=== PATIENT | male | born 1950 | race Caucasian/White ===

== ENCOUNTER 2018-03-17 11:01 | Emergency (ER) | payer MEDICARE, OTHER ==
--- NOTE | 2018-03-17 11:57 | ER Document Report ---
ED Medical Screen (RME) - General TRAVEL OUTSIDE OF THE [place] IN LAST 30 DAYS: No <HARVEY MEDRANO - Last Filed: 03/17/18 12:06> - HPI Patient complains to provider of: Pain and swelling in the left leg Onset: Other - This 68-year-old man who presents for evaluation of pain in the left lower extremity that developed over the last 3 days which he believes is related to cellulitis. He is twice had cellulitis in the past once requiring hospitalization. He has swelling in the lower legs chronically but this is worse he says it is warm, painful, making it somewhat difficult to walk. He is otherwise has no complaints denies fevers chills lightheadedness focal numbness or weakness. <CATHLEEN CASTRO - Last Filed: 03/17/18 15:12> - General Chief Complaint: Leg Swelling Stated Complaint: LEFT LEG PAIN Time Seen by Provider: 03/17/18 11:12 Notes: 68-year-old male to the emergency department complaining of left lower extremity cellulitis. Has had multiple rounds of cellulitis to left lower extremity in the past. Began having fever several days ago. Noticed the redness of his left leg shortly afterwards. Also states that he has a mild rash in his groin that he wants to get checked out. I have greeted and performed a rapid initial assessment of this patient. A comprehensive ED assessment and evaluation of the patient, analysis of test results and completion of the medical decision making process will be conducted by additional ED providers. (HAREVY MEDRANO) - Related Data Allergies/Adverse Reactions: iodine Allergy (Verified 03/17/18 11:05) Past Medical History - General Information source: Patient - Social History Cigarette use (# per day): No Chew tobacco use (# tins/day): No Frequency of alcohol use: None Drug Abuse: None - Medical History Medical History: Other - Hypertension, hyperlipidemia, recurrent cellulitis <CATHLEEN CASTRO - Last Filed: 03/17/18 15:12> Review of Systems - Review of Systems Musculoskeletal: See HPI -: Yes All other systems reviewed and negative <CATHLEEN CASTRO - Last Filed: 03/17/18 15:12> Physical Exam - Vital signs Interpretation: Normal <HARVEY MEDRANO - Last Filed: 03/17/18 12:06> - General General appearance: Appears well In distress: None - HEENT Head: Normocephalic Eyes: Normal Conjunctiva: Normal - Respiratory Respiratory status: No respiratory distress Chest status: Nontender Breath sounds: Normal - Cardiovascular Rhythm: Regular Heart sounds: Normal auscultation Murmur: No - Abdominal Inspection: Normal Distension: No distension - Back Back: Normal - Extremities General upper extremity: Normal inspection General lower extremity: Other - The left lower extremity demonstrates +2 pitting edema, the right lower extremity demonstrates +2 pitting edema, there is marked erythema extending from the mid foot along the left foot into the bustos , there is no desquamation, there is a negative Nikolsky sign, the skin is warm to the touch. <CATHLEEN CASTRO - Last Filed: 03/17/18 15:12> - Vital signs Vitals: Temp Pulse Resp BP Pulse Ox 98.9 F 96 20 136/63 H 99 03/17/18 11:08 03/17/18 11:08 03/17/18 11:08 03/17/18 11:08 03/17/18 11:08 - Extremities Notes: The left lower extremity demonstrates redness up to the mid calf area with significant edema noted to the left lower extremity. Edema to the right lower extremity as well. Clubfoot. (HAVREY MEDRANO) Course <HARVEY MEDRANO - Last Filed: 03/17/18 12:06> - Laboratory Result Diagrams: 03/17/18 12:11 03/17/18 12:11 <CATHLEEN CASTRO - Last Filed: 03/17/18 15:12> - Re-evaluation Re-evalutation: 03/17/18 15:09 68-year-old male presented for evaluation of pain and swelling the right lower extremity, is consistent with previous episodes of cellulitis is twice had cellulitis in the past was requiring hospitalization. He does not believe this is a bad at that time. He has not had any systemic signs of infection, overall is well-appearing. He still able to ambulate without any assistance. Through triage she had ordered already a DVT study as well as labs. He does have a modestly elevated CRP and ESR which are in conjunction likely with his developing cellulitis he does not have any suggestion of osteomyelitis. Current plan will be for this patient to undergo discharge return precautions prescription for both Keflex as well as clindamycin to cover presumptively for possible developing staph infection. He is given very strict return precautions and importance of follow-up was explained over again. (CATHLEEN CASTRO) - Vital Signs Vital signs: Temp Pulse Resp BP Pulse Ox 97.5 F 80 20 140/72 H 97 03/17/18 15:00 03/17/18 15:00 03/17/18 15:00 03/17/18 15:00 03/17/18 15:00 - Laboratory Laboratory results interpreted by ma: 03/17/18 03/17/18 12:11 12:11 Monocytes % (Manual) 2 L Metamyelocytes % 1 H ESR 84 H Potassium 5.4 H BUN 26 H Glucose 240 H AST 9 L ALT 19 L C-Reactive Protein 46.9 H Doctor's Discharge <HARVEY MEDRANO - Last Filed: 03/17/18 12:06> <CATHLEEN CASTRO - Last Filed: 03/17/18 15:12> - Discharge Clinical Impression: Cellulitis Condition: Stable Disposition: HOME, SELF-CARE Instructions: Cellulitis ([facility]) Additional Instructions: You were seen today in the emergency department for cellulitis, you had an evaluation including a physical exam and tests of your blood. Take the antibiotic prescribed as directed, return for any worsening fevers or chills, if it is not improved within 24 hours, If you begin to feel worse. Otherwise follow-up with your primary physician as early as possible next week for recheck. Prescriptions: Cephalexin Monohydrate [Keflex 500 mg Capsule] 500 mg PO Q6H 7 Days #30 capsule Clindamycin HCl [Cleocin 150 mg Capsule] 450 mg PO TID #40 capsule Referrals: RAZ LÓPEZ MD [HONORARY] - Follow up as needed
[2018-03-17 13:05] LABS: HEMATOCRIT 44.2 % (37.9-51.0); HEMOGLOBIN 14.7 g/dL (13.5-17.0); MEAN CORPUSCULAR HEMOGLOBIN 29.1 pg (27.0-33.4); MEAN CORPUSCULAR HGB CONC 33.3 g/dL (32.0-36.0); MEAN CORPUSCULAR VOLUME 87 fl (80-97); PLATELET COUNT 221 10^3/uL (150-450); RED BLOOD COUNT 5.06 10^6/uL (4.35-5.55); RED CELL DISTRIBUTION WIDTH 13.8 % (11.5-14.0); WHITE BLOOD COUNT 8.5 10^3/uL (4.0-10.5)
[2018-03-17 13:07] LABS: ALANINE AMINOTRANSFERASE 19 U/L (21-72); ALKALINE PHOSPHATASE 93 U/L (38-126); ANION GAP 16 (5-19); ASPARTATE AMINO TRANSFERASE 9 U/L (17-59); BILIRUBIN,DIRECT 0.4 mg/dL (0.0-0.4); BILIRUBIN,TOTAL 0.6 mg/dL (0.2-1.3); BLOOD UREA NITROGEN 26 mg/dL (7-20); C-REACTIVE PROTEIN 46.9 mg/L (<10.0); CALCIUM 9.9 mg/dL (8.4-10.2); CARBON DIOXIDE 25 mmol/L (22-30); CHLORIDE 99 mmol/L (98-107); GLUCOSE 240 mg/dL (75-110); POTASSIUM 5.4 mmol/L (3.6-5.0); SODIUM 139.5 mmol/L (137-145); TOTAL PROTEIN 7.1 g/dL (6.3-8.2)
[2018-03-17 13:41] LABS: ERYTHROCYTE SEDIMENTATION RATE 84 mm/hr (0-20)
--- NOTE | 2018-03-17 13:49 | RADIOLOGY REPORT (SQ) ---
EXAM DESCRIPTION: FOOT LEFT COMPLETE COMPLETED DATE/TIME: 03/17/2018 1:40 pm REASON FOR STUDY: concern for gas in the heel COMPARISON: None. NUMBER OF VIEWS: Three views. TECHNIQUE: AP, lateral and oblique radiographic images acquired of the left foot. LIMITATIONS: None. FINDINGS: MINERALIZATION: Osteopenia. BONES: No acute fracture or dislocation. No worrisome bone lesions. JOINTS: No effusions. SOFT TISSUES: No gas is present in the soft tissues. OTHER: No other significant finding. IMPRESSION: NEGATIVE STUDY OF THE LEFT FOOT. NO RADIOGRAPHIC EVIDENCE OF ACUTE INJURY. TECHNICAL DOCUMENTATION: JOB ID: [id number] [employer]- All Rights Reserved Reading location - IP/workstation name: [email or web address]
[2018-03-17 13:51] LABS: ABSOLUTE LYMPHOCYTES# (MANUAL) 2.1 10^3/uL (0.5-4.7); ABSOLUTE MONOCYTES # (MANUAL) 0.2 10^3/uL (0.1-1.4); ABSOLUTE NEUTROPHILS# (MANUAL) 5.9 10^3/uL (1.7-8.2); BASOPHILS % (MANUAL) 1 % (0-2); EOSINOPHILS % (MANUAL) 3 % (0-6); LYMPHOCYTES % (MANUAL) 24 % (13-45); METAMYELOCYTES % (MANUAL) 1 % (0); MONOCYTES % (MANUAL) 2 % (3-13); SEGMENTED NEUTROPHILS % (MAN) 68 % (42-78); TOTAL CELLS COUNTED 100
[2018-03-17 13:52] LABS: PLATELET COMMENT ADEQUATE; RBC MORPHOLOGY COMMENT NORMO-CYTIC/CHROMIC; TOXIC GRANULATION SLIGHT; TOXIC VACUOLATION PRESENT
[2018-03-17 15:05] VITALS: BP 140/72
[2018-03-17] MEDS ORDERED: CEPHALEXIN 500 MG CAPSULE PO ONE (15:06)
[2018-03-17] MEDS ORDERED: CLINDAMYCIN HCL 150 MG CAPSULE PO ONE (15:06)
--- NOTE | 2018-03-18 11:21 | XCELERA REPORT ---
[address] [address] Lower Extremity Venous Evaluation Name: ISAMAR ROBERSON Age: 68 yrs Gender: Male : 1950 Patient Status: Emergency Patient Location: ER Study Date: 03/17/2018 01:56 PM Procedure: Color flow and duplex imaging of the veins of the left lower extremity as well as the right Common Femoral vein. Reason For Study: lle swelling and redness Ordering Physician: HARVEY MEDRANO Performed By: Jonas Mary Right Sided Venous Evaluation The right common femoral vein is fully compressible. Spontaneous and phasic flow is present in the right common femoral vein. Left Sided Venous Evaluation Normal vessel filling wall to wall, compression and augmentation as well as Colour flow down to the infrageniculate veins. Interpretation Summary No duplex evidence of DVT or obstruction in the left lower extremity nor in the right Common Femoral vein. : HARVEY MEDRANO > Vinod Harris
== END 2018-03-17 15:14 | disposition home or self-care (01) ==
LOC: ER 11:01
DX: L03.116 Cellulitis of left lower limb (principal); M79.605 Pain in left leg
CPT/HCPCS: 99284; 36415; 87040; 85025; 85652; 86140; 80053; 83605; 93971 ×2; 73630; A9270 ×2

== ENCOUNTER 2019-06-28 12:48 | Day surgery (SDC) | payer MEDICARE, OTHER ==
[~2019-06-28 12:48] MED LIST: KETOROLAC TROMETHAMINE 0.45% 4 DROP/0.4 ML DROPERETTE OD PRN
[2019-06-28] MEDS: CYCLOPENTOLATE 0.2%/PHENYLEPHRINE 1% OPH SOLN 2 ML OD PRN ×3 (14:22→14:42)
[2019-06-28] MEDS: TROPICAMIDE 1% OPH SOLN 15 ML OD PRN ×3 (14:22→14:42)
[2019-06-28] MEDS: BESIFLOXACIN HCL 0.6% OPH SUSP 5 ML BOTTLE OD PRN ×4 (14:22→15:23)
[2019-06-28] MEDS: TETRACAINE HCL 0.5% OPH SOLN 4 ML OD PRN ×4 (14:23→14:58)
[2019-06-28] MEDS ORDERED: MIDAZOLAM 2 MG/2 ML INJ ONE (14:33)
[2019-06-28] MEDS: CHONDR SU A NA/HYALUR INTRAOC KIT (SURGICARE) ONE ×2 (15:08)
[2019-06-28] MEDS: LIDOCAINE 1% INJ-PF (10 MG/ML) 30 ML SDV ONE ×2 (15:08)
[2019-06-28] MEDS: EPINEPHRINE INJ/PF 1 MG/1 ML AMPULE ONE ×2 (15:08)
[2019-06-28] MEDS: DORZOLAMIDE HCL 2%/TIMOLOL MALEAT 0.5% OPH SOLN 10 ML OD PRN ×2 (15:23)
--- NOTE | 2019-06-30 11:17 | Operative Report ---
Operative Report-[facility] Operative Report: DATE OF SURGERY: [June 28, 2019] PREOPERATIVE DIAGNOSIS: NUCLEAR, CORTICAL, AND POSTERIOR SUBCAPSULAR CATARACTS IN THE LEFT EYE POSTOPERATIVE DIAGNOSIS: NUCLEAR, CORTICAL, AND POSTERIOR SUBCAPSULAR CATARACTS IN THE LEFT EYE, WITH SMALL PUPIL OPERATION: PHACOEMULSIFICATION AND POSTERIOR CHAMBER INTRAOCULAR LENS IMPLANT WITH A MALYUGIN RING TO EXPAND THE PUPIL IN THE LEFTEYE SURGEON: Bill Fregoso MD KAITARA TARAKA: [lakshmi] ANESTHESIA: Topical with IV sedation ESTIMATED BLOOD LOSS: None TISSUE REMOVED OR ALTERED: None COMPLICATIONS: None INDICATIONS FOR SURGERY: [Mr. Rcahel is a 69 year-old male who presented to our clinic complaining of difficulty seeing to read and to drive. On examination he was found to have a best corrected visual acuity of 20/70. mHe was also found to have a 2+ nuclear 2+ cortical 2+ posterior subcapsular cataract In the left eye. We discussed the risks, benefits and alternatives of cataract extraction and intraocular lens implant as a means of improving his vision. Risks that were presented to the patient included infection, bleeding, retinal detachment, persistent corneal swelling and possible need for additional surgery. And I also explain to the patient may need to wear glasses after surgery. After our discussion he indicated his interest in having this procedure performed by signing and informed, witnessed consent form.] PROCEDURE: On the day of surgery, the patient was given a topical application to the left eye while in the preop holding area that consist of lidocaine jelly, cyclopentolate, Mydriacyl, phenylephrine and Tetracaine. The patient was taken to the operating room in the supine position in a standard eye bed. Intravenous sedation was administered and the patient was prepped and draped in the standard ophthalmic fashion in the operating room. Timeout was performed. Attention was directed to the right eye, where paracentesis was created at the 5:30 position at the limbus with a 15 degree blade. The anterior chamber was filled with 0.3 mL's of 1% methylparaben free lidocaine, and after 30 seconds, the anterior chamber was filled with viscoelastic material. A 3-plane corneal incision was then made with a markus keratome at 3 o'clock position at the limbus. Despite use of the dilating drops, the inner chamber lidocaine, and viscoelastic material, the pupil remained dilated only to about [4] mm in diameter. I chose to use a Malyugin ring to expand the pupil for better visualization of the lens during the remainder of the surgery. The [6.25] mm Malyugin was removed from package inspected and found to be free of defects. It was loaded into its manager of financial reporting. The tip of the manager of financial reporting was passed through that temporal limbal wound and through this the site the ring was advanced into the anterior chamber, where it grasped the iris at the pupil margin at the 3 o'clock, 6 o'clock, 9 oclock and 12 o'clock positions, and this extended the pupil to a [6.25] mm diameter. A continuous curvilinear capsulorrhexis was then made in the anterior capsule of the lens with a set of cystotome. The lens was hydrodissected using balanced saline solution and the lens nucleus was removed by phacoemulsification using the divide and conquer technique. The CDE was [8.02]. The cortical material was removed from the posterior capsular bag with irrigation and aspiration. The posterior capsular bag was then filled with viscoelastic material, and a lens implant was inserted into the posterior capsular bag. The lens chosen for this case is a one-piece acrylic lens from [[employer], model SN60WF, serial number [id number], lens power 21.0 D]. The lens was removed and inspected, and found to be without defects. It was loaded into an [] manager of financial reporting. The manager of financial reporting was passed through temporal limb of the wound into the posterior capsular bag. It was positioned in the posterior capsular bag the Behzad spatula. There viscoelastic material was then removed from the anterior chamber and the posterior capsule bag by irrigation and aspiration. The Malyugin ring was disengaged from the iris with Sinskey hook, and it was removed from the temporal lobe of the wound with the Sinskey hook. The viscoelastic material was then removed by irrigation and aspiration. The wounds were closed by stromal hydration. They were tested with Weck-Shahida sponges and found to have no leaks. The intraocular pressure was assessed by manual palpation and found to be with in the physiologic range. The drapes and speculum were removed. Periocular skin was washed with a wet followed by a dry 4 x 4 gauze and drops of Besivance, Durezol, and Combigan were installed in the inferior cul-de-sac of the right eye. The eye was covered with a Petit shield. The patient was taken to the recovery room in good condition. The patient tolerated the procedure well. The patient was given a prescription for Zymaxid to use every 2 hours while awake in the right eye, and he will return to my clinic for follow-up evaluation with me the day after surgery.
== END 2019-06-28 16:11 | disposition home or self-care (01) ==
LOC: SC 12:48
PROVIDERS: ATTEND Ophthalmology
DX: H25.811 Combined forms of age-related cataract, right eye (principal); I10 Essential (primary) hypertension; I25.2 Old myocardial infarction; E11.9 Type 2 diabetes mellitus without complications; I50.9 Heart failure, unspecified; F17.210 Nicotine dependence, cigarettes, uncomplicated
CPT/HCPCS: 66984; 82962; J2250; J3490 ×3; A9270; J0171; 142

== ENCOUNTER 2020-04-25 14:54 | Inpatient (IN) | payer MEDICARE, OTHER ==
[2020-04-25 15:52] LABS: ABSOLUTE BASOPHILS # (AUTO) 0.1 10^3/uL (0.0-0.2); ABSOLUTE EOSINOPHILS # (AUTO) 0.1 10^3/uL (0.0-0.6); ABSOLUTE LYMPHOCYTES (AUTO) 1.6 10^3/uL (0.5-4.7); ABSOLUTE MONOCYTES (AUTO) 0.5 10^3/uL (0.1-1.4); ABSOLUTE NEUT (AUTO) 4.8 10^3/uL (1.7-8.2); BASOPHILS % (AUTO) 1.2 % (0-2); EOSINOPHILS % (AUTO) 1.9 % (0-6); HEMATOCRIT 41.9 % (37.9-51.0); HEMOGLOBIN 13.9 g/dL (13.5-17.0); LYMPHOCYTES % (AUTO) 22.9 % (13-45); MEAN CORPUSCULAR HEMOGLOBIN 29.3 pg (27.0-33.4); MEAN CORPUSCULAR HGB CONC 33.2 g/dL (32.0-36.0); MEAN CORPUSCULAR VOLUME 88 fl (80-97); MONOCYTES % (AUTO) 7.1 % (3-13); PLATELET COUNT 191 10^3/uL (150-450); RED BLOOD COUNT 4.76 10^6/uL (4.35-5.55); RED CELL DISTRIBUTION WIDTH 14.4 % (11.5-14.0); SEGMENTED NEUTROPHILS % (AUTO) 66.9 % (42-78); TOTAL CELLS COUNTED % (AUTO) 100 %; WHITE BLOOD COUNT 7.1 10^3/uL (4.0-10.5)
--- NOTE | 2020-04-25 16:08 | RADIOLOGY REPORT (SQ) ---
EXAM DESCRIPTION: CHEST SINGLE VIEW IMAGES COMPLETED DATE/TIME: 04/25/2020 3:49 pm REASON FOR STUDY: sob COMPARISON: None. EXAM PARAMETERS: NUMBER OF VIEWS: One view. TECHNIQUE: Single frontal radiographic view of the chest acquired. RADIATION DOSE: NA LIMITATIONS: None. FINDINGS: LUNGS AND PLEURA: Low lung volumes limits examination. No acute pulmonary consolidation. No pneumothorax or pleural effusion. MEDIASTINUM AND HILAR STRUCTURES: No masses. Contour normal. HEART AND VASCULAR STRUCTURES: Cardiomegaly. Normal vasculature. BONES: No acute findings. HARDWARE: Prior anterior median sternotomy and CABG. Partially visualized hardware lower cervicotho racic spine. OTHER: No other significant finding. IMPRESSION: 1. Low lung volumes limits the examination. No acute pulmonary consolidation. 2. Cardiomegaly. TECHNICAL DOCUMENTATION: JOB ID: [id number] 2010 [employer]- All Rights Reserved Reading location - IP/workstation name: [email or web address]
[2020-04-25 16:10] LABS: ALBUMIN 3.9 g/dL (3.5-5.0); ALKALINE PHOSPHATASE 86 U/L (38-126); ANION GAP 5 (5-19); ASPARTATE AMINO TRANSFERASE 12 U/L (17-59); BILIRUBIN,DIRECT 0.4 mg/dL (0.0-0.4); BILIRUBIN,TOTAL 0.4 mg/dL (0.2-1.3); BLOOD UREA NITROGEN 25 mg/dL (7-20); CALCIUM 9.5 mg/dL (8.4-10.2); CARBON DIOXIDE 34 mmol/L (22-30); CHLORIDE 99 mmol/L (98-107); CREATINE KINASE 52 U/L (55-170); GLUCOSE 229 mg/dL (75-110); TOTAL PROTEIN 6.6 g/dL (6.3-8.2)
[2020-04-25 16:21] LABS: CREATINE KINASE MB 3.07 ng/mL (<4.55)
[2020-04-25 16:23] LABS: TROPONIN I 0.22 ng/mL
--- NOTE | 2020-04-25 16:44 | EKG REPORT ---
SEVERITY:- ABNORMAL ECG - SINUS RHYTHM NONSPECIFIC INTRAVENTRICULAR CONDUCTION DELAY MINIMAL ST DEPRESSION, LATERAL LEADS : Confirmed by: Bon Juárez MD 25-Apr-2020 16:43:12
[2020-04-25] MEDS ORDERED: ASPIRIN 325 MG TABLET PO ONE (18:30)
[2020-04-25] MEDS ORDERED: MORPHINE SULFATE 10 MG/ML INJ IV ONE (18:35)
--- NOTE | 2020-04-25 19:49 | ER Document Report ---
ED General - General Chief Complaint: Shortness Of Breath Stated Complaint: SHORTNESS OF BREATH Time Seen by Provider: 04/25/20 17:32 Primary Care Provider: DOROTHY MARINA FNP [Primary Care Provider] - Follow up as needed TRAVEL OUTSIDE OF THE [place] IN LAST 30 DAYS: No - HPI Notes: Patient is a 70-year-old male with a past medical history of open heart surgery and chronic back pain who presents with back pain. He states that he has seen pain management and also had numerous MRIs on his back. He states the back pain worsened the past several days. He is somewhat of a poor historian and is unable to tell me what medications he takes. Patient states he has had chest pain off and on. He does not wear oxygen at home. He was found to have a pulse ox of 90% in triage. - Related Data Allergies/Adverse Reactions: iodine Allergy (Verified 03/17/18 11:05) Past Medical History - General Information source: Patient - Social History Smoking Status: Current Every Day Smoker Family History: Reviewed & Not Pertinent - Past Medical History Cardiac Medical History: Reports: Hx Heart Attack - 35 YEARS, Hx Hypertension Pulmonary Medical History: Denies: Hx Asthma Neurological Medical History: Denies: Hx Cerebrovascular Accident, Hx Seizures Endocrine Medical History: Reports: Hx Diabetes Mellitus Type 2 Renal/ Medical History: Denies: Hx Peritoneal Dialysis GI Medical History: Denies: Hx Hepatitis, Hx Hiatal Hernia, Hx Ulcer Infectious Medical History: Denies: Hx Hepatitis Past Surgical History: Reports: Hx Cholecystectomy, Hx Open Heart Surgery - 35 YEARS. Denies: Hx Pacemaker Review of Systems - Review of Systems Notes: CONSTITUTIONAL: No fever, fatigue or weight loss. HENT: No congestion, ear pain, or sore throat. EYES: No recent vision problems or eye pain. ENDOCRINE: No thyroid problems. No polyuria or polydipsia. CARDIOVASCULAR: Positive for occasional chest pain RESPIRATORY: Positive for shortness of breath GASTROINTESTINAL: No abdominal pain, nausea, vomiting, bloody stools or diarrhea. MUSCULOSKELETAL: Positive for back pain. NEUROLOGIC: No seizures. No headache, focal weakness or sensory changes. HEMATOLOGIC: No unusual bruising or bleeding. PSYCHIATRIC: No depression or anxiety. Physical Exam - Vital signs Vitals: Temp Pulse Resp BP Pulse Ox 97.8 F 90 22 H 146/72 H 90 L 04/25/20 14:55 04/25/20 14:55 04/25/20 14:55 04/25/20 14:55 04/25/20 14:55 Interpretation: Normal - Notes Notes: VITAL SIGNS: 90% on room air GENERAL: No acute distress, non-toxic appearance. HEAD: Normal with no signs of head trauma. EYES: EOMI, conjunctiva normal, no discharge. EARS: Hearing grossly intact. NOSE: Normal. NECK: Normal range of motion, no tenderness, supple, no lymphadenopathy, No adenopathy, no JVD. CHEST: Clear breath sounds bilaterally. CARDIAC: Regular rate and rhythm. S1 and S2, without murmurs, gallops, or rubs. VASCULAR: Chronic lower extremity edema ABDOMEN: Normal and soft with no tenderness, no masses or pulsatile masses. GENITOURINARY: Normal, No tenderness LYMPATHTIC: No lymphadenopathy noted. NEUROLOGICAL: Alert and oriented x 3. No focal sensory or strength deficits. Speech normal. Follows commands appropriately. PSYCHIATRIC: Normal Affect, judgement and mood. Course - Re-evaluation Re-evalutation: 04/25/20 19:57 He has an elevated troponin. I do not have a previous. His EKG is concerning for minimal ST depressions laterally. Patient is denying any current chest pain. He is complaining of his chronic back pain. I did discuss with cardiology who stated that patient could be admitted to this facility for medical management. I ordered a CTA as he complained of back pain and has an elevated troponin to rule out dissection. Patient adamantly refused. He states he does not want contrast dye even if he is pretreated and does not want the scan done. I explained to him the risks of not having the procedure and he verbalized understanding. I discussed with the hospitalist who will admit the patient. His heart score is 6. 04/25/20 23:16 04/25/20 23:19 - Vital Signs Vital signs: Temp Pulse Resp BP Pulse Ox 98.1 F 90 16 141/68 H 94 04/25/20 16:14 04/25/20 14:55 04/25/20 20:31 04/25/20 20:31 04/25/20 20:31 - Laboratory Result Diagrams: 04/25/20 15:38 04/25/20 15:38 Laboratory results interpreted by me: 04/25/20 04/25/20 15:38 15:38 RDW 14.4 H Carbon Dioxide 34 H BUN 25 H Glucose 229 H AST 12 L Creatine Kinase 52 L - Diagnostic Test Radiology reviewed: Image reviewed, Reports reviewed - EKG Interpretation by Me EKG shows normal: Sinus rhythm Rate: Normal Rhythm: NSR When compared to previous EKG there are: Previous EKG unavailable Additional EKG results interpreted by me: 04/25/20 20:15 EKG interpreted by me. Sinus rhythm at a rate of 66. QTc 420. Minimal ST depressions in the lateral leads. No previous EKG available for comparison. Discharge - Discharge Clinical Impression: Elevated troponin Chest pain Qualifiers: Chest pain type: unspecified Qualified Code(s): R07.9 - Chest pain, unspecified Condition: Stable Disposition: ADMITTED INPATIENT Admitting Provider: Garrett (Hospitalist) Unit Admitted: Telemetry Referrals: DOROTHY MARINA FNP [Primary Care Provider] - Follow up as needed
[2020-04-25] MEDS ORDERED: FENTANYL CITRATE INJ/PF 100 MCG/2 ML AMPUL IV ONE (20:04)
[2020-04-25] MEDS ORDERED: MAG HYDROX/AL HYDROX/SIMETH SUSP 30 ML UDCUP PO PRN (22:14)
[2020-04-25] MEDS ORDERED: DEXTROSE 50%-WATER 25 GM/50 ML DISP.SYRIN IV PRN ×2 (22:32)
[2020-04-25] MEDS ORDERED: DEXTROSE 40% GEL 15 GM TUBE PO PRN ×2 (22:32)
[2020-04-25] MEDS ORDERED: GLUCAGON,HUMAN RECOMB 1 MG INJ IM PRN (22:32)
[2020-04-25] MEDS ORDERED: NICOTINE 7 MG/24 HR PATCH.TD24 TD PRN (22:39)
[2020-04-25] MEDS ORDERED: MORPHINE SULFATE 10 MG/ML INJ IV PRN (22:43)
[2020-04-25] MEDS ORDERED: NITROGLYCERIN 0.4 MG/TAB 25 TAB/BOTTLE SL PRN (22:55)
--- NOTE | 2020-04-25 22:56 | PDOC H&P ---
History of Present Illness Admission Date/PCP: NELY MEDEROS Patient complains of: Back pain with increasing shortness of breath History of Present Illness: ISAMAR ROBERSON is a 70 year old male with super morbid obesity (BMI 63) with a history of myocardial infarction and bypass surgery some 30+ years ago. He recently saw his dough catcher and reports a good visit with "normal "testing. He is not normally on oxygen at home. He does have oxygen at home for some reason. He states that he started needing it several days ago when he noted increasing shortness of breath with physical activity. The shortness of breath seem to get worse with less activity. At home he has been fairly immobile and reports that the shortness of breath has been detrimental to his activities of daily living. From history it seems that he is not very active at home for multiple reasons. He does have his morbid obesity, diabetes, heart disease, hypertension, hyperlipidemia as well as chronic venous insufficiency with cobblestone skin and serous weeping. He has a Charcot foot on the left. He states that his heels get dry and crack. He reports that this happens sometimes on the toes as well. He has diffuse onychomycosis. He denies sleep apnea but likely has morbid obesity hypoventilation. On exam his troponin was 0.220 with the next troponin 0 0.212 on a third troponin pending. Twelve-lead EKG shows possible ST changes laterally. Chest x-ray suggests cardiomegaly. He states that he did have an echocardiogram recently with his dough catcher and we will attempt to obtain those records as well as a recent EKG. He actually states that the original problem is his chronic back pain. He reports having had multiple MRI studies. He cannot lay back because of his back pain. He did not report breathing issues with change in position (orthopnea). He has a history of esophageal spasm. His history specifically related to his myocardial infarction and bypass revealed a very focused discomfort in the left parasternal area. He is not having that discomfort at this point. He has been afebrile and is not aware of any COVID exposure. The patient will be admitted for serial troponins. The emergency room physician did in fact discussed the case with cardiology and they will be following the patient tomorrow. At this point I do not appreciate any significant heart failure and the patient is not on furosemide at home. He has not tachycardic at this point. His carvedilol dosing was 25 mg once daily as well as benazepril 40 mg daily and amlodipine 10 mg daily. Unfortunately he continues to smoke. He states a pack of cigarettes usually lasts him 4 weeks. He reports that the latest medication that his regulatory leader tried for his diabetes made him gain weight. He is only listed is taking metformin 1 g twice a day in the medications in his chart. He will have before meals and at bedtime Accu-Cheks with sliding scale coverage. He will be admitted to telemetry. He will have serial troponins. I will repeat his EKG in the morning. For his heart disease he is on an adequate statin therapy especially with his underlying diabetes. I have ordered atorvastatin 40 mg as well as an aspirin. We are continuing his SHARLA inhibitor with lisinopril 40 mg daily as we do not carry benazepril. I have changed his carvedilol to 12.5 mg twice daily as it is not a 24-hour medication. Past Medical History Cardiac Medical History: Reports: Coronary Artery Disease, Myocardial Infarction - 35 YEARS, Hypertension Pulmonary Medical History: Denies: Asthma, Chronic Obstructive Pulmonary Disease (COPD), Sleep Apnea - Patient denies sleep apnea Neurological Medical History: Denies: Ischemic CVA, Seizures Endocrine Medical History: Reports: Diabetes Mellitus Type 2, Other - Morbid obesity Renal/ Medical History: Denies: Chronic Kidney Disease Malignancy Medical History: Reports: None GI Medical History: Reports: Gastroesophageal Reflux Disease, Other - Reports history of esophageal spasm Denies: Hepatitis, Hiatal Hernia Musculoskeltal Medical History: Reports: Other - Reports chronic neck and back pain. Charcot foot left side Skin Medical History: Reports: Other - Weeping lesions legs, chronic lymphedema, onychomycosis toes Psychiatric Medical History: Reports: Tobacco Dependency Denies: Alcohol Dependency, Substance Abuse Traumatic Medical History: Reports: None Hematology: Denies: Anemia, Sickle Cell Disease Infectious Medical History: Denies: Clostridium Difficile, Hepatitis B, Hepatitis C Past Surgical History Past Surgical History: Reports: Cholecystectomy, Coronary Artery Bypass Graft Denies: Pacemaker Social History Information Source: Patient Lives with: Spouse/Significant other Smoking Status: Current Every Day Smoker Electronic Cigarette use?: No Frequency of Alcohol Use: None Hx Recreational Drug Use: No Hx Prescription Drug Abuse: No - Advance Directive Resuscitation Status: Do Not Resuscitate Surrogate healthcare decision maker:: His would be the designated surrogate decision-maker Family History Parental Family History Reviewed: No Children Family History Reviewed: No Sibling(s) Family History Reviewed.: No Medication/Allergy Home Medications: Amlodipine Besylate [Norvasc 10 mg Tablet] 10 mg PO DAILY 06/25/19 Baclofen [Baclofen 10 mg Tablet] 1 tab PO TID 06/25/19 Benazepril HCl [Lotensin] 40 mg PO DAILY 06/25/19 Carvedilol [Coreg 25 mg Tablet] 1 tab PO DAILY 06/25/19 Finasteride [Proscar 5 mg Tablet] 5 mg PO DAILY 06/25/19 Meloxicam [Mobic] 15 mg PO DAILY 06/25/19 Metformin HCl [Glucophage] 1,000 mg PO BID 06/25/19 Simvastatin [Zocor 20 mg Tablet] 20 mg PO QHS 06/25/19 Tamsulosin HCl [Flomax 0.4 mg Cap.sr] 0.4 mg PO DAILY 06/25/19 Tramadol HCl [Ultram] 100 mg PO TID 06/25/19 Difluprednate [Durezol] 5 ml OP ASDIR PRN 06/28/19 Gatifloxacin [Zymaxid] 2.5 ml OP ASDIR PRN 06/28/19 Nepafenac [Ilevro] 1.7 ml OP ASDIR PRN 06/28/19 Allergies/Adverse Reactions: iodine Allergy (Verified 03/17/18 11:05) Review of Systems All systems: reviewed and no additional remarkable complaints except as stated Constitutional: PRESENT: fatigue Cardiovascular: PRESENT: dyspnea on exertion, edema Respiratory: PRESENT: dyspnea Musculoskeletal: PRESENT: back pain, other - Neck pain, Charcot foot Integumentary: PRESENT: other - Weeping lesions legs Physical Exam Vital Signs: Temp Pulse Resp BP Pulse Ox 98.1 F 90 16 141/68 H 94 04/25/20 16:14 04/25/20 14:55 04/25/20 20:31 04/25/20 20:31 04/25/20 20:31 Intake & Output 04/24/20 04/25/20 04/26/20 06:59 06:59 06:59 Weight 155.8 kg General appearance: PRESENT: cooperative, mild distress, morbidly obese, well- developed, well-nourished Head exam: PRESENT: atraumatic, normocephalic Eye exam: PRESENT: conjunctiva pink, EOMI, PERRLA. ABSENT: periorbital swelling, scleral icterus Ear exam: PRESENT: normal external ear exam. ABSENT: bleeding, drainage Mouth exam: PRESENT: moist, tongue midline Teeth exam: PRESENT: poor dentation Neck exam: PRESENT: lymphadenopathy - Bilateral nontender submandibular lymph nodes palpable, other - Large neck. ABSENT: carotid bruit, JVD, tenderness Respiratory exam: PRESENT: clear to auscultation carlos, decreased breath sounds - Decreased sounds in general due to body habitus, symmetrical, unlabored. ABSENT: rales, rhonchi, tachypnea, wheezes Cardiovascular exam: PRESENT: RRR, +S1, +S2, other - Difficult to auscultate. Decreased heart sounds due to body habitus Pulses: PRESENT: normal radial pulses, other - Unable to palpate dorsalis pedis pulses due to edema GI/Abdominal exam: PRESENT: normal bowel sounds, other - Very large protuberant abdomen. ABSENT: guarding, tenderness Rectal exam: PRESENT: deferred Gentrourinary exam: ABSENT: indwelling catheter Extremities exam: PRESENT: pedal edema, other - Nonpitting edema, Musculoskeletal exam: PRESENT: deformity - Charcot foot. ABSENT: ambulatory - Extremely limited mobility due to morbid obesity, normal inspection - Marked swelling. Neurological exam: PRESENT: alert, awake, oriented to person, oriented to place, oriented to time, oriented to situation, CN II-XII grossly intact. ABSENT: altered Psychiatric exam: PRESENT: appropriate affect - Affect reflects his current discomfort. ABSENT: agitated, anxious Focused psych exam: ABSENT: delusional, paranoid, restlessness Skin exam: PRESENT: dry - Dry scaly skin bilateral lower extremities, other - Dressings over lesions on legs. I did not unwrap his legs. Cobblestoning stigmata of chronic lower extremity edema Results Laboratory Results: 04/25/20 15:38 04/25/20 15:38 04/25/20 04/25/20 15:38 15:38 WBC 7.1 RBC 4.76 Hgb 13.9 Hct 41.9 MCV 88 MCH 29.3 MCHC 33.2 RDW 14.4 H Plt Count 191 Seg Neutrophils % 66.9 Sodium 137.8 Potassium 5.0 Chloride 99 Carbon Dioxide 34 H Anion Gap 5 BUN 25 H Creatinine 0.75 Est GFR ( Amer) > 60 Glucose 229 H Calcium 9.5 Total Bilirubin 0.4 AST 12 L Alkaline Phosphatase 86 Total Protein 6.6 Albumin 3.9 04/25/20 04/25/20 04/25/20 15:38 15:38 19:37 Creatine Kinase 52 L CK-MB (CK-2) 3.07 Troponin I 0.220 0.212 Impressions: Chest X-Ray 04/25/20 15:11 IMPRESSION: 1. Low lung volumes limits the examination. No acute pulmonary consolidation. 2. Cardiomegaly. Assessment and Plan - Diagnosis (1) NSTEMI (non-ST elevated myocardial infarction) Is this a current diagnosis for this admission?: Yes Plan: Patient is experiencing increasing shortness of breath with no obvious failure. His troponins are 0.[address] changes. It could be a type II myocardial infarction with strain and mismatch. We will check a third troponin. We will repeat an EKG in the morning. I have increased his statin therapy to atorvastatin 40 mg daily. I have added aspirin daily. Sublingual nitroglycerin will be available. He is already on carvedilol and benazepril. Cardiology will be seeing the patient in the morning. He states that he had a visit with his dough catcher recently and we will try and obtain those records from [facility] [facility]. (2) Coronary artery disease Qualifiers: Coronary Disease-Associated Artery/Lesion type: ely [place] artery Associated angina: with unspecified angina Is this a current diagnosis for this admission?: Yes Plan: It is difficult to tell if he really is experiencing angina. He certainly describes more of a back pain but the shortness of breath is new. The troponin elevation is certainly concerning as is the nonspecific EKG. As noted I have increased his statin therapy to atorvastatin 40 mg. We will continue the SHARLA inhibitor. I have changed the carvedilol to 12.5 mg twice daily as it is not designed as a 24-hour medication. We will continue his Norvasc although this can increase lower extremity edema. I have also added aspirin therapy with as needed sublingual nitroglycerin. Cardiology will be seeing the patient in the morning. His morbid obesity certainly puts significant strain on not only has heart but his respiratory status and musculoskeletal system as well. (3) Acute respiratory failure with hypoxia Is this a current diagnosis for this admission?: Yes Plan: The patient's main complaint is shortness of breath with exertion. He is not p rescribed oxygen at home but they do have oxygen at home and he has been wearing it for several weeks. He does not report a history of COPD. He does have his cardiac history. Chest x-ray did not suggest acute heart failure. His primary complaint for coming to the hospital was the shortness of breath and he feels that is related to the constant back pain. He does have an elevated troponin and he is being worked up for acute coronary syndrome. (4) Dyspnea on exertion Is this a current diagnosis for this admission?: Yes Plan: He reports that the dyspnea on exertion that he has been experiencing over the last week or 2 is definitely different from his baseline. There is no overt failure. I am holding on dosing any furosemide at this point. (5) Back pain Qualifiers: Back pain location: back pain in unspecified location Chronicity: chronic Back pain laterality: bilateral Qualified Code(s): M54.9 - Dorsalgia, unspecified; G89.29 - Other chronic pain Is this a current diagnosis for this admission?: Yes Plan: Back pain is actually multiple areas. He is going to see his third chronic pain management physician. He reports that they have done multiple MRIs and have not seen "anything". We will continue his tramadol, meloxicam and baclofen. There will be as needed IV morphine available. His body mass index of 62 is certainly putting significant pressure on the back. (6) Hyperglycemia due to diabetes mellitus Is this a current diagnosis for this admission?: Yes Plan: He has established with an regulatory leader. He states that the medication that she most recently tried caused him to gain a lot of weight. He is on metformin at home. I will check a hemoglobin A1c and utilize Accu-Cheks at mealtime and bedtime as well as sliding scale insulin. (7) Hypertension Qualifiers: Hypertension type: essential hypertension Qualified Code(s): I10 - Essential (primary) hypertension Is this a current diagnosis for this admission?: Yes Plan: Substitute lisinopril for benazepril. Continue Norvasc and carvedilol. Vital signs every 4 hours. (8) Hypercholesterolemia Is this a current diagnosis for this admission?: Yes Plan: The patient was on low-dose simvastatin. With his history of coronary artery disease and diabetes he should be on high-dose statin. I have started atorvastatin 40 mg daily. A lipid panel has been ordered for the morning. (9) Morbid obesity with BMI of 60.0-69.9, adult Is this a current diagnosis for this admission?: Yes Plan: The patient's BMI of 62.8 is certainly not conducive to cardio level exercise. He certainly would benefit from more aggressive diabetes control and expanding his diabetic regimen. He really needs to start with very aggressive dietary management at this point. He likely has underlying obesity hypoventilation but this should not present as an acute shortness of breath. Will monitor closely. - Time Time Spent with patient: 35 or more minutes Medications reviewed and adjusted accordingly: Yes Anticipated Discharge Disposition: Home with Home Health Anticipated Discharge Timeframe: within 72 hours - Inpatient Certification Based on my medical assessment, after consideration of the patient's comorbidities, presenting symptoms, or acuity I expect that the services needed warrant INPATIENT care.: Yes I certify that my determination is in accordance with my understanding of Medicare's requirements for reasonable and necessary INPATIENT services [42 CFR 412.3e].: Yes Medical Necessity: Significant Comorbidiites Make Outpatient Treatment Too Risky, Need Close Monitoring Due to Risk of Patient Decompensation, Need For Continuous Telemetry Monitoring, Need for Pain Control Post Hospital Care: D/C or Transfer Summary
[2020-04-25] MEDS ORDERED: CARVEDILOL 12.5 MG TABLET PO ONE (23:00)
[2020-04-25] MEDS ORDERED: TRAMADOL HCL 50 MG TABLET PO ONE (23:00)
[2020-04-25] MEDS ORDERED: INSULIN REG, HUMAN 100 UNIT/ML 3 ML VIAL (PYX) SUBCUT ONE (23:15)
[2020-04-25] MEDS ORDERED: ATORVASTATIN CALCIUM 40 MG TABLET PO ONE (23:15)
[2020-04-25 23:38] LABS: APPEARANCE,URINE CLEAR; BILIRUBIN,URINE NEGATIVE (NEGATIVE); COLOR,URINE YELLOW; GLUCOSE, URINE 50 mg/dL (NEGATIVE); KETONES,URINE NEGATIVE (NEGATIVE); PROTEIN,URINE NEGATIVE (NEGATIVE); URINE SPECIFIC GRAVITY 1.027; UROBILINOGEN,URINE NEGATIVE mg/dL (<2.0)
[2020-04-26] MEDS: ACETAMINOPHEN 325 MG TABLET PO PRN (01:24)
--- NOTE | 2020-04-26 03:43 | ADVANCED CARE ---
- Diagnosis (1) NSTEMI (non-ST elevated myocardial infarction) Diagnosis Current: Yes (2) Coronary artery disease Diagnosis Current: Yes (3) Acute respiratory failure with hypoxia Diagnosis Current: Yes (4) Dyspnea on exertion Diagnosis Current: Yes (5) Back pain Diagnosis Current: Yes (6) Hyperglycemia due to diabetes mellitus Diagnosis Current: Yes (7) Hypertension Diagnosis Current: Yes (8) Hypercholesterolemia Diagnosis Current: Yes (9) Morbid obesity with BMI of 60.0-69.9, adult Diagnosis Current: Yes Attendance: Discussion was held at the bedside with the patient Resuscitation Status: Do Not Resuscitate Discussion: The patient admits that due to his severe chronic pain his quality of life has been very poor. He does have a history of myocardial infarction with bypass and has significant comorbidities including his diabetes, hypertension, hypercholesterolemia, continued intermittent cigarette use and morbid obesity with a BMI of 62.8. He does not want to be relegated to a [place] [facility] facility or machine dependent. Considering his underlying comorbidities it is in fact reasonable for his CODE STATUS to be DO NOT RESUSCITATE. Likelihood of meaningful recovery from a catastrophic event is extremely small. Care Planning Goals: Consider documents such as living will or healthcare proxy Document(s) Completed: None at this time Time Spent: 20 minutes
[2020-04-26] MEDS: HEPARIN SOD (PORCINE) 5,000 UNIT/ML 1 ML VIAL SUBCUT SCH ×3 (05:36→21:09)
[2020-04-26] MEDS: TRAMADOL HCL 50 MG TABLET PO SCH ×3 (05:36→21:08)
[2020-04-26] MEDS: BACLOFEN 10 MG TABLET PO SCH ×3 (05:37→21:09)
[2020-04-26] MEDS: PANTOPRAZOLE SODIUM 40 MG TABLET.DR PO SCH (05:37)
[2020-04-26 06:08] LABS: ABSOLUTE BASOPHILS # (AUTO) 0.1 10^3/uL (0.0-0.2); ABSOLUTE EOSINOPHILS # (AUTO) 0.2 10^3/uL (0.0-0.6); ABSOLUTE LYMPHOCYTES (AUTO) 2.3 10^3/uL (0.5-4.7); ABSOLUTE MONOCYTES (AUTO) 0.7 10^3/uL (0.1-1.4); ABSOLUTE NEUT (AUTO) 4.1 10^3/uL (1.7-8.2); BASOPHILS % (AUTO) 0.8 % (0-2); EOSINOPHILS % (AUTO) 2.3 % (0-6); HEMATOCRIT 40.4 % (37.9-51.0); HEMOGLOBIN 13.4 g/dL (13.5-17.0); LYMPHOCYTES % (AUTO) 31.1 % (13-45); MEAN CORPUSCULAR HEMOGLOBIN 28.9 pg (27.0-33.4); MEAN CORPUSCULAR HGB CONC 33.1 g/dL (32.0-36.0); MEAN CORPUSCULAR VOLUME 87 fl (80-97); MONOCYTES % (AUTO) 9.6 % (3-13); PLATELET COUNT 177 10^3/uL (150-450); RED BLOOD COUNT 4.63 10^6/uL (4.35-5.55); RED CELL DISTRIBUTION WIDTH 14.5 % (11.5-14.0); SEGMENTED NEUTROPHILS % (AUTO) 56.2 % (42-78); TOTAL CELLS COUNTED % (AUTO) 100 %; WHITE BLOOD COUNT 7.4 10^3/uL (4.0-10.5)
[2020-04-26 06:21] LABS: ANION GAP 6 (5-19); BLOOD UREA NITROGEN 22 mg/dL (7-20); CALCIUM 9.6 mg/dL (8.4-10.2); CARBON DIOXIDE 35 mmol/L (22-30); CHLORIDE 98 mmol/L (98-107); GLUCOSE 186 mg/dL (75-110); POTASSIUM 4.7 mmol/L (3.6-5.0); TRIGLYCERIDES 116 mg/dL (<150)
[2020-04-26 06:32] LABS: DIRECT LDL 92 mg/dL (<100)
[2020-04-26] MEDS: INSULIN REG, HUMAN 100 UNIT/ML 3 ML VIAL (PYX) SUBCUT SCH ×4 (08:31→21:09)
[2020-04-26] MEDS: DOCUSATE SODIUM 100 MG CAPSULE PO SCH ×2 (09:08→17:01)
[2020-04-26] MEDS: CARVEDILOL 12.5 MG TABLET PO SCH ×2 (09:09→21:08)
[2020-04-26] MEDS: FINASTERIDE 5 MG TABLET PO SCH (09:11)
[2020-04-26] MEDS: AMLODIPINE BESYLATE 10 MG TABLET PO SCH (09:11)
[2020-04-26] MEDS: LISINOPRIL 10 MG TABLET PO SCH (09:13)
[2020-04-26] MEDS: MELOXICAM 15 MG TABLET PO SCH (09:13)
--- NOTE | 2020-04-26 11:24 | PDOC CONSULTATION ---
Consultation Consult Date: 04/26/20 Attending physician:: APRYL RAMÍREZ Provider Consulted: DEANNA JEFFRIES Consult reason:: Elevated troponin History of Present Illness Admission Date/PCP: 04/25/20 22:28 NELY MEDEROS History of Present Illness: ISAMAR ROBERSON is a 70 year old male 64-year-old male with the following active problems 1. Coronary disease 2. CABG 3. Morbid obesity 4. Dyslipidemia 5. Nicotine dependence-cigarettes Patient is a poor historian. He claims he came to the hospital due to back pain. He does not report any chest pain but he did endorse some difficulty breathing. He does not report any recent cardiac evaluation. He has mildly elevated troponin in the emergency room without chest pain. He has significant abdominal distention which I believe is chronic although patient is not able to shed much light on this. He continues to smoke and a pack of cigarettes lasts him approximately a month. Review of systems positive for dyspnea and back pain. Negative for chest pain. Full 11 review of systems was asked. Pertinent positives noted here and in the HPI all other systems are negative. No familial illnesses reported. Past Medical History Cardiac Medical History: Reports: Coronary Artery Disease, Myocardial Infarction - 35 YEARS, Hypertension Pulmonary Medical History: Denies: Asthma, Chronic Obstructive Pulmonary Disease (COPD), Sleep Apnea - Patient denies sleep apnea Neurological Medical History: Denies: Ischemic CVA, Seizures Endocrine Medical History: Reports: Diabetes Mellitus Type 2, Other - Morbid obesity Renal/ Medical History: Denies: Chronic Kidney Disease Malignancy Medical History: Reports: None GI Medical History: Reports: Gastroesophageal Reflux Disease, Other - Reports history of esophageal spasm Denies: Hepatitis, Hiatal Hernia Musculoskeltal Medical History: Reports: Other - Reports chronic neck and back pain. Charcot foot left side Skin Medical History: Reports: Other - Weeping lesions legs, chronic lymphedema, onychomycosis toes Psychiatric Medical History: Reports: Tobacco Dependency Denies: Alcohol Dependency, Depression, Substance Abuse Traumatic Medical History: Reports: None Hematology: Denies: Anemia, Sickle Cell Disease Infectious Medical History: Denies: Clostridium Difficile, Hepatitis B, Hepatitis C Past Surgical History Past Surgical History: Reports: Cholecystectomy, Coronary Artery Bypass Graft Denies: Pacemaker Social History Lives with: Spouse/Significant other Smoking Status: Current Every Day Smoker Electronic Cigarette use?: No Frequency of Alcohol Use: None Hx Recreational Drug Use: No Drugs: None Hx Prescription Drug Abuse: No - Advance Directive Resuscitation Status: Do Not Resuscitate Family History Family History: Reviewed & Not Pertinent Parental Family History Reviewed: Yes - No familial illnesses Children Family History Reviewed: NA Sibling(s) Family History Reviewed.: NA Medication/Allergy Home Medications: Amlodipine Besylate [Norvasc 10 mg Tablet] 10 mg PO DAILY 06/25/19 Baclofen [Baclofen 10 mg Tablet] 10 mg PO Q8 06/25/19 Benazepril HCl [Lotensin] 40 mg PO DAILY 06/25/19 Carvedilol [Coreg 25 mg Tablet] 25 mg PO Q12 06/25/19 Finasteride [Proscar 5 mg Tablet] 5 mg PO DAILY 06/25/19 Meloxicam [Mobic] 15 mg PO DAILY 06/25/19 Metformin HCl [Glucophage] 1,000 mg PO BID 06/25/19 Simvastatin [Zocor 20 mg Tablet] 20 mg PO QHS 06/25/19 Tamsulosin HCl [Flomax 0.4 mg Cap.sr] 0.4 mg PO DAILY 06/25/19 Tramadol HCl [Ultram] 100 mg PO TID 06/25/19 Duloxetine HCl [Cymbalta] 60 mg PO BID 04/26/20 Glipizide [Glucotrol 10 mg Tablet] 20 mg PO DAILY 04/26/20 Insulin NPH Human Isophane [Novolin N Flexpen] 30 unit SQ BID 04/26/20 Allergies/Adverse Reactions: iodine Allergy (Verified 03/17/18 11:05) Iodinated Contrast Media Adverse Reaction (Verified 04/26/20 00:10) Hives Review of Systems Constitutional: PRESENT: as per HPI Eyes: PRESENT: as per HPI Cardiovascular: ABSENT: as per HPI, chest pain, dyspnea on exertion, edema, orthropnea, palpitations, other Respiratory: PRESENT: dyspnea Gastrointestinal: PRESENT: other - Abdominal distention Neurological: ABSENT: abnormal gait, abnormal speech, confusion, dizziness, focal weakness, syncope Endocrine: ABSENT: as per HPI, cold intolerance, flushing, heat intolerance, menstrual abnormalities, polydipsia, polyphagia, polyuria, other Physical Exam Vital Signs: Temp Pulse Resp BP Pulse Ox 98.2 F 86 27 H 143/69 H 93 04/26/20 07:32 04/26/20 07:32 04/26/20 07:32 04/26/20 07:32 04/26/20 07:32 Intake & Output 04/25/20 04/26/20 04/27/20 06:59 06:59 06:59 Intake Total 0 Output Total 600 Balance -600 Weight 155.8 kg General appearance: PRESENT: no acute distress, cooperative, morbidly obese, well-developed, well-nourished Head exam: PRESENT: atraumatic, normocephalic Eye exam: PRESENT: conjunctiva pink, EOMI Mouth exam: PRESENT: moist Respiratory exam: PRESENT: crackles, symmetrical, unlabored Cardiovascular exam: PRESENT: RRR, +S1, +S2 Pulses: PRESENT: normal radial pulses GI/Abdominal exam: PRESENT: soft Rectal exam: PRESENT: deferred Neurological exam: PRESENT: alert, awake, oriented to person, oriented to place, oriented to time, oriented to situation Psychiatric exam: PRESENT: appropriate affect Skin exam: PRESENT: dry, intact, normal color Results Laboratory Results: 04/26/20 05:32 04/26/20 05:32 04/25/20 04/25/20 04/25/20 15:38 15:38 22:54 WBC 7.1 RBC 4.76 Hgb 13.9 Hct 41.9 MCV 88 MCH 29.3 MCHC 33.2 RDW 14.4 H Plt Count 191 Seg Neutrophils % 66.9 Sodium 137.8 Potassium 5.0 Chloride 99 Carbon Dioxide 34 H Anion Gap 5 BUN 25 H Creatinine 0.75 Est GFR ( Amer) > 60 Glucose 229 H Calcium 9.5 Magnesium Total Bilirubin 0.4 AST 12 L Alkaline Phosphatase 86 Total Protein 6.6 Albumin 3.9 Triglycerides Cholesterol LDL Cholesterol Direct VLDL Cholesterol HDL Cholesterol Urine Color YELLOW Urine Appearance CLEAR Urine pH 5.0 Ur Specific [place] 1.027 Urine Protein NEGATIVE Urine Glucose (UA) 50 H Urine Ketones NEGATIVE Urine Blood NEGATIVE Urine RBC (Auto) 1 04/26/20 04/26/20 05:32 05:32 WBC 7.4 RBC 4.63 Hgb 13.4 L Hct 40.4 MCV 87 MCH 28.9 MCHC 33.1 RDW 14.5 H Plt Count 177 Seg Neutrophils % 56.2 Sodium 138.6 Potassium 4.7 Chloride 98 Carbon Dioxide 35 H Anion Gap 6 BUN 22 H Creatinine 0.64 Est GFR ( Amer) > 60 Glucose 186 H Calcium 9.6 Magnesium 1.8 Total Bilirubin AST Alkaline Phosphatase Total Protein Albumin Triglycerides 116 Cholesterol 160.30 LDL Cholesterol Direct 92 VLDL Cholesterol 23.0 HDL Cholesterol 54 Urine Color Urine Appearance Urine pH Ur Specific [place] Urine Protein Urine Glucose (UA) Urine Ketones Urine Blood Urine RBC (Auto) 04/25/20 04/25/20 04/25/20 15:38 15:38 19:37 Creatine Kinase 52 L CK-MB (CK-2) 3.07 Troponin I 0.220 0.212 NT-Pro-B Natriuret Pep 04/25/20 04/26/20 23:34 05:32 Creatine Kinase CK-MB (CK-2) Troponin I 0.211 NT-Pro-B Natriuret Pep 412 H EKG Comments: Twelve-lead EKG 04/25/2020. Independently viewed by me. Sinus rhythm, 66 bpm, nonspecific IVCD, minimal ST depression in the lateral leads. Twelve-lead EKG 04/26/2020. Independently viewed by me. Sinus rhythm, 71 bpm, IVCD nonspecific, lateral leads minimal depression, QTC 396 ms Cardiac troponin 0.22 (04/25/2020-1538) 0.212 (04/25/2020-1937) 0.211 (04/25/2020-2334) Chest x-ray 04/25/2020. Low lung volumes no acute pulmonary consolidation Cardiomegaly Impressions: Chest X-Ray 04/25/20 15:11 IMPRESSION: 1. Low lung volumes limits the examination. No acute pulmonary consolidation. 2. Cardiomegaly. Assessment & Plan - Diagnosis (1) Acute respiratory failure with hypoxia Is this a current diagnosis for this admission?: Yes Plan: Patient has difficult physical exam on account of morbid obesity He is clearly has diminished lung sounds with crackles at the lung bases and significant abdominal distention on account possibly of ascites or abdominal obesity I suspect that he may be having mild decompensated congestive heart failure and the troponins are elevated on account of this Would recommend gentle diuresis (2) Coronary artery disease Qualifiers: Coronary Disease-Associated Artery/Lesion type: [place] artery Associated angina: with unspecified angina Is this a current diagnosis for this admission?: Yes Plan: Continue lisinopril 10 mg daily Continue carvedilol 12.5 mg twice daily Mildly elevated troponins without a clear trend No active ischemic chest pains We will get transthoracic echocardiogram to evaluate cardiac structure and function. Also if he has had recent cardiac work-up with his operations associate it may be reasonable to get those records. His presentation does not suggest ongoing myocardial ischemia given absence chest pain and flat troponin profile and no evolving ST-T changes on the EKG. (3) Hypercholesterolemia Is this a current diagnosis for this admission?: Yes Plan: Atorvastatin 40 mg daily to be continued (4) Hypertension Qualifiers: Hypertension type: essential hypertension Qualified Code(s): I10 - Essential (primary) hypertension Is this a current diagnosis for this admission?: Yes Plan: Continue lisinopril 10 mg daily Continue carvedilol 12.5 mg twice daily (5) NSTEMI (non-ST elevated myocardial infarction) Is this a current diagnosis for this admission?: Yes Plan: Mildly elevated troponin. Flat troponin profile EKG without changes of myocardial ischemia Likely type II myocardial infarction on account of strain on account of congestive heart failure.
[2020-04-26] MEDS: TAMSULOSIN HCL 0.4 MG CAP.SR.24H PO SCH (17:02)
--- NOTE | 2020-04-26 18:56 | PDOC PROGRESS REPORT ---
Subjective Progress Note for:: 04/26/20 Subjective:: Patient was admitted overnight. He states his problem is back pain and denies any significant abdominal pain. He was seen by Dr. Juárez today. He thinks that he probably has mild decompensated CHF with the elevated troponins likely secondary to that. He plans to get a TTE Reason For Visit: ELEVATED TROPONIN,CORONARY ARTERY DISEASE WITH Physical Exam Vital Signs: Temp Pulse Resp BP Pulse Ox 98.2 F 86 19 164/77 H 97 04/26/20 15:13 04/26/20 15:13 04/26/20 15:13 04/26/20 15:13 04/26/20 15:13 Intake & Output 04/25/20 04/26/20 04/27/20 06:59 06:59 06:59 Intake Total 0 1185 Output Total 600 2100 Balance -600 -915 Weight 155.8 kg General appearance: PRESENT: no acute distress, morbidly obese, well-developed, well-nourished Head exam: PRESENT: atraumatic, normocephalic Eye exam: PRESENT: conjunctiva pink, EOMI, PERRLA. ABSENT: scleral icterus Ear exam: PRESENT: normal external ear exam Mouth exam: PRESENT: moist, tongue midline Neck exam: ABSENT: carotid bruit, JVD, lymphadenopathy, thyromegaly Respiratory exam: PRESENT: clear to auscultation carlos, unlabored. ABSENT: rales, rhonchi, wheezes Cardiovascular exam: PRESENT: RRR. ABSENT: diastolic murmur, rubs, systolic murmur Pulses: PRESENT: normal dorsalis pedis pul Vascular exam: PRESENT: normal capillary refill GI/Abdominal exam: PRESENT: hypoactive bowel sounds, normal bowel sounds, soft, other - hernia, morbidly obesew. ABSENT: distended, guarding, mass, organolmegaly, rebound, tenderness Rectal exam: PRESENT: deferred Extremities exam: PRESENT: full ROM. ABSENT: calf tenderness, clubbing, pedal edema Neurological exam: PRESENT: alert, awake, oriented to person, oriented to place, oriented to time, oriented to situation, CN II-XII grossly intact. ABSENT: motor sensory deficit Psychiatric exam: PRESENT: appropriate affect, normal mood. ABSENT: homicidal ideation, suicidal ideation Skin exam: PRESENT: dry, intact, warm. ABSENT: cyanosis, rash Results Laboratory Results: 04/26/20 05:32 04/26/20 05:32 04/25/20 04/26/20 04/26/20 22:54 05:32 05:32 WBC 7.4 RBC 4.63 Hgb 13.4 L Hct 40.4 MCV 87 MCH 28.9 MCHC 33.1 RDW 14.5 H Plt Count 177 Seg Neutrophils % 56.2 Sodium 138.6 Potassium 4.7 Chloride 98 Carbon Dioxide 35 H Anion Gap 6 BUN 22 H Creatinine 0.64 Est GFR ( Amer) > 60 Glucose 186 H Calcium 9.6 Magnesium 1.8 Triglycerides 116 Cholesterol 160.30 LDL Cholesterol Direct 92 VLDL Cholesterol 23.0 HDL Cholesterol 54 Urine Color YELLOW Urine Appearance CLEAR Urine pH 5.0 Ur Specific [place] 1.027 Urine Protein NEGATIVE Urine Glucose (UA) 50 H Urine Ketones NEGATIVE Urine Blood NEGATIVE Urine RBC (Auto) 1 04/25/20 04/25/20 04/25/20 15:38 15:38 19:37 Creatine Kinase 52 L CK-MB (CK-2) 3.07 Troponin I 0.220 0.212 NT-Pro-B Natriuret Pep 04/25/20 04/26/20 23:34 05:32 Creatine Kinase CK-MB (CK-2) Troponin I 0.211 NT-Pro-B Natriuret Pep 412 H Impressions: Chest X-Ray 04/25/20 15:11 IMPRESSION: 1. Low lung volumes limits the examination. No acute pulmonary consolidation. 2. Cardiomegaly. Assessment and Plan - Diagnosis (1) Acute respiratory failure with hypoxia Is this a current diagnosis for this admission?: Yes Plan: The patient's main complaint is shortness of breath with exertion. He is not prescribed oxygen at home but they do have oxygen at home and he has been wearing it for several weeks. He does not report a history of COPD. He does have his cardiac history. Chest x-ray did not suggest acute heart failure. His primary complaint for coming to the hospital was the shortness of breath and he feels that is related to the constant back pain. He does have an elevated troponin and he is being worked up for acute coronary syndrome. Please see Cardiology consult for full details (2) Back pain Qualifiers: Back pain location: back pain in unspecified location Chronicity: chronic Back pain laterality: bilateral Qualified Code(s): M54.9 - Dorsalgia, unspecified; G89.29 - Other chronic pain Is this a current diagnosis for this admission?: Yes (3) Hyperglycemia due to diabetes mellitus Is this a current diagnosis for this admission?: Yes Plan: He has established with an elevator builder. He states that the medication that she most recently tried caused him to gain a lot of weight. He is on metformin at home. Continue body scale (4) Morbid obesity with BMI of 60.0-69.9, adult Is this a current diagnosis for this admission?: Yes Plan: The patient's BMI of 62.8 is certainly not conducive to cardio level exercise. He certainly would benefit from more aggressive diabetes control and expanding his diabetic regimen. He really needs to start with very aggressive dietary management at this point. He likely has underlying obesity hypoventilation but this should not present as an acute shortness of breath. Will monitor closely. He needs to seriously lose weight (5) NSTEMI (non-ST elevated myocardial infarction) Is this a current diagnosis for this admission?: Yes Plan: Non-STEMI likely with flat troponin. Further management as per cardiology - Time Time Spent with patient: 15-24 minutes Medications reviewed and adjusted accordingly: Yes Anticipated Discharge Disposition: Home, Self Care Anticipated Discharge Timeframe: within 48 hours
[2020-04-26] MEDS: ATORVASTATIN CALCIUM 40 MG TABLET PO SCH (21:09)
[2020-04-26] MEDS: ASPIRIN 81 MG TABLET, CHEWABLE PO SCH (21:09)
[2020-04-27] MEDS: PANTOPRAZOLE SODIUM 40 MG TABLET.DR PO SCH (05:39)
[2020-04-27] MEDS: HEPARIN SOD (PORCINE) 5,000 UNIT/ML 1 ML VIAL SUBCUT SCH ×3 (05:39→21:49)
[2020-04-27] MEDS: BACLOFEN 10 MG TABLET PO SCH ×3 (05:39→21:49)
[2020-04-27] MEDS: TRAMADOL HCL 50 MG TABLET PO SCH ×3 (05:39→21:49)
[2020-04-27] MEDS: INSULIN REG, HUMAN 100 UNIT/ML 3 ML VIAL (PYX) SUBCUT SCH ×4 (07:51→21:50)
[2020-04-27] MEDS: LISINOPRIL 10 MG TABLET PO SCH (09:16)
[2020-04-27] MEDS: FINASTERIDE 5 MG TABLET PO SCH (09:17)
[2020-04-27] MEDS: AMLODIPINE BESYLATE 10 MG TABLET PO SCH (09:17)
[2020-04-27] MEDS: MELOXICAM 15 MG TABLET PO SCH (09:17)
[2020-04-27] MEDS: DOCUSATE SODIUM 100 MG CAPSULE PO SCH ×2 (09:18→18:36)
[2020-04-27] MEDS: CARVEDILOL 12.5 MG TABLET PO SCH ×3 (09:22→21:49)
[2020-04-27] MEDS: GLIPIZIDE 10 MG TABLET PO SCH (09:48)
[2020-04-27] MEDS ORDERED: (PENDING PHARMACY ID) (Benazepril Hcl [Lotensin] 40 MG) PO SCH (10:00)
--- NOTE | 2020-04-27 11:28 | PDOC PROGRESS REPORT ---
Subjective Progress Note for:: 04/27/20 Subjective:: 70 year old male with super morbid obesity (BMI 63) with a history of myocardial infarction and bypass surgery some 30+ years ago. He recently saw his clockmaker apprentice and reports a good visit with "normal "testing. He is not normally on oxygen at home. He does have oxygen at home for some reason. He states that he started needing it several days ago when he noted increasing shortness of breath with physical activity. The shortness of breath seem to get worse with less activity. At home he has been fairly immobile and reports that the shortness of breath has been detrimental to his activities of daily living. From history it seems that he is not very active at home for multiple reasons. He does have his morbid obesity, diabetes, heart disease, hypertension, hyperlipidemia as well as chronic venous insufficiency with cobblestone skin and serous weeping. He has a Charcot foot on the left. He states that his heels get dry and crack. He reports that this happens sometimes on the toes as well. He has diffuse onychomycosis. He denies sleep apnea but likely has morbid obesity hypoventilation. On exam his troponin was 0.220 with the next troponin 0 0.212 on a third troponin pending. Twelve-lead EKG shows possible ST changes laterally. Chest x-ray suggests cardiomegaly. He states that he did have an echocardiogram recently with his clockmaker apprentice and we will attempt to obtain those records as well as a recent EKG. He actually states that the original problem is his chronic back pain. He reports having had multiple MRI studies. He cannot lay back because of his back pain. He did not report breathing issues with change in position (orthopnea). He has a history of esophageal spasm. His history specifically related to his myocardial infarction and bypass revealed a very focused discomfort in the left parasternal area. He is not having that discomfort at this point. He has been afebrile and is not aware of any COVID exposure. The patient will be admitted for serial troponins. The emergency room physician did in fact discussed the case with cardiology and they will be following the patient tomorrow. At this point I do not appreciate any significant heart failure and the patient is not on furosemide at home. He has not tachycardic at this point. His carvedilol dosing was 25 mg once daily as well as benazepril 40 mg daily and amlodipine 10 mg daily. Unfortunately he continues to smoke. He states a pack of cigarettes usually lasts him 4 weeks. He reports that the latest medication that his executive cyber leader tried for his diabetes made him gain weight. He is only listed is taking metformin 1 g twice a day in the medications in his chart. He will have before meals and at bedtime Accu-Cheks with sliding scale coverage. He will be admitted to telemetry. He will have serial troponins. I will repeat his EKG in the morning. For his heart disease he is on an adequate statin therapy especially with his underlying diabetes. I have ordered atorvastatin 40 mg as well as an aspirin. We are continuing his SHARLA inhibitor with lisinopril 40 mg daily as we do not carry benazepril. I have changed his carvedilol to 12.5 mg twice daily as it is not a 24-hour medication. 04/27/2020-patient is comfortable in the bed communicating well. Echocardiogram will be done today. Denies any chest pains. Expressing desire to go home tomorrow. Reason For Visit: ELEVATED TROPONIN,CORONARY ARTERY DISEASE WITH Physical Exam Vital Signs: Temp Pulse Resp BP Pulse Ox 97.7 F 72 23 H 145/69 H 99 04/27/20 08:22 04/27/20 07:48 04/27/20 07:48 04/27/20 07:48 04/27/20 07:48 Intake & Output 04/26/20 04/27/20 04/28/20 06:59 06:59 06:59 Intake Total 0 1185 Output Total 600 2600 Balance -600 -1415 Weight 155.8 kg 155.8 kg General appearance: PRESENT: no acute distress, morbidly obese Head exam: PRESENT: atraumatic Eye exam: PRESENT: PERRLA Mouth exam: PRESENT: moist, tongue midline Teeth exam: PRESENT: poor dentation Neck exam: ABSENT: carotid bruit, JVD, lymphadenopathy, thyromegaly Respiratory exam: PRESENT: decreased breath sounds Cardiovascular exam: PRESENT: RRR. ABSENT: diastolic murmur, rubs, systolic murmur GI/Abdominal exam: PRESENT: normal bowel sounds, soft. ABSENT: distended, guarding, mass, organolmegaly, rebound, tenderness Rectal exam: PRESENT: deferred Extremities exam: PRESENT: full ROM. ABSENT: calf tenderness, clubbing, pedal edema Neurological exam: PRESENT: alert, awake, oriented to person, oriented to place, oriented to time, oriented to situation, CN II-XII grossly intact. ABSENT: motor sensory deficit Psychiatric exam: PRESENT: appropriate affect, normal mood. ABSENT: homicidal ideation, suicidal ideation Results Laboratory Results: 04/26/20 05:32 04/26/20 05:32 04/25/20 04/25/20 04/25/20 15:38 15:38 19:37 Creatine Kinase 52 L CK-MB (CK-2) 3.07 Troponin I 0.220 0.212 NT-Pro-B Natriuret Pep 04/25/20 04/26/20 23:34 05:32 Creatine Kinase CK-MB (CK-2) Troponin I 0.211 NT-Pro-B Natriuret Pep 412 H Impressions: Chest X-Ray 04/25/20 15:11 IMPRESSION: 1. Low lung volumes limits the examination. No acute pulmonary consolidation. 2. Cardiomegaly. Assessment and Plan - Diagnosis (1) Acute respiratory failure with hypoxia Is this a current diagnosis for this admission?: Yes Plan: The patient's main complaint is shortness of breath with exertion. He is not prescribed oxygen at home but they do have oxygen at home and he has been wearing it for several weeks. He does not report a history of COPD. He does have his cardiac history. Chest x-ray did not suggest acute heart failure. His primary complaint for coming to the hospital was the shortness of breath and he feels that is related to the constant back pain. He does have an elevated troponin and he is being worked up for acute coronary syndrome. Please see Cardiology consult for full details 04/27/2020-patient admitted with acute on chronic respiratory failure with hypoxia. Pulse ox today's 93% on 2 L. To check for home oxygen requirements prior to discharge. (2) Back pain Qualifiers: Back pain location: back pain in unspecified location Chronicity: chronic Back pain laterality: bilateral Qualified Code(s): M54.9 - Dorsalgia, unspecified; G89.29 - Other chronic pain Is this a current diagnosis for this admission?: Yes Plan: Back pain is actually multiple areas. He is going to see his third chronic pain management physician. He reports that they have done multiple MRIs and have not seen "anything". We will continue his tramadol, meloxicam and baclofen. There will be as needed IV morphine available. His body mass index of 62 is certainly putting significant pressure on the back. 04/27/2020-unable to do the MRI of the back for the back pain because of morbid obesity and the patient is unable to lay down flat. (3) Coronary artery disease Qualifiers: Coronary Disease-Associated Artery/Lesion type: [place] artery Associated angina: with unspecified angina Is this a current diagnosis for this admission?: No Plan: It is difficult to tell if he really is experiencing angina. He certainly d escribes more of a back pain but the shortness of breath is new. The troponin elevation is certainly concerning as is the nonspecific EKG. As noted I have increased his statin therapy to atorvastatin 40 mg. We will continue the SHARLA inhibitor. I have changed the carvedilol to 12.5 mg twice daily as it is not designed as a 24-hour medication. We will continue his Norvasc although this can increase lower extremity edema. I have also added aspirin therapy with as needed sublingual nitroglycerin. Cardiology will be seeing the patient in the morning. His morbid obesity certainly puts significant strain on not only has heart but his respiratory status and musculoskeletal system as well. 04/27/2020-patient has history of bypass 40 years ago, cardiology consult was done Dr. Crockett impression is slightly elevated troponins most likely secondary to CHF exacerbation. (4) Dyspnea on exertion Is this a current diagnosis for this admission?: Yes Plan: He reports that the dyspnea on exertion that he has been experiencing over the last week or 2 is definitely different from his baseline. There is no overt failure. I am holding on dosing any furosemide at this point. (5) Morbid obesity with BMI of 60.0-69.9, adult Is this a current diagnosis for this admission?: Yes Plan: The patient's BMI of 62.8 is certainly not conducive to cardio level exercise. He certainly would benefit from more aggressive diabetes control and expanding his diabetic regimen. He really needs to start with very aggressive dietary management at this point. He likely has underlying obesity hypoventilation but this should not present as an acute shortness of breath. Will monitor closely. He needs to seriously lose weight (6) Hyperglycemia due to diabetes mellitus Is this a current diagnosis for this admission?: No Plan: He has established with an executive cyber leader. He states that the medication that she most recently tried caused him to gain a lot of weight. He is on metformin at home. Continue body scale - Time Anticipated Discharge Disposition: Home with Home Health Anticipated Discharge Timeframe: within 72 hours
[2020-04-27] MEDS: DULOXETINE HCL 30 MG CAPSULE.DR PO SCH ×2 (12:31→21:49)
[2020-04-27] MEDS: BENAZEPRIL HCL 20 MG TABLET PO SCH (12:36)
[2020-04-27] MEDS: TAMSULOSIN HCL 0.4 MG CAP.SR.24H PO SCH (18:37)
[2020-04-27] MEDS: ASPIRIN 81 MG TABLET, CHEWABLE PO SCH (21:49)
[2020-04-27] MEDS: ATORVASTATIN CALCIUM 40 MG TABLET PO SCH (21:50)
[2020-04-27] MEDS ORDERED: SIMVASTATIN 10 MG TABLET PO SCH (22:00)
[2020-04-28] MEDS: ACETAMINOPHEN 325 MG TABLET PO PRN (00:37)
--- NOTE | 2020-04-28 02:22 | EKG REPORT ---
SEVERITY:- ABNORMAL ECG - SINUS RHYTHM NONSPECIFIC INTRAVENTRICULAR CONDUCTION DELAY MINIMAL ST DEPRESSION, LATERAL LEADS : Confirmed by: Bon Juárez MD 28-Apr-2020 02:21:23
[2020-04-28] MEDS: HEPARIN SOD (PORCINE) 5,000 UNIT/ML 1 ML VIAL SUBCUT SCH ×3 (05:33→21:33)
[2020-04-28] MEDS: PANTOPRAZOLE SODIUM 40 MG TABLET.DR PO SCH (05:33)
[2020-04-28] MEDS: TRAMADOL HCL 50 MG TABLET PO SCH ×3 (05:33→21:32)
[2020-04-28] MEDS: BACLOFEN 10 MG TABLET PO SCH ×3 (05:33→21:32)
[2020-04-28 05:56] LABS: ABSOLUTE BASOPHILS # (AUTO) 0.1 10^3/uL (0.0-0.2); ABSOLUTE EOSINOPHILS # (AUTO) 0.1 10^3/uL (0.0-0.6); ABSOLUTE LYMPHOCYTES (AUTO) 2.3 10^3/uL (0.5-4.7); ABSOLUTE MONOCYTES (AUTO) 0.6 10^3/uL (0.1-1.4); ABSOLUTE NEUT (AUTO) 2.9 10^3/uL (1.7-8.2); EOSINOPHILS % (AUTO) 2.4 % (0-6); HEMATOCRIT 41.2 % (37.9-51.0); HEMOGLOBIN 13.9 g/dL (13.5-17.0); LYMPHOCYTES % (AUTO) 37.9 % (13-45); MEAN CORPUSCULAR HEMOGLOBIN 29.5 pg (27.0-33.4); MEAN CORPUSCULAR HGB CONC 33.8 g/dL (32.0-36.0); MEAN CORPUSCULAR VOLUME 87 fl (80-97); MONOCYTES % (AUTO) 10.5 % (3-13); PLATELET COUNT 153 10^3/uL (150-450); RED BLOOD COUNT 4.73 10^6/uL (4.35-5.55); RED CELL DISTRIBUTION WIDTH 14.2 % (11.5-14.0); SEGMENTED NEUTROPHILS % (AUTO) 48.2 % (42-78); TOTAL CELLS COUNTED % (AUTO) 100 %
[2020-04-28 06:26] LABS: ALBUMIN 3.6 g/dL (3.5-5.0); ALKALINE PHOSPHATASE 61 U/L (38-126); ANION GAP 6 (5-19); ASPARTATE AMINO TRANSFERASE 15 U/L (17-59); BILIRUBIN,DIRECT 0.5 mg/dL (0.0-0.4); BILIRUBIN,TOTAL 0.6 mg/dL (0.2-1.3); BLOOD UREA NITROGEN 21 mg/dL (7-20); CALCIUM 9.1 mg/dL (8.4-10.2); CARBON DIOXIDE 36 mmol/L (22-30); CHLORIDE 96 mmol/L (98-107); GLUCOSE 184 mg/dL (75-110); POTASSIUM 4.9 mmol/L (3.6-5.0); TOTAL PROTEIN 6.3 g/dL (6.3-8.2)
[2020-04-28] MEDS: INSULIN REG, HUMAN 100 UNIT/ML 3 ML VIAL (PYX) SUBCUT SCH ×4 (07:38→21:32)
[2020-04-28] MEDS: DULOXETINE HCL 30 MG CAPSULE.DR PO SCH ×2 (10:07→21:32)
[2020-04-28] MEDS: AMLODIPINE BESYLATE 10 MG TABLET PO SCH (10:07)
[2020-04-28] MEDS: LISINOPRIL 10 MG TABLET PO SCH (10:07)
[2020-04-28] MEDS: DOCUSATE SODIUM 100 MG CAPSULE PO SCH ×2 (10:08→17:15)
[2020-04-28] MEDS: FINASTERIDE 5 MG TABLET PO SCH (10:08)
[2020-04-28] MEDS: MELOXICAM 15 MG TABLET PO SCH (10:08)
[2020-04-28] MEDS: CARVEDILOL 12.5 MG TABLET PO SCH ×2 (10:08→21:31)
[2020-04-28] MEDS: BENAZEPRIL HCL 20 MG TABLET PO SCH (10:09)
[2020-04-28] MEDS: GLIPIZIDE 10 MG TABLET PO SCH (10:09)
--- NOTE | 2020-04-28 14:14 | PDOC PROGRESS REPORT ---
Subjective Progress Note for:: 04/28/20 Subjective:: Patient reports feeling much better today. He is in a chair as opposed to bed and his back pain is better. He reports improvement in his respiratory distress. Both lower extremities continue edematous with weeping ulcers. Reason For Visit: ELEVATED TROPONIN,CORONARY ARTERY DISEASE WITH Physical Exam Vital Signs: Temp Pulse Resp BP Pulse Ox 98.0 F 77 18 145/68 H 98 04/28/20 11:11 04/28/20 11:11 04/28/20 11:11 04/28/20 11:11 04/28/20 11:11 Intake & Output 04/27/20 04/28/20 04/29/20 06:59 06:59 06:59 Intake Total 1185 1480 720 Output Total 2600 0 Balance -1415 1480 720 Weight 155.8 kg 155.8 kg General appearance: PRESENT: cooperative, morbidly obese, well-developed, well- nourished Head exam: PRESENT: atraumatic, normocephalic Eye exam: PRESENT: EOMI Mouth exam: PRESENT: moist Respiratory exam: PRESENT: decreased breath sounds, symmetrical, unlabored Cardiovascular exam: PRESENT: RRR, +S1, +S2 Pulses: PRESENT: normal radial pulses GI/Abdominal exam: PRESENT: soft, other - Excessive abdominal pannus and obesity. Rectal exam: PRESENT: deferred Neurological exam: PRESENT: alert, awake, oriented to person, oriented to place, oriented to time, oriented to situation Skin exam: PRESENT: dry, other - Weeping ulcers on lower extremity. They are weeping ulcers on lower extremity. Results Laboratory Results: 04/28/20 04:54 04/28/20 04:54 04/28/20 04/28/20 04:54 04:54 WBC 6.0 RBC 4.73 Hgb 13.9 Hct 41.2 MCV 87 MCH 29.5 MCHC 33.8 RDW 14.2 H Plt Count 153 Seg Neutrophils % 48.2 Sodium 137.6 Potassium 4.9 Chloride 96 L Carbon Dioxide 36 H Anion Gap 6 BUN 21 H Creatinine 0.67 Est GFR ( Amer) > 60 Glucose 184 H Calcium 9.1 Magnesium 2.0 Total Bilirubin 0.6 AST 15 L Alkaline Phosphatase 61 Total Protein 6.3 Albumin 3.6 09/11/20 09/11/20 09/11/20 15:38 15:38 19:37 Creatine Kinase 52 L CK-MB (CK-2) 3.07 Troponin I 0.220 0.212 NT-Pro-B Natriuret Pep 04/25/20 04/26/20 23:34 05:32 Creatine Kinase CK-MB (CK-2) Troponin I 0.211 NT-Pro-B Natriuret Pep 412 H Impressions: Chest X-Ray 04/25/20 15:11 IMPRESSION: 1. Low lung volumes limits the examination. No acute pulmonary consolidation. 2. Cardiomegaly. Assessment & Plan - Diagnosis (1) Acute respiratory failure with hypoxia Is this a current diagnosis for this admission?: Yes Plan: Symptom suggestive of decompensated congestive heart failure We will review echocardiogram Continue diuresis. Patient reports having had a established home inspector in the past. You may be reasonable to pursue those records. Patient reports having had an echocardiogram done last year. (2) Coronary artery disease Qualifiers: Coronary Disease-Associated Artery/Lesion type: [place] artery Associated angina: with unspecified angina Is this a current diagnosis for this admission?: Yes Plan: No ongoing chest pain. Mildly elevated troponins without active chest pain. This is probably due to congestive heart failure and not acute coronary syndrome. (3) Hypercholesterolemia Is this a current diagnosis for this admission?: Yes Plan: Continue statins. (4) Hypertension Qualifiers: Hypertension type: essential hypertension Qualified Code(s): I10 - Essential (primary) hypertension Is this a current diagnosis for this admission?: Yes Plan: Continue home regimen for systemic hypertension Watch blood pressure as we diurese. (5) NSTEMI (non-ST elevated myocardial infarction) Is this a current diagnosis for this admission?: Yes Plan: Elevated troponins in the setting of congestive heart failure Type II myocardial ischemia due to strain rather than acute coronary syndrome. - Notes Notes: Patient is on 2 different SHARLA inhibitors. This needs to be clarified. Patient should ideally be on only one SHARLA inhibitor. Continue SHARLA inhibitor-we will have to clarify with patient Continue atorvastatin 40 mg daily Continue amlodipine 10 mg daily Continue carvedilol 25 mg twice daily
[2020-04-28] MEDS: TAMSULOSIN HCL 0.4 MG CAP.SR.24H PO SCH (17:15)
--- NOTE | 2020-04-28 17:57 | PDOC PROGRESS REPORT ---
Subjective Progress Note for:: 04/28/20 Subjective:: 70 year old male with super morbid obesity (BMI 63) with a history of myocardial infarction and bypass surgery some 30+ years ago. He recently saw his assembly supervisor and reports a good visit with "normal "testing. He is not normally on oxygen at home. He does have oxygen at home for some reason. He states that he started needing it several days ago when he noted increasing shortness of breath with physical activity. The shortness of breath seem to get worse with less activity. At home he has been fairly immobile and reports that the shortness of breath has been detrimental to his activities of daily living. From history it seems that he is not very active at home for multiple reasons. He does have his morbid obesity, diabetes, heart disease, hypertension, hyperlipidemia as well as chronic venous insufficiency with cobblestone skin and serous weeping. He has a Charcot foot on the left. He states that his heels get dry and crack. He reports that this happens sometimes on the toes as well. He has diffuse onychomycosis. He denies sleep apnea but likely has morbid obesity hypoventilation. On exam his troponin was 0.220 with the next troponin 0 0.212 on a third troponin pending. Twelve-lead EKG shows possible ST changes laterally. Chest x-ray suggests cardiomegaly. He states that he did have an echocardiogram recently with his assembly supervisor and we will attempt to obtain those records as well as a recent EKG. He actually states that the original problem is his chronic back pain. He reports having had multiple MRI studies. He cannot lay back because of his back pain. He did not report breathing issues with change in position (orthopnea). He has a history of esophageal spasm. His history specifically related to his myocardial infarction and bypass revealed a very focused discomfort in the left parasternal area. He is not having that discomfort at this point. He has been afebrile and is not aware of any COVID exposure. The patient will be admitted for serial troponins. The emergency room physician did in fact discussed the case with cardiology and they will be following the patient tomorrow. At this point I do not appreciate any significant heart failure and the patient is not on furosemide at home. He has not tachycardic at this point. His carvedilol dosing was 25 mg once daily as well as benazepril 40 mg daily and amlodipine 10 mg daily. Unfortunately he continues to smoke. He states a pack of cigarettes usually lasts him 4 weeks. He reports that the latest medication that his fish trapper tried for his diabetes made him gain weight. He is only listed is taking metformin 1 g twice a day in the medications in his chart. He will have before meals and at bedtime Accu-Cheks with sliding scale coverage. He will be admitted to telemetry. He will have serial troponins. I will repeat his EKG in the morning. For his heart disease he is on an adequate statin therapy especially with his underlying diabetes. I have ordered atorvastatin 40 mg as well as an aspirin. We are continuing his SHARLA inhibitor with lisinopril 40 mg daily as we do not carry benazepril. I have changed his carvedilol to 12.5 mg twice daily as it is not a 24-hour medication. 04/27/2020-patient is comfortable in the bed communicating well. Echocardiogram will be done today. Denies any chest pains. Expressing desire to go home tomorrow. 04/28/20-patient is comfortable in the chair communicating well. is at bedside. She is asking about home oxygen. We did a home oxygen assessment with minimal activity pulse ox dropping to 85% on room air. He does qualify for home oxygen. No other complaints. Cardiology consult was done. Echocardiogram is pending at this time. Reason For Visit: ELEVATED TROPONIN,CORONARY ARTERY DISEASE WITH Physical Exam Vital Signs: Temp Pulse Resp BP Pulse Ox 98.5 F 58 L 18 149/61 H 99 04/28/20 16:16 04/28/20 16:16 04/28/20 16:16 04/28/20 16:16 04/28/20 16:16 Intake & Output 04/27/20 04/28/20 04/29/20 06:59 06:59 06:59 Intake Total 1185 1480 720 Output Total 2600 0 Balance -1415 1480 720 Weight 155.8 kg 155.8 kg General appearance: PRESENT: no acute distress, morbidly obese Head exam: PRESENT: atraumatic Eye exam: PRESENT: PERRLA Mouth exam: PRESENT: moist, tongue midline Teeth exam: PRESENT: poor dentation Neck exam: ABSENT: carotid bruit, JVD, lymphadenopathy, thyromegaly Respiratory exam: PRESENT: decreased breath sounds Cardiovascular exam: PRESENT: RRR. ABSENT: diastolic murmur, rubs, systolic murmur GI/Abdominal exam: PRESENT: normal bowel sounds, soft. ABSENT: distended, guarding, mass, organolmegaly, rebound, tenderness Rectal exam: PRESENT: deferred Extremities exam: PRESENT: full ROM. ABSENT: calf tenderness, clubbing, pedal edema Neurological exam: PRESENT: alert, awake, oriented to person, oriented to place, oriented to time, oriented to situation, CN II-XII grossly intact. ABSENT: motor sensory deficit Psychiatric exam: PRESENT: appropriate affect, normal mood. ABSENT: homicidal ideation, suicidal ideation Results Laboratory Results: 04/28/20 04:54 04/28/20 04:54 04/28/20 04/28/20 04:54 04:54 WBC 6.0 RBC 4.73 Hgb 13.9 Hct 41.2 MCV 87 MCH 29.5 MCHC 33.8 RDW 14.2 H Plt Count 153 Seg Neutrophils % 48.2 Sodium 137.6 Potassium 4.9 Chloride 96 L Carbon Dioxide 36 H Anion Gap 6 BUN 21 H Creatinine 0.67 Est GFR ( Amer) > 60 Glucose 184 H Calcium 9.1 Magnesium 2.0 Total Bilirubin 0.6 AST 15 L Alkaline Phosphatase 61 Total Protein 6.3 Albumin 3.6 04/25/20 04/25/20 04/25/20 15:38 15:38 19:37 Creatine Kinase 52 L CK-MB (CK-2) 3.07 Troponin I 0.220 0.212 NT-Pro-B Natriuret Pep 04/25/20 04/26/20 23:34 05:32 Creatine Kinase CK-MB (CK-2) Troponin I 0.211 NT-Pro-B Natriuret Pep 412 H Impressions: Chest X-Ray 04/25/20 15:11 IMPRESSION: 1. Low lung volumes limits the examination. No acute pulmonary consolidation. 2. Cardiomegaly. Assessment and Plan - Diagnosis (1) Acute respiratory failure with hypoxia Is this a current diagnosis for this admission?: Yes Plan: The patient's main complaint is shortness of breath with exertion. He is not prescribed oxygen at home but they do have oxygen at home and he has been wearing it for several weeks. He does not report a history of COPD. He does have his cardiac history. Chest x-ray did not suggest acute heart failure. His primary complaint for coming to the hospital was the shortness of breath and he feels that is related to the constant back pain. He does have an elevated troponin and he is being worked up for acute coronary syndrome. Please see Cardiology consult for full details 04/27/2020-patient admitted with acute on chronic respiratory failure with hypoxia. Pulse ox today's 93% on 2 L. To check for home oxygen requirements prior to discharge. 04/28/2020-patient admitted with acute on chronic respiratory failure with hyp oxia. He did qualify for home oxygen. Pulse ox dropped to 85% with minimal activity with 2 L of oxygen supplementation pulse ox is improved to upper 90s. (2) Back pain Qualifiers: Back pain location: back pain in unspecified location Chronicity: chronic Back pain laterality: bilateral Qualified Code(s): M54.9 - Dorsalgia, unspecified; G89.29 - Other chronic pain Is this a current diagnosis for this admission?: Yes Plan: Back pain is actually multiple areas. He is going to see his third chronic pain management physician. He reports that they have done multiple MRIs and have not seen "anything". We will continue his tramadol, meloxicam and baclofen. There will be as needed IV morphine available. His body mass index of 62 is certainly putting significant pressure on the back. 04/27/2020-unable to do the MRI of the back for the back pain because of morbid obesity and the patient is unable to lay down flat. (3) Coronary artery disease Qualifiers: Coronary Disease-Associated Artery/Lesion type: [place] artery Associated angina: with unspecified angina Is this a current diagnosis for this admission?: Yes Plan: It is difficult to tell if he really is experiencing angina. He certainly describes more of a back pain but the shortness of breath is new. The troponin elevation is certainly concerning as is the nonspecific EKG. As noted I have increased his statin therapy to atorvastatin 40 mg. We will continue the SHARLA inhibitor. I have changed the carvedilol to 12.5 mg twice daily as it is not designed as a 24-hour medication. We will continue his Norvasc although this can increase lower extremity edema. I have also added aspirin therapy with as needed sublingual nitroglycerin. Cardiology will be seeing the patient in the morning. His morbid obesity certainly puts significant strain on not only has heart but his respiratory status and musculoskeletal system as well. 04/27/2020-patient has history of bypass 40 years ago, cardiology consult was done Dr. Crockett impression is slightly elevated troponins most likely secondary to CHF exacerbation. 03/28/20-cardiology consult was done no acute intervention recommended. Echocardiogram report is pending at this time. (4) Dyspnea on exertion Is this a current diagnosis for this admission?: Yes Plan: He reports that the dyspnea on exertion that he has been experiencing over the last week or 2 is definitely different from his baseline. There is no overt failure. I am holding on dosing any furosemide at this point. 04/28/20-plan is to restart Lasix 40 mg p.o. daily from today. (5) Morbid obesity with BMI of 60.0-69.9, adult Is this a current diagnosis for this admission?: Yes (6) Hyperglycemia due to diabetes mellitus Is this a current diagnosis for this admission?: No Plan: He has established with an fish trapper. He states that the medication that she most recently tried caused him to gain a lot of weight. He is on metformin at home. Continue insulin sliding scale before meals and at bedtime. 04/28/2020-blood sugar today is 173. Stable. Plan is to continue insulin sliding scale before meals and at bedtime. - Time Anticipated Discharge Disposition: Home, Self Care Anticipated Discharge Timeframe: within 24 hours
[2020-04-28] MEDS: ATORVASTATIN CALCIUM 40 MG TABLET PO SCH (21:31)
[2020-04-28] MEDS: ASPIRIN 81 MG TABLET, CHEWABLE PO SCH (21:32)
[2020-04-29] MEDS: HEPARIN SOD (PORCINE) 5,000 UNIT/ML 1 ML VIAL SUBCUT SCH ×2 (05:14→14:54)
[2020-04-29] MEDS: TRAMADOL HCL 50 MG TABLET PO SCH ×2 (05:14→14:53)
[2020-04-29] MEDS: BACLOFEN 10 MG TABLET PO SCH ×2 (05:15→14:54)
[2020-04-29] MEDS: PANTOPRAZOLE SODIUM 40 MG TABLET.DR PO SCH (05:15)
[2020-04-29] MEDS: GLIPIZIDE 10 MG TABLET PO SCH (09:40)
[2020-04-29] MEDS: AMLODIPINE BESYLATE 10 MG TABLET PO SCH (09:41)
[2020-04-29] MEDS: FINASTERIDE 5 MG TABLET PO SCH (09:41)
[2020-04-29] MEDS: MELOXICAM 15 MG TABLET PO SCH (09:41)
[2020-04-29] MEDS: DOCUSATE SODIUM 100 MG CAPSULE PO SCH ×2 (09:42→17:52)
[2020-04-29] MEDS: BENAZEPRIL HCL 20 MG TABLET PO SCH (09:42)
[2020-04-29] MEDS: INSULIN REG, HUMAN 100 UNIT/ML 3 ML VIAL (PYX) SUBCUT SCH ×3 (09:43→17:54)
[2020-04-29] MEDS: DULOXETINE HCL 30 MG CAPSULE.DR PO SCH (09:43)
[2020-04-29] MEDS: CARVEDILOL 12.5 MG TABLET PO SCH (09:43)
--- NOTE | 2020-04-29 10:29 | XCELERA REPORT ---
[address] [address] Transthoracic Echocardiogram Report Name: ISAMAR ROBERSON Age: 70 yrs Gender: Male : 1950 Patient Status: Inpatient Patient Location: [address] [place], [place] [address]B Study Date: 04/28/2020 03:32 PM History: CHF Height: 62 in Weight: 343 lb BSA: 2.4 m2 Procedure: A complete two-dimensional transthoracic echocardiogram was performed (2D, M-mode, spectral and color flow Doppler). The study was technically limited with all images being suboptimal in quality. Reason For Study: chf Ordering Physician: CRISTOBAL DIAS Performed By: Delfina Patrick Interpretation Summary Left ventricular systolic function is mildly reduced. The Ejection Fraction estimate is 45-50% The right ventricle is normal in size and function. There is a mild amount of mitral regurgitation There is no aortic valve stenosis There is a trace amount of tricuspid regurgitation There is no pericardial effusion. MMode/2D Measurements & Calculations RVDd: 3.9 cm LVIDd: 5.9 cm FS: 14.7 % Ao root diam: 2.7 cm IVSd: 1.1 cm LVIDs: 5.0 cm EDV(Teich): 172.6 ml Ao root area: 5.7 cm2 LVPWd: 1.0 cm ESV(Teich): 119.8 ml LA dimension: 4.2 cm EF(Teich): 30.6 % Doppler Measurements & Calculations MV E max benjie: MV P1/2t max benjie: Ao V2 max: LV V1 max P.5 cm/sec 94.9 cm/sec 194.6 cm/sec 3.6 mmHg MV A max benjie: MV P1/2t: 59.5 msec Ao max PG: LV V1 max: 61.7 cm/sec MVA(P1/2t): 3.7 cm2 15.1 mmHg 94.9 cm/sec MV E/A: 1.5 MV dec slope: LV dP/dt: 1136 mmHg/s 466.9 cm/sec2 MV dec time: 0.21 sec PA V2 max: PI end-d benjie: TR max benjie: MV P1/2t-pr_phl: 99.2 cm/sec 145.5 cm/sec 319.0 cm/sec 59.5 msec PA max PG: TR max P.9 mmHg 40.7 mmHg Left Ventricle The left ventricle is mildly dilated. There is mild to moderate concentric left ventricular hypertrophy. Left ventricular systolic function is mildly reduced. The Ejection Fraction estimate is 45-50%. Doppler measurements suggest pseudonormalized left ventricular relaxation, which is associated with grade II/IV or mild to moderate diastolic dysfunction. There is mild global hypokinesis of the left ventricle. Septal motion is consistent with post- operative state. Right Ventricle The right ventricle is normal in size and function. Mitral Valve The mitral valve is grossly normal. There is no mitral valve stenosis. There is a mild amount of mitral regurgitation. Aortic Valve The aortic valve is sclerotic and shows some degree of functional abnormality. The aortic valve is mildly calcified. There is no aortic valve stenosis. No aortic regurgitation is present. Tricuspid Valve The tricuspid valve is normal in structure and function. There is a trace amount of tricuspid regurgitation. Right ventricular systolic pressure is estimated to be elevated at 40-50mmHg. There is mild pulmonary hypertension by echo. Pulmonic Valve The pulmonic valve is not well visualized. There is a mild amount of pulmonic regurgitation. Great Vessels The aortic root is normal size. The inferior vena cava appeared normal and decreased > 50% with respiration (RAP 5-10 mmHg). Effusions There is no pericardial effusion. : CRISTOBAL DIAS Anil
--- NOTE | 2020-04-29 14:33 | PDOC PROGRESS REPORT ---
Subjective Progress Note for:: 04/29/20 Subjective:: Patient reports feeling much better today. He reports improvement in respiratory symptoms. No chest pain is reported. He is sitting up comfortably in a chair today. Reason For Visit: ELEVATED TROPONIN,CORONARY ARTERY DISEASE WITH Physical Exam Vital Signs: Temp Pulse Resp BP Pulse Ox 98.8 F 84 18 142/55 H 95 04/29/20 08:22 04/29/20 08:22 04/29/20 08:22 04/29/20 08:22 04/29/20 08:22 Intake & Output 04/28/20 04/29/20 04/30/20 06:59 06:59 06:59 Intake Total 1480 1200 Output Total 0 Balance 1480 1200 Weight 155.8 kg 155.8 kg General appearance: PRESENT: morbidly obese, well-developed, well-nourished Head exam: PRESENT: atraumatic, normocephalic Eye exam: PRESENT: EOMI Mouth exam: PRESENT: moist Respiratory exam: PRESENT: decreased breath sounds, symmetrical, unlabored Cardiovascular exam: PRESENT: RRR, +S1, +S2 Pulses: PRESENT: normal radial pulses GI/Abdominal exam: PRESENT: soft Rectal exam: PRESENT: deferred Extremities exam: PRESENT: +2 edema, other Neurological exam: PRESENT: alert, awake Psychiatric exam: PRESENT: appropriate affect Skin exam: PRESENT: dry, intact, normal color Results Laboratory Results: 04/28/20 04:54 04/28/20 04:54 04/25/20 04/25/20 04/25/20 15:38 15:38 19:37 Creatine Kinase 52 L CK-MB (CK-2) 3.07 Troponin I 0.220 0.212 NT-Pro-B Natriuret Pep 04/25/20 04/26/20 23:34 05:32 Creatine Kinase CK-MB (CK-2) Troponin I 0.211 NT-Pro-B Natriuret Pep 412 H EKG Comments: Transthoracic echocardiogram 04/28/2020. Left ventricular ejection fraction is mildly reduced and is estimated at 45 to 50% There is trace TR and mild MR. No pericardial effusion Impressions: Chest X-Ray 04/25/20 15:11 IMPRESSION: 1. Low lung volumes limits the examination. No acute pulmonary consolidation. 2. Cardiomegaly. Assessment & Plan - Diagnosis (1) Acute respiratory failure with hypoxia Is this a current diagnosis for this admission?: Yes Plan: Symptom suggestive of decompensated congestive heart failure Echocardiogram shows mildly reduced ejection fraction estimated 45 to 50%. Continue diuresis. Would recommend continued use of guideline directed medical therapy including beta-blockers and SHARLA inhibitor (2) Coronary artery disease Qualifiers: Coronary Disease-Associated Artery/Lesion type: [place] artery Associated angina: with unspecified angina Is this a current diagnosis for this admission?: Yes Plan: No ongoing chest pain. Mildly elevated troponins without active chest pain. This is probably due to congestive heart failure and not acute coronary syndrome. (3) Hypercholesterolemia Is this a current diagnosis for this admission?: Yes Plan: Continue statins. (4) Hypertension Qualifiers: Hypertension type: essential hypertension Qualified Code(s): I10 - Essential (primary) hypertension Is this a current diagnosis for this admission?: Yes Plan: Continue home regimen for systemic hypertension Watch blood pressure as we diurese. (5) NSTEMI (non-ST elevated myocardial infarction) Is this a current diagnosis for this admission?: Yes Plan: Elevated troponins in the setting of congestive heart failure Type II myocardial ischemia due to strain rather than acute coronary syndrome. (6) CHF (congestive heart failure), NYHA class II Qualifiers: Congestive heart failure type: systolic Congestive heart failure chronicity: chronic Qualified Code(s): I50.22 - Chronic systolic (congestive) heart failure Is this a current diagnosis for this admission?: Yes Plan: Continue benazepril 40 mg daily Continue carvedilol 25 mg twice daily Echocardiogram shows mildly reduced ejection fraction estimated at 45 to 50% No added salt in the diet He will require maintenance diuretic upon discharge.
[2020-04-29] MEDS: NYSTATIN TOPICAL POWDER 15 GM TP SCH ×2 (15:02→17:56)
--- NOTE | 2020-04-29 15:23 | PDOC DISCHARGE SUMMARY ---
Impression - Admit/DC Date/PCP Admission Date/Primary Care Provider: 04/25/20 22:28 NELY MEDEROS Discharge Date: 04/29/20 - Additional Information Resuscitation Status: Do Not Resuscitate Discharge Diet: As Tolerated, Cardiac Discharge Activity: Activity As Tolerated, Balance Activity w/Rest Referrals: DOROTHY MARINA FNP [Primary Care Provider] - Follow up as needed Prescriptions: Furosemide [Lasix] 20 mg PO DAILY #30 tablet Atorvastatin Calcium [Lipitor 40 mg Tablet] 40 mg PO QHS #30 tablet Nystatin [Mycostatin Topical Powder 15 gm] 1 applic TP QID #1 bottle Nicotine [Nicoderm 7 mg/24 Hr Transdermal Patch] 1 each TD DAILYP PRN #30 patch.td24 PRN Reason: Finasteride [Proscar 5 mg Tablet] 5 mg PO DAILY #30 tablet Pantoprazole Sodium [Protonix [address] Tablet] 40 mg PO Q6AM #30 tablet.dr Home Medications: Amlodipine Besylate [Norvasc 10 mg Tablet] 10 mg PO DAILY 06/25/19 Baclofen [Baclofen 10 mg Tablet] 10 mg PO Q8 06/25/19 Benazepril HCl [Lotensin] 40 mg PO DAILY 06/25/19 Carvedilol [Coreg 25 mg Tablet] 25 mg PO Q12 06/25/19 Finasteride [Proscar 5 mg Tablet] 5 mg PO DAILY 06/25/19 Meloxicam [Mobic] 15 mg PO DAILY 06/25/19 Metformin HCl [Glucophage] 1,000 mg PO BID 06/25/19 Tamsulosin HCl [Flomax 0.4 mg Cap.sr] 0.4 mg PO DAILY 06/25/19 Duloxetine HCl [Cymbalta] 60 mg PO BID 04/26/20 Glipizide [Glucotrol 10 mg Tablet] 20 mg PO DAILY 04/26/20 Insulin NPH Human Isophane [Novolin N Flexpen] 30 unit SQ BID 04/26/20 Aspirin [Aspirin 81 mg Chewable Tablet] 81 mg PO QHS tab.chew 04/29/20 Atorvastatin Calcium [Lipitor 40 mg Tablet] 40 mg PO QHS #30 tablet 04/29/20 Finasteride [Proscar 5 mg Tablet] 5 mg PO DAILY #30 tablet 04/29/20 Furosemide [Lasix] 20 mg PO DAILY #30 tablet 04/29/20 Nicotine [Nicoderm 7 mg/24 Hr Transdermal Patch] 1 each TD DAILYP PRN #30 patch.td24 04/29/20 Nystatin [Mycostatin Topical Powder 15 gm] 1 applic TP QID #1 bottle 04/29/20 Pantoprazole Sodium [Protonix [address] Tablet] 40 mg PO Q6AM #30 tablet.dr 04/29/20 Tramadol HCl [Ultram] 100 mg PO TIDP PRN #0 04/29/20 History of Present Illiness History of Present Illness: Per Admitting Physician: "ISAMAR ROBERSON is a 70 year old male with super morbid obesity (BMI 63) with a history of myocardial infarction and bypass surgery some 30+ years ago. He recently saw his prevention specialist and reports a good visit with "normal "testing. He is not normally on oxygen at home. He does have oxygen at home for some reason. He states that he started needing it several days ago when he noted increasing shortness of breath with physical activity. The shortness of breath seem to get worse with less activity. At home he has been fairly immobile and reports that the shortness of breath has been detrimental to his activities of daily living. From history it seems that he is not very active at home for multiple reasons. He does have his morbid obesity, diabetes, heart disease, hypertension, hyperlipidemia as well as chronic venous insufficiency with cobblestone skin and serous weeping. He has a Charcot foot on the left. He states that his heels get dry and crack. He reports that this happens sometimes on the toes as well. He has diffuse onychomycosis. He denies sleep apnea but likely has morbid obesity hypoventilation. On exam his troponin was 0.220 with the next troponin 0 0.212 on a third troponin pending. Twelve-lead EKG shows possible ST changes laterally. Chest x-ray suggests cardiomegaly. He states that he did have an echocardiogram recently with his prevention specialist and we will attempt to obtain those records as well as a recent EKG. He actually states that the original problem is his chronic back pain. He reports having had multiple MRI studies. He cannot lay back because of his back pain. He did not report breathing issues with change in position (orthopnea). He has a history of esophageal spasm. His history specifically related to his myocardial infarction and bypass revealed a very focused discomfort in the left parasternal area. He is not having that discomfort at this point. He has been afebrile and is not aware of any COVID exposure. The patient will be admitted for serial troponins. The emergency room physician did in fact discussed the case with cardiology and they will be following the patient tomorrow. At this point I do not appreciate any significant heart failure and the patient is not on furosemide at home. He has not tachycardic at this point. His carvedilol dosing was 25 mg once daily as well as benazepril 40 mg daily and amlodipine 10 mg daily. Unfortunately he continues to smoke. He states a pack of cigarettes usually lasts him 4 weeks. He reports that the latest medication that his certified appliance service technician tried for his diabetes made him gain weight. He is only listed is taking metformin 1 g twice a day in the medications in his chart. He will h ave before meals and at bedtime Accu-Cheks with sliding scale coverage. He will be admitted to telemetry. He will have serial troponins. I will repeat his EKG in the morning. For his heart disease he is on an adequate statin therapy especially with his underlying diabetes. I have ordered atorvastatin 40 mg as well as an aspirin. We are continuing his SHARLA inhibitor with lisinopril 40 mg daily as we do not carry benazepril. I have changed his carvedilol to 12.5 mg twice daily as it is not a 24-hour medication." Hospital Course Hospital Course: Per previous physician: "70 year old male with super morbid obesity (BMI 63) with a history of myocardial infarction and bypass surgery some 30+ years ago. He recently saw his prevention specialist and reports a good visit with "normal "testing. He is not normally on oxygen at home. He does have oxygen at home for some reason. He states that he started needing it several days ago when he noted increasing shortness of breath with physical activity. The shortness of breath seem to get worse with less activity. At home he has been fairly immobile and reports that the shortness of breath has been detrimental to his activities of daily living. From history it seems that he is not very active at home for multiple reasons. He does have his morbid obesity, diabetes, heart disease, hypertension, hyperl ipidemia as well as chronic venous insufficiency with cobblestone skin and serous weeping. He has a Charcot foot on the left. He states that his heels get dry and crack. He reports that this happens sometimes on the toes as well. He has diffuse onychomycosis. He denies sleep apnea but likely has morbid obesity hypoventilation. On exam his troponin was 0.220 with the next troponin 0 0.212 on a third troponin pending. Twelve-lead EKG shows possible ST changes laterally. Chest x-ray suggests cardiomegaly. He states that he did have an echocardiogram recently with his prevention specialist and we will attempt to obtain those records as well as a recent EKG. He actually states that the original problem is his chronic back pain. He reports having had multiple MRI studies. He cannot lay back because of his back pain. He did not report breathing issues with change in position (orthopnea). He has a history of esophageal spasm. His history specifically related to his myocardial infarction and bypass revealed a very focused discomfort in the left parasternal area. He is not having that discomfort at this point. He has been afebrile and is not aware of any COVID exposure. The patient will be admitted for serial troponins. The emergency room physician did in fact discussed the case with cardiology and they will be following the patient tomorrow. At this point I do not appreciate any significant heart failure and the patient is not on furosemide at home. He has not tachycardic at this point. His carvedilol dosing was 25 mg once daily as well as benazepril 40 mg daily and amlodipine 10 mg daily. Unfortunately he continues to smoke. He states a pack of cigarettes usually lasts him 4 weeks. He reports that the latest medication that his certified appliance service technician tried for his diabetes made him gain weight. He is only listed is taking metformin 1 g twice a day in the medications in his chart. He will have before meals and at bedtime Accu-Cheks with sliding scale coverage. He will be admitted to telemetry. He will have serial troponins. I will repeat his EKG in the morning. For his heart disease he is on an adequate statin therapy especially with his underlying diabetes. I have ordered atorvastatin 40 mg as well as an aspirin. We are continuing his SHARLA inhibitor with lisinopril 40 mg daily as we do not carry benazepril. I have changed his carvedilol to 12.5 mg twice daily as it is not a 24-hour medication. 04/27/2020-patient is comfortable in the bed communicating well. Echocardiogram will be done today. Denies any chest pains. Expressing desire to go home tomorrow. 04/28/20-patient is comfortable in the chair communicating well. is at bedside. She is asking about home oxygen. We did a home oxygen assessment with minimal activity pulse ox dropping to 85% on room air. He does qualify for home oxygen. No other complaints. Cardiology consult was done. Echocardiogram is pending at this time." On 04/29/2020 patient stable for discharge and requesting to be discharged home. He was tested and does qualify for home oxygen which has been ordered. Echocardiogram reviewed with patient and and all questions answered. Patient has mildly reduced systolic function of his LV consistent with previous NH and residual mild heart failure. Likely admission here was due to exacerbation acutely of his systolic heart failure. He has been started on low- dose oral Lasix at discharge and cardiac medications have been adjusted by prevention specialist here. He must follow-up with his PCP and prevention specialist. Per cardiology: "(1) Acute respiratory failure with hypoxia Is this a current diagnosis for this admission?: Yes Plan: Symptom suggestive of decompensated congestive heart failure Echocardiogram shows mildly reduced ejection fraction estimated 45 to 50%. Continue diuresis. Would recommend continued use of guideline directed medical therapy including beta-blockers and SHARLA inhibitor (2) Coronary artery disease Qualifiers: Coronary Disease-Associated Artery/Lesion type: [place] artery Associated angina: with unspecified angina Is this a current diagnosis for this admission?: Yes Plan: No ongoing chest pain. Mildly elevated troponins without active chest pain. This is probably due to congestive heart failure and not acute coronary syndrome. (3) Hypercholesterolemia Is this a current diagnosis for this admission?: Yes Plan: Continue statins. (4) Hypertension Qualifiers: Hypertension type: essential hypertension Qualified Code(s): I10 - Essential (primary) hypertension Is this a current diagnosis for this admission?: Yes Plan: Continue home regimen for systemic hypertension Watch blood pressure as we diurese. (5) NSTEMI (non-ST elevated myocardial infarction) Is this a current diagnosis for this admission?: Yes Plan: Elevated troponins in the setting of congestive heart failure Type II myocardial ischemia due to strain rather than acute coronary syndrome. (6) CHF (congestive heart failure), NYHA class II Qualifiers: Congestive heart failure type: systolic Congestive heart failure chronicity: chronic Qualified Code(s): I50.22 - Chronic systolic (congestive) heart failure Is this a current diagnosis for this admission?: Yes Plan: Continue benazepril 40 mg daily Continue carvedilol 25 mg twice daily Echocardiogram shows mildly reduced ejection fraction estimated at 45 to 50% No added salt in the diet He will require maintenance diuretic upon discharge." Physical Exam Vital Signs: Temp Pulse Resp BP Pulse Ox 98.8 F 84 18 142/55 H 95 04/29/20 08:22 04/29/20 08:22 04/29/20 08:22 04/29/20 08:22 04/29/20 08:22 Intake & Output 04/28/20 04/29/20 04/30/20 06:59 06:59 06:59 Intake Total 1480 1200 Output Total 0 Balance 1480 1200 Weight 155.8 kg 155.8 kg General appearance: PRESENT: no acute distress, morbidly obese, well-developed, well-nourished Head exam: PRESENT: atraumatic, normocephalic Eye exam: PRESENT: conjunctiva pink, EOMI, PERRLA. ABSENT: scleral icterus Respiratory exam: PRESENT: clear to auscultation carlos. ABSENT: rales, rhonchi, wheezes Cardiovascular exam: PRESENT: RRR. ABSENT: diastolic murmur, rubs, systolic murmur GI/Abdominal exam: PRESENT: normal bowel sounds, soft. ABSENT: distended, guarding, mass, organolmegaly, rebound, tenderness Extremities exam: PRESENT: pedal edema - Mild Neurological exam: PRESENT: alert, awake, oriented to person, oriented to place, oriented to time, oriented to situation Psychiatric exam: PRESENT: appropriate affect, normal mood Skin exam: PRESENT: dry, intact, warm Results Laboratory Results: WBC 6.0 10^3/uL (4.0-10.5) 04/28/20 04:54 RBC 4.73 10^6/uL (4.35-5.55) 04/28/20 04:54 Hgb 13.9 g/dL (13.5-17.0) 04/28/20 04:54 Hct 41.2 % (37.9-51.0) 04/28/20 04:54 MCV 87 fl (80-97) 04/28/20 04:54 MCH 29.5 pg (27.0-33.4) 04/28/20 04:54 MCHC 33.8 g/dL (32.0-36.0) 04/28/20 04:54 RDW 14.2 % (11.5-14.0) H 04/28/20 04:54 Plt Count 153 10^3/uL (150-450) 04/28/20 04:54 Lymph % (Auto) 37.9 % (13-45) 04/28/20 04:54 [place] % (Auto) 10.5 % (3-13) 04/28/20 04:54 Eos % (Auto) 2.4 % (0-6) 04/28/20 04:54 Baso % (Auto) 1.0 % (0-2) 04/28/20 04:54 Absolute Neuts (auto) 2.9 10^3/uL (1.7-8.2) 04/28/20 04:54 Absolute Lymphs (auto) 2.3 10^3/uL (0.5-4.7) 04/28/20 04:54 Absolute Monos (auto) 0.6 10^3/uL (0.1-1.4) 04/28/20 04:54 Absolute Eos (auto) 0.1 10^3/uL (0.0-0.6) 04/28/20 04:54 Absolute Basos (auto) 0.1 10^3/uL (0.0-0.2) 04/28/20 04:54 Seg Neutrophils % 48.2 % (42-78) 04/28/20 04:54 Sodium 137.6 mmol/L (137-145) 04/28/20 04:54 Potassium 4.9 mmol/L (3.6-5.0) 04/28/20 04:54 Chloride 96 mmol/L (98-107) L 04/28/20 04:54 Carbon Dioxide 36 mmol/L (22-30) H 04/28/20 04:54 Anion Gap 6 (5-19) 04/28/20 04:54 BUN 21 mg/dL (7-20) H 04/28/20 04:54 Creatinine 0.67 mg/dL (0.52-1.25) 04/28/20 04:54 Est GFR ( Amer) > 60 (>60) 04/28/20 04:54 Est GFR (MDRD) Non-Af > 60 (>60) 04/28/20 04:54 Glucose 184 mg/dL (75-110) H 04/28/20 04:54 POC Glucose 290 mg/dL (70-110) H 04/29/20 11:30 Hemoglobin A1c % 9.6 % (4.7-6.0) H 04/26/20 05:32 Calcium 9.1 mg/dL (8.4-10.2) 04/28/20 04:54 Magnesium 2.0 mg/dL (1.6-2.3) 04/28/20 04:54 Total Bilirubin 0.6 mg/dL (0.2-1.3) 04/28/20 04:54 Direct Bilirubin 0.5 mg/dL (0.0-0.4) H 04/28/20 04:54 Neonat Total Bilirubin Not Reportable 04/28/20 04:54 Neonat Direct Bilirubin Not Reportable 04/28/20 04:54 Neonat Indirect Bili Not Reportable 04/28/20 04:54 AST 15 U/L (17-59) L 04/28/20 04:54 ALT 20 U/L (<50) 04/28/20 04:54 Alkaline Phosphatase 61 U/L (38-126) 04/28/20 04:54 Creatine Kinase 52 U/L (55-170) L 04/25/20 15:38 CK-MB (CK-2) 3.07 ng/mL (<4.55) 04/25/20 15:38 Troponin I 0.211 ng/mL 04/25/20 23:34 NT-Pro-B Natriuret Pep 412 pg/mL (<125) H 04/26/20 05:32 Total Protein 6.3 g/dL (6.3-8.2) 04/28/20 04:54 Albumin 3.6 g/dL (3.5-5.0) 04/28/20 04:54 Triglycerides 116 mg/dL (<150) 04/26/20 05:32 Cholesterol 160.30 mg/dL (0-200) 04/26/20 05:32 LDL Cholesterol Direct 92 mg/dL (<100) 04/26/20 05:32 VLDL Cholesterol 23.0 mg/dL (10-31) 04/26/20 05:32 HDL Cholesterol 54 mg/dL (>40) 04/26/20 05:32 Urine Color YELLOW 04/25/20 22:54 Urine Appearance CLEAR 04/25/20 22:54 Urine pH 5.0 (5.0-9.0) 04/25/20 22:54 Ur Specific [place] 1.027 04/25/20 22:54 Urine Protein NEGATIVE mg/dL (NEGATIVE) 04/25/20 22:54 Urine Glucose (UA) 50 mg/dL (NEGATIVE) H 04/25/20 22:54 Urine Ketones NEGATIVE mg/dL (NEGATIVE) 04/25/20 22:54 Urine Blood NEGATIVE (NEGATIVE) 04/25/20 22:54 Urine Nitrite (Reflex) NEGATIVE (NEGATIVE) 04/25/20 22:54 Urine Bilirubin NEGATIVE (NEGATIVE) 04/25/20 22:54 Urine Urobilinogen NEGATIVE mg/dL (<2.0) 04/25/20 22:54 Leukocyte Esterase Rfl NEGATIVE (NEGATIVE) 04/25/20 22:54 Urine RBC (Auto) 1 /HPF 04/25/20 22:54 U Hyaline Cast (Auto) 2 /LPF 04/25/20 22:54 Urine WBC (Reflex) 2 /HPF 04/25/20 22:54 Squamous Epi Cells Auto <1 /HPF 04/25/20 22:54 Urine Mucus (Auto) OCC /LPF 04/25/20 22:54 Urine Ascorbic Acid NEGATIVE (NEGATIVE) 04/25/20 22:54 04/25/20 04/25/20 04/25/20 15:38 19:37 23:34 CK-MB (CK-2) 3.07 Troponin I 0.220 0.212 0.211 NT-Pro-B Natriuret Pep 04/26/20 05:32 CK-MB (CK-2) Troponin I NT-Pro-B Natriuret Pep 412 H Impressions: Chest X-Ray 04/25/20 15:11 IMPRESSION: 1. Low lung volumes limits the examination. No acute pulmonary consolidation. 2. Cardiomegaly. Plan Plan of Treatment: Follow-up with PCP Follow-up with cardiology Vegan diet Time Spent: Greater than 30 Minutes Stroke Is this a Stroke Patient?: No Acute Heart Failure Is this a Heart Failure Patient?: Yes Documentation of LVEF assessment?: Yes LVEF: LVEF Greater Than 40% Anticoagulant Therapy: N/A
[2020-04-29] MEDS: TAMSULOSIN HCL 0.4 MG CAP.SR.24H PO SCH (17:54)
[2020-04-29 18:32] VITALS: BP 137/46
== END 2020-04-29 19:00 | disposition home health service (06) | DRG 280 ==
LOC: ER 14:54 → EH 22:28 → 4N 04-26 00:45
PROVIDERS: ADMIT Hospitalist; ATTEND Internal Medicine
DX: I21.A1 Myocardial infarction type 2 (principal); J96.01 Acute respiratory failure with hypoxia; I50.22 Chronic systolic (congestive) heart failure; E66.2 Morbid (severe) obesity with alveolar hypoventilation; Z68.44 Body mass index [BMI] 60.0-69.9, adult; E11.610 Type 2 diabetes mellitus with diabetic neuropathic arthropathy; E11.65 Type 2 diabetes mellitus with hyperglycemia; I11.0 Hypertensive heart disease with heart failure; E78.00 Pure hypercholesterolemia, unspecified; K21.9 Gastro-esophageal reflux disease without esophagitis; B35.1 Tinea unguium; M54.9 Dorsalgia, unspecified; G89.29 Other chronic pain; F17.210 Nicotine dependence, cigarettes, uncomplicated; Z66 Do not resuscitate; I25.2 Old myocardial infarction; Z79.84 Long term (current) use of oral hypoglycemic drugs; Z79.899 Other long term (current) drug therapy; Z95.5 Presence of coronary angioplasty implant and graft
CPT/HCPCS: 36415; 71045; 80048; 80053; 80061; 81001; 82550; 82553; 82962; 83036; 83735; 83880; 84484; 85025; 93005; 93010; 93306; 96374; 99285; J1644; J1815; J3010; J3490

== ENCOUNTER 2020-06-20 12:25 | Inpatient (IN) | payer MEDICARE, OTHER ==
[2020-06-20 13:16] LABS: ABSOLUTE EOSINOPHILS # (AUTO) 0.1 10^3/uL (0.0-0.6); ABSOLUTE LYMPHOCYTES (AUTO) 1.9 10^3/uL (0.5-4.7); ABSOLUTE MONOCYTES (AUTO) 0.6 10^3/uL (0.1-1.4); ABSOLUTE NEUT (AUTO) 5.4 10^3/uL (1.7-8.2); BASOPHILS % (AUTO) 0.5 % (0-2); EOSINOPHILS % (AUTO) 0.8 % (0-6); HEMATOCRIT 38.2 % (37.9-51.0); HEMOGLOBIN 12.5 g/dL (13.5-17.0); LYMPHOCYTES % (AUTO) 23.1 % (13-45); MEAN CORPUSCULAR HEMOGLOBIN 28.7 pg (27.0-33.4); MEAN CORPUSCULAR HGB CONC 32.7 g/dL (32.0-36.0); MEAN CORPUSCULAR VOLUME 88 fl (80-97); MONOCYTES % (AUTO) 7.8 % (3-13); PLATELET COUNT 193 10^3/uL (150-450); RED BLOOD COUNT 4.36 10^6/uL (4.35-5.55); RED CELL DISTRIBUTION WIDTH 14.3 % (11.5-14.0); SEGMENTED NEUTROPHILS % (AUTO) 67.8 % (42-78); TOTAL CELLS COUNTED % (AUTO) 100 %
[2020-06-20 13:40] LABS: ALBUMIN 3.7 g/dL (3.5-5.0); ALKALINE PHOSPHATASE 69 U/L (38-126); ANION GAP 6 (5-19); ASPARTATE AMINO TRANSFERASE 26 U/L (17-59); BILIRUBIN,DIRECT 0.3 mg/dL (0.0-0.4); BILIRUBIN,TOTAL 0.5 mg/dL (0.2-1.3); BLOOD UREA NITROGEN 32 mg/dL (7-20); CALCIUM 9.8 mg/dL (8.4-10.2); CARBON DIOXIDE 37 mmol/L (22-30); CHLORIDE 97 mmol/L (98-107); CREATINE KINASE 243 U/L (55-170); GLUCOSE 177 mg/dL (75-110); POTASSIUM 4.8 mmol/L (3.6-5.0); TOTAL PROTEIN 6.5 g/dL (6.3-8.2)
[2020-06-20 13:52] LABS: CREATINE KINASE MB 27.6 ng/mL (<4.55)
[2020-06-20 13:57] LABS: TROPONIN I 2.43 ng/mL
--- NOTE | 2020-06-20 14:05 | RADIOLOGY REPORT (SQ) ---
EXAM DESCRIPTION: CHEST SINGLE VIEW IMAGES COMPLETED DATE/TIME: 06/20/2020 1:38 pm REASON FOR STUDY: difficulty breathing COMPARISON: 04/25/2020 EXAM PARAMETERS: NUMBER OF VIEWS: One view. TECHNIQUE: Single frontal radiographic view of the chest acquired. RADIATION DOSE: NA LIMITATIONS: None. FINDINGS: LUNGS AND PLEURA: Minimal chronic change left lower lung zone possibly post CABG. No acut e or new infiltrates. MEDIASTINUM AND HILAR STRUCTURES: No masses. Contour normal. HEART AND VASCULAR STRUCTURES: Heart normal in size. Normal vasculature. BONES: No acute findings. HARDWARE: None in the chest. OTHER: No other significant finding. IMPRESSION: NO ACUTE RADIOGRAPHIC FINDING IN THE CHEST. TECHNICAL DOCUMENTATION: JOB ID: [id number] 2010 [employer]- All Rights Reserved Reading location - IP/workstation name: [email or web address]
[2020-06-20] MEDS ORDERED: ASPIRIN 81 MG TABLET, CHEWABLE PO ONE (14:24)
[2020-06-20] MEDS ORDERED: NITROGLYCERIN 10 MG (0.4 MG/HR) PATCH.TD24 TD ONE (14:47)
--- NOTE | 2020-06-20 14:50 | EKG REPORT ---
SEVERITY:- ABNORMAL ECG - SINUS RHYTHM NONSPECIFIC INTRAVENTRICULAR CONDUCTION DELAY ST DEPRESSION, CONSIDER ISCHEMIA, LAT LEADS : Confirmed by: Bon Juárez MD 20-Jun-2020 14:49:12
--- NOTE | 2020-06-20 14:50 | EKG REPORT ---
SEVERITY:- ABNORMAL ECG - SINUS RHYTHM NONSPECIFIC INTRAVENTRICULAR CONDUCTION DELAY ST DEPRESSION, CONSIDER ISCHEMIA, LAT LEADS : Confirmed by: Bon Juárez MD 20-Jun-2020 14:49:27
--- NOTE | 2020-06-20 16:00 | ER Document Report ---
Entered by BENEDICT ENCARNACION SCRIBE 06/20/20 1422 Acting as scribe for:CLEOPATRA NICHOLS MD ED Respiratory Problem - General Chief Complaint: Shortness Of Breath Stated Complaint: SHORTNESS OF BREATH Time Seen by Provider: 06/20/20 14:09 Mode of Arrival: Medic Information source: Patient, Emergency Med Personnel Notes: This 70 year old male patient with a history of morbid obesity, HTN, HLD, NSTEMI, CAD s/p CABG x35 years ago, CHF and type 2 diabetes presents to the ED via EMS with complaints of shortness of breath for the past x1 week. Patient states that he has been increasingly weak and short of breath and that he has fallen about x5-6 times this past weak. He states that he has had chest pain on and off "for years," but today was "really bad" and started around 0630 and lasted until he arrived here around 1225. Denies any chest pain at this time. He did not receive and aspirin prior to arrival. Per EMS, patient was 90% on RA initially and was placed on 4L supplemental O2 via NC with improvement to 97% O2 saturation. TRAVEL OUTSIDE OF THE [place] IN LAST 30 DAYS: No - Related Data Allergies/Adverse Reactions: iodine Allergy (Verified 03/17/18 11:05) Iodinated Contrast Media Adverse Reaction (Verified 04/26/20 00:10) Hives Past Medical History - General Information source: Patient, [facility] Records - Social History Smoking Status: Former Smoker Cigarette use (# per day): No Chew tobacco use (# tins/day): No Smoking Education Provided: No Frequency of alcohol use: None Drug Abuse: None Lives with: Spouse/Significant other Family History: Reviewed & Not Pertinent Patient has suicidal ideation: No Patient has homicidal ideation: No - Past Medical History Cardiac Medical History: Reports: Hx Coronary Artery Disease, Hx Heart Attack - 35 YEARS, Hx Hypercholesterolemia, Hx Hypertension Endocrine Medical History: Reports: Hx Diabetes Mellitus Type 2 GI Medical History: Reports: Hx Gastroesophageal Reflux Disease Past Surgical History: Reports: Hx Cholecystectomy, Hx Coronary Artery Bypass Graft, Hx Open Heart Surgery - 35 YEARS Review of Systems - Review of Systems Constitutional: See HPI, Weakness EENT: No symptoms reported Cardiovascular: See HPI, Chest pain Respiratory: See HPI, Short of breath Gastrointestinal: No symptoms reported Genitourinary: No symptoms reported Male Genitourinary: No symptoms reported Musculoskeletal: No symptoms reported Skin: No symptoms reported Hematologic/Lymphatic: No symptoms reported Neurological/Psychological: No symptoms reported -: Yes All other systems reviewed and negative Physical Exam - Vital signs Vitals: Pulse Ox 96 06/20/20 12:26 - General General appearance: Alert In distress: None - HEENT Head: Normocephalic, Atraumatic Eyes: Normal Pupils: PERRL - Respiratory Respiratory status: Other - on BiPAP Breath sounds: Decreased air movement - Diminished breath sounds in the bases - Abdominal Inspection: Morbidly Obese Distension: Distended Bowel sounds: Normal Tenderness: Nontender - Abdomen soft Organomegaly: No organomegaly - Back Back: Normal, Nontender - Extremities General upper extremity: Normal inspection General lower extremity: Edema - Brawny edema to bilateraly lower extremities - Neurological Neuro grossly intact: Yes Orientation: AAOx4 [place] Scale Eye Opening: Spontaneous [place] Scale Verbal: Oriented [place] Scale Motor: Obeys Commands Mandeep Coma Scale Total: 15 - Psychological Associated symptoms: Normal affect, Normal mood - Skin Skin Temperature: Warm Skin Moisture: Dry Skin Color: Normal Course - Re-evaluation Re-evalutation: 06/20/20 16:26 Patient currently resting comfortably on BiPAP. Chest pain-free. - Vital Signs Vital signs: Temp Pulse Resp BP Pulse Ox 97.5 F 96 27 H 138/71 H 98 06/21/20 03:35 06/21/20 03:35 06/21/20 04:15 06/21/20 03:35 06/21/20 04:15 06/20/20 16:27 Vital signs shows a pulse ox of 96% blood pressure 117/95 respiratory rate 23 See chart for further vital sign updates. - Laboratory Result Diagrams: 06/21/20 05:28 06/21/20 05:28 Laboratory results interpreted by me: 06/20/20 06/20/20 06/20/20 12:40 12:40 12:40 Hgb 12.5 L RDW 14.3 H Chloride 97 L Carbon Dioxide 37 H BUN 32 H Glucose 177 H Creatine Kinase 243 H CK-MB (CK-2) 27.60 H NT-Pro-B Natriuret Pep 1470 H Urine Blood Ur Leukocyte Esterase 06/20/20 16:15 Hgb RDW Chloride Carbon Dioxide BUN Glucose Creatine Kinase CK-MB (CK-2) NT-Pro-B Natriuret Pep Urine Blood SMALL H Ur Leukocyte Esterase TRACE H 06/20/20 16:28 Patient has congestive heart failure, and elevated troponin leak, and NSTEMI. Patient also has diabetes with a blood sugar 177. - Diagnostic Test Radiology reviewed: Image reviewed, Reports reviewed Radiology results interpreted by me: 06/20/20 16:29 Chest X-Ray 06/20/20 12:56 IMPRESSION: NO ACUTE RADIOGRAPHIC FINDING IN THE CHEST. Chest x-ray shows no acute process. - EKG Interpretation by Me Additional EKG results interpreted by me: 06/20/20 16:29 Twelve-lead EKG time 1310 normal sinus rhythm rate of 87 nonspecific intraventricular conduction delay. OK interval QRS interval and QT interval within normal range. Nonspecific ST depression consider lateral ischemia. No evidence for STEMI. Twelve-lead EKG at 1423 shows a normal sinus rhythm rate of 80 normal intervals OK QRS and QT intervals. Nonspecific interventricular conduction delay noted ST depression in the lateral leads consider ischemia no evidence for any STEMI at this time. - Consults Dr. Hooks, [employer] Manager Time consulted: 14:45 - Case discussed with Dr. Hooks vocational nurse procedure rn who recommended patient did not meet criteria for transfer for an immediate emergent cardiac catheterization. Most likely patient had an NSTEMI with an elevated 2.4 troponin level and was chest pain-free and EKG not showing any evidence of an acute STEMI. Recommended admission to the hospital staff and that he would consult on patient. Dr. Pascual, Hospitalist Time consulted: 15:37 - Case discussed with the on-call hospitalist Dr. Islas, who discussed case with Dr. Hooks and agreed to admit patient to the [facility]. Critical Care Note - Critical Care Note Total time excluding time spent on procedures (mins): 55 - Management of patient who presented with acute shortness of breath and chest pain. Requiring BiPAP for O2 delivery and management of chest pain with a NSTEMI positive troponin of 2.4. Discussions with procedure rn and hospitalist staff. Management of oxygen saturation through BiPAP. Discharge - Discharge Clinical Impression: NSTEMI (non-ST elevated myocardial infarction), CHF (congestive heart failure), NYHA class II, Morbid obesity with BMI of 60.0-69.9, adult, Morbid obesity with BMI of 50.0-59.9, adult Coronary artery disease Qualifiers: Coronary Disease-Associated Artery/Lesion type: [place] artery Associated angina: with unspecified angina Condition: Critical Disposition: ADMITTED INPATIENT Admitting Provider: Ankur (Hospitalist) Unit Admitted: IMCU I personally performed the services described in the documentation, reviewed and edited the documentation which was dictated to the scribe in my presence, and it accurately records my words and actions.
[2020-06-20 16:14] LABS: INTERNATIONAL RATION (INR) 0.95; PARTIAL THROMBOPLASTIN TIME 26.7 SEC (23.5-35.8); PROTHROMBIN TIME 12.9 SEC (11.4-15.4)
[2020-06-20] MEDS ORDERED: MAG HYDROX/AL HYDROX/SIMETH SUSP 30 ML UDCUP PO PRN (17:37)
[2020-06-20] MEDS ORDERED: ONDANSETRON HCL INJ/PF 4 MG/2 ML SDV IV PRN (17:37)
[2020-06-20] MEDS ORDERED: TRAMADOL HCL 50 MG TABLET PO PRN (18:01)
[2020-06-20] MEDS ORDERED: ACETAMINOPHEN 325 MG TABLET PO PRN (18:05)
[2020-06-20] MEDS ORDERED: GLUCAGON,HUMAN RECOMB 1 MG INJ IM PRN (18:08)
[2020-06-20] MEDS ORDERED: DEXTROSE 40% GEL 15 GM TUBE PO PRN ×2 (18:08)
[2020-06-20] MEDS ORDERED: DEXTROSE 50%-WATER 25 GM/50 ML DISP.SYRIN IV PRN ×2 (18:08)
[2020-06-20] MEDS ORDERED: CLOPIDOGREL BISULFATE 75 MG TABLET PO ONE ×2 (18:30→22:00)
[2020-06-20] MEDS ORDERED: FUROSEMIDE INJ/PF 40 MG/4 ML SDV IV ONE ×2 (18:30→22:00)
[2020-06-20] MEDS ORDERED: NITROGLYCERIN 0.4 MG/TAB 25 TAB/BOTTLE SL PRN (18:30)
[2020-06-20 18:32] LABS: APPEARANCE,URINE SLIGHTLY-CLOUDY; BILIRUBIN,URINE NEGATIVE (NEGATIVE); COLOR,URINE YELLOW; GLUCOSE, URINE NEGATIVE (NEGATIVE); KETONES,URINE NEGATIVE (NEGATIVE); LEUKOCYTE ESTERASE,URINE TRACE (NEGATIVE); NITRITE,URINE NEGATIVE (NEGATIVE); PROTEIN,URINE NEGATIVE (NEGATIVE); URINE SPECIFIC GRAVITY 1.021; UROBILINOGEN,URINE NEGATIVE mg/dL (<2.0)
--- NOTE | 2020-06-20 18:38 | PDOC H&P ---
History of Present Illness Admission Date/PCP: 06/20/20 16:27 NELY MEDEROS Patient complains of: Shortness of breath History of Present Illness: ISAMAR ROBERSON is a 70 M with CAD s/p CABG 30 years ago, Morbid obesity, hypertension, hyperlipidemia, diabetes type 2, who presents to the hospital for evaluation of acute worsening shortness of breath. Patient states he did not have any chest pain at that time but states that he had back pain in his upper back. Patient's also noted that he was grabbing his chest during the episode earlier. He has chronic shortness of breath and sleeps in a recliner due to orthopnea. This has been going on for a while. He has been unable to tolerate laying down flat. He has also had worsening swelling in his lower extremities bilaterally. Denies any fevers or chills. Denies any history of diagnosis of COPD or asthma. He did smoke in the past but has stopped a while ago. He also denies any sick contacts. Denies any new onset cough, rhinorrhea. In the ER patient was noted to have significant trouble breathing and was placed on his BiPAP. Blood work also notable for elevated troponin. ER provi laxmi contacted Dr. Hooks who recommends admission to our facility for management of NSTEMI as emergent lhc is not indicated. Past Medical History Cardiac Medical History: Reports: Coronary Artery Disease, Myocardial Infarction - 35 YEARS, Hyperlipidema, Hypertension Pulmonary Medical History: Denies: Asthma, Chronic Obstructive Pulmonary Disease (COPD), Sleep Apnea - Patient denies sleep apnea Neurological Medical History: Denies: Seizures Endocrine Medical History: Reports: Diabetes Mellitus Type 2 GI Medical History: Reports: Gastroesophageal Reflux Disease Denies: Hepatitis, Hiatal Hernia Psychiatric Medical History: Denies: Depression Hematology: Denies: Anemia, Sickle Cell Disease Infectious Medical History: Denies: Clostridium Difficile Past Surgical History Past Surgical History: Reports: Cholecystectomy, Coronary Artery Bypass Graft Denies: Pacemaker Social History Lives with: Spouse/Significant other Smoking Status: Former Smoker Electronic Cigarette use?: No Frequency of Alcohol Use: None Hx Recreational Drug Use: No Drugs: None Hx Prescription Drug Abuse: No - Advance Directive Resuscitation Status: Do Not Resuscitate Family History Family History: DM, Hypertension Parental Family History Reviewed: Yes Children Family History Reviewed: NA Sibling(s) Family History Reviewed.: Yes Medication/Allergy Home Medications: Amlodipine Besylate [Norvasc 10 mg Tablet] 10 mg PO DAILY 06/25/19 Benazepril HCl [Lotensin] 40 mg PO DAILY 06/25/19 Carvedilol [Coreg 25 mg Tablet] 25 mg PO Q12 06/25/19 Meloxicam [Mobic] 15 mg PO DAILY 06/25/19 Metformin HCl [Glucophage] 1,000 mg PO BID 06/25/19 Tamsulosin HCl [Flomax 0.4 mg Cap.sr] 0.4 mg PO DAILY 06/25/19 Duloxetine HCl [Cymbalta] 60 mg PO BID 04/26/20 Glipizide [Glucotrol 10 mg Tablet] 20 mg PO DAILY 04/26/20 Insulin NPH Human Isophane [Novolin N Flexpen] 30 unit SQ BID 04/26/20 Atorvastatin Calcium [Lipitor 40 mg Tablet] 40 mg PO QHS #30 tablet 04/29/20 Finasteride [Proscar 5 mg Tablet] 5 mg PO DAILY #30 tablet 04/29/20 Furosemide [Lasix] 20 mg PO DAILY #30 tablet 04/29/20 Tramadol HCl [Ultram] 100 mg PO TIDP PRN #0 04/29/20 Aspirin [Aspirin 81 mg Chewable Tablet] 81 mg PO QAM 06/20/20 Cyclobenzaprine HCl [Flexeril 10 mg Tablet] 10 mg PO TIDP PRN 06/20/20 Terbinafine HCl [Lamisil 250 mg Tablet] 250 mg PO DAILY 06/20/20 Allergies/Adverse Reactions: iodine Allergy (Verified 03/17/18 11:05) Iodinated Contrast Media Adverse Reaction (Verified 04/26/20 00:10) Hives Review of Systems Constitutional: PRESENT: fatigue. ABSENT: chills, fever(s) Eyes: ABSENT: visual disturbances Ears: ABSENT: hearing changes Nose, Mouth, and Throat: ABSENT: headache(s), sore throat, vertigo Cardiovascular: PRESENT: edema, orthropnea Respiratory: PRESENT: dyspnea. ABSENT: cough Gastrointestinal: ABSENT: abdominal pain, diarrhea, nausea, vomiting Genitourinary: ABSENT: dysuria Musculoskeletal: PRESENT: back pain, muscle weakness Neurological: PRESENT: frequent falls. ABSENT: dizziness Psychiatric: PRESENT: hallucinations. ABSENT: anxiety, depression, homidical ideation, suicidal ideation Allergic/Immunologic: PRESENT: other - denies rhinorrhea or nasal congestion Physical Exam Vital Signs: Temp Pulse Resp BP Pulse Ox 20 117/95 H 100 06/20/20 16:22 06/20/20 12:41 06/20/20 16:22 Intake & Output 06/19/20 06/20/20 06/21/20 06:59 06:59 06:59 Weight 142.882 kg General appearance: PRESENT: cooperative, mild distress, morbidly obese. ABSENT: hard of hearing Mouth exam: PRESENT: neck supple Neck exam: ABSENT: JVD Respiratory exam: PRESENT: decreased breath sounds, tachypnea, unlabored, other - conversation dyspnea. ABSENT: accessory muscle use, symmetrical, wheezes Cardiovascular exam: PRESENT: RRR, +S1, +S2. ABSENT: tachycardia GI/Abdominal exam: PRESENT: distended, soft. ABSENT: firm, guarding, rebound, rigid, tenderness Extremities exam: PRESENT: other - 3+ bilateral lower extremity edema Neurological exam: PRESENT: alert, awake, oriented to person, oriented to place, oriented to time Psychiatric exam: ABSENT: agitated, anxious Results Laboratory Results: 06/20/20 12:40 06/20/20 12:40 06/20/20 06/20/20 12:40 12:40 WBC 8.0 RBC 4.36 Hgb 12.5 L Hct 38.2 MCV 88 MCH 28.7 MCHC 32.7 RDW 14.3 H Plt Count 193 Seg Neutrophils % 67.8 Sodium 139.9 Potassium 4.8 Chloride 97 L Carbon Dioxide 37 H Anion Gap 6 BUN 32 H Creatinine 0.76 Est GFR ( Amer) > 60 Glucose 177 H Calcium 9.8 Total Bilirubin 0.5 AST 26 Alkaline Phosphatase 69 Total Protein 6.5 Albumin 3.7 06/20/20 06/20/20 12:40 12:40 Creatine Kinase 243 H CK-MB (CK-2) 27.60 H Troponin I 2.430 NT-Pro-B Natriuret Pep 1470 H Impressions: Chest X-Ray 06/20/20 12:56 IMPRESSION: NO ACUTE RADIOGRAPHIC FINDING IN THE CHEST. Assessment and Plan - Diagnosis (1) NSTEMI (non-ST elevated myocardial infarction) Is this a current diagnosis for this admission?: Yes Plan: Currently patient is chest pain-free. Therapeutic Lovenox Aspirin Plavix, beta-yann, atorvastatin Trend troponins and monitor EKGs Placed on telemetry Case discussed with Dr. Hooks who will be seeing patient in the morning. Monitor very closely for deterioration especially in light of patient's heart failure. (2) Acute on chronic diastolic (congestive) heart failure Is this a current diagnosis for this admission?: Yes Plan: Patient is certainly volume overloaded Recent echocardiogram showed heart failure with midrange ejection fraction of 40 to 45% and diastolic dysfunction We will place patient on IV diuresis with Lasix IV 40 mg Strict I's and O's and monitor output Patient will need repeat echocardiogram in light of patient's ACS. 1500 cc fluid restriction (3) Hypoxia Is this a current diagnosis for this admission?: Yes Plan: Patient was recently started on home oxygen 3 L. Chest x-ray shows findings suggestive of chronic interstitial disease. Have discussed with patient about the CT but patient states that he cannot tolerate laying flat for even up to 5 minutes. I have to defer further imaging at this time. Currently patient able to tolerate being on 4 L nasal cannula with SPO2 maintaining in the mid 90s. (4) Chronic back pain Is this a current diagnosis for this admission?: Yes (5) Frequent falls Is this a current diagnosis for this admission?: Yes Plan: PT/OT. Highly suspect patient will need SNF. systems planner consulted. (6) Hallucinations Is this a current diagnosis for this admission?: Yes Plan: Informed that patient has been hallucinating at home which began about a week ago. 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 However I do not see any information suggestive of hallucination as an ADR of terbinafine. Patient also denies any psychiatric history. Denies headache or fevers. Patient currently not experiencing the hallucinations at this time. Denies any use of narcotics besides his chronic tramadol which he takes about once or twice a day. Wonder if this could be delirium due to hypoxia and will also check VBG for CO2 retention. Check TSH. (7) Hyperglycemia due to diabetes mellitus Is this a current diagnosis for this admission?: Yes Plan: Resume NPH, sliding scale and Accu-Cheks (8) Hypertension Qualifiers: Hypertension type: essential hypertension Qualified Code(s): I10 - Essential (primary) hypertension Is this a current diagnosis for this admission?: Yes Plan: BP is currently soft. Will resume antihypertensive with caution. Discontinue amlodipine given peripheral swelling. (9) Morbid obesity with BMI of 50.0-59.9, adult Is this a current diagnosis for this admission?: Yes - Time Time Spent with patient: 35 or more minutes Anticipated Discharge Disposition: Jail Facility Anticipated Discharge Timeframe: 4 days
[2020-06-20 18:41] LABS: VENOUS BLOOD BASE EXCESS 5.7 mmol/L; VENOUS BLOOD PH 7.22 (7.30-7.42)
--- NOTE | 2020-06-20 18:42 | ADVANCED CARE ---
- Diagnosis (1) NSTEMI (non-ST elevated myocardial infarction) Diagnosis Current: Yes (2) Acute on chronic diastolic (congestive) heart failure Diagnosis Current: Yes Resuscitation Status: Do Not Resuscitate Discussion: Discussed with patient in the presence of his . Patient wants to be DNR/DNI. Does not want intubation even in the absence of cardiac arrest. Patient is okay with noninvasive positive pressure ventilation. He wants full treatment. Patient is also okay with cardioversion or defibrillation for treatment of arrhythmias. Time Spent: 25mins
[2020-06-20 18:52] LABS: VENOUS BLOOD PCO2 100.7 mmHg (35-63)
[2020-06-20] MEDS ORDERED: INSULIN NPH (ISOPHANE), HUMAN 100 UNIT/ML 3 ML SUBCUT ONE (19:00)
[2020-06-20] MEDS ORDERED: ALBUTEROL SULFATE 0.042% NEB (1.25 MG/3 ML) AMPUL NEB PRN (20:24)
[2020-06-20] MEDS ORDERED: IPRATROPIUM/ALBUTEROL 0.5-2.5 MG/3 ML AMPUL NEB ONE (21:00)
[2020-06-20] MEDS ORDERED: METHYLPREDNISOLONE INJ 40 MG/1 ML SDV IV ONE (21:30)
[2020-06-20] MEDS: DULOXETINE HCL 30 MG CAPSULE.DR PO SCH (21:38)
[2020-06-20] MEDS: CARVEDILOL 12.5 MG TABLET PO SCH (21:38)
[2020-06-20] MEDS: ENOXAPARIN SODIUM INJ 150 MG/1 ML DISP.SYRIN SUBCUT SCH (21:39)
[2020-06-20] MEDS: INSULIN LISPRO 100 UNIT/ML 3 ML VIAL SUBCUT SCH (21:39)
[2020-06-20 22:00] LABS: VENOUS BLOOD BASE EXCESS 10.9 mmol/L; VENOUS BLOOD PH 7.26 (7.30-7.42)
[2020-06-20] MEDS ORDERED: ATORVASTATIN CALCIUM 40 MG TABLET PO SCH (22:00)
[2020-06-20 22:35] LABS: VENOUS BLOOD PCO2 95.1 mmHg (35-63)
[2020-06-21] MEDS: IPRATROPIUM/ALBUTEROL 0.5-2.5 MG/3 ML AMPUL NEB SCH ×4 (01:44→20:31)
[2020-06-21 05:41] LABS: VENOUS BLOOD BASE EXCESS 7.6 mmol/L; VENOUS BLOOD HCO3 37.1 mmol/L (20-32); VENOUS BLOOD PH 7.29 (7.30-7.42)
[2020-06-21 05:45] LABS: ABSOLUTE LYMPHOCYTES (AUTO) 1.1 10^3/uL (0.5-4.7); ABSOLUTE MONOCYTES (AUTO) 0.2 10^3/uL (0.1-1.4); ABSOLUTE NEUT (AUTO) 5.4 10^3/uL (1.7-8.2); BASOPHILS % (AUTO) 0.2 % (0-2); EOSINOPHILS % (AUTO) 0.2 % (0-6); HEMATOCRIT 37.6 % (37.9-51.0); HEMOGLOBIN 12.5 g/dL (13.5-17.0); LYMPHOCYTES % (AUTO) 16.1 % (13-45); MEAN CORPUSCULAR HEMOGLOBIN 28.9 pg (27.0-33.4); MEAN CORPUSCULAR HGB CONC 33.2 g/dL (32.0-36.0); MEAN CORPUSCULAR VOLUME 87 fl (80-97); MONOCYTES % (AUTO) 2.6 % (3-13); PLATELET COUNT 169 10^3/uL (150-450); RED BLOOD COUNT 4.32 10^6/uL (4.35-5.55); RED CELL DISTRIBUTION WIDTH 14.5 % (11.5-14.0); SEGMENTED NEUTROPHILS % (AUTO) 80.9 % (42-78); TOTAL CELLS COUNTED % (AUTO) 100 %; WHITE BLOOD COUNT 6.7 10^3/uL (4.0-10.5)
[2020-06-21 05:47] LABS: VENOUS BLOOD PCO2 79.9 mmHg (35-63)
[2020-06-21 06:09] LABS: ANION GAP 9 (5-19); BLOOD UREA NITROGEN 27 mg/dL (7-20); CALCIUM 9.4 mg/dL (8.4-10.2); CARBON DIOXIDE 36 mmol/L (22-30); CHLORIDE 92 mmol/L (98-107); GLUCOSE 233 mg/dL (75-110); POTASSIUM 4.9 mmol/L (3.6-5.0)
[2020-06-21] MEDS: PANTOPRAZOLE SODIUM 40 MG TABLET.DR PO SCH (06:31)
--- NOTE | 2020-06-21 06:49 | EKG REPORT ---
SEVERITY:- ABNORMAL ECG - SINUS RHYTHM NONSPECIFIC INTRAVENTRICULAR CONDUCTION DELAY BORDERLINE ST DEPRESSION, LATERAL LEADS : Confirmed by: Bon Juárez MD 21-Jun-2020 06:48:59
--- NOTE | 2020-06-21 07:15 | XCELERA REPORT ---
[address] [address] Transthoracic Echocardiogram Report Name: ISAMAR ROBERSON Age: 70 yrs Gender: Male : 1950 Patient Status: Inpatient Patient Location: [address] [place], [place] [id number] Study Date: 06/20/2020 06:42 PM Height: 63 in Weight: 315 lb BSA: 2.3 m2 Procedure: A complete two-dimensional transthoracic echocardiogram was performed (2D, M-mode, spectral and color flow Doppler). The study was technically difficult with many images being suboptimal in quality. The suprasternal notch views were difficult to obtain and are suboptimal in quality. Reason For Study: NSTEMI, Heart failure Ordering Physician: ARACELI BOND Performed By: Angela Alfred Interpretation Summary The left ventricle is mildly dilated. Left ventricular systolic function is normal. The Ejection Fraction estimate is 50-55%. Doppler measurements suggest normal left ventricular diastolic function. Technically difficult study with poor definition of the endocardium however the short axis view does not demonstrate significant regional wall motion abnormalities. Mild MR, mild TR. MMode/2D Measurements & Calculations RVDd: 3.3 cm LVIDd: 5.9 cm FS: 15.6 % Ao root diam: 2.5 cm IVSd: 1.2 cm LVIDs: 5.0 cm EDV(Teich): Ao root area: 175.9 ml LVPWd: 0.85 cm 4.7 cm2 ESV(Teich): LA dimension: 4.0 cm 118.9 ml EF(Teich): 32.4 % LVLd ap4: 6.2 cm SV(MOD-sp4): EDV(MOD-sp4): 43.0 ml 92.0 ml LVLs ap4: 5.2 cm ESV(MOD-sp4): 49.0 ml EF(MOD-sp4): 46.7 % Doppler Measurements & Calculations MV E max benjie: MV P1/2t max benjie: Ao V2 max: LV V1 max P.2 cm/sec 111.3 cm/sec 185.5 cm/sec 4.4 mmHg MV A max benjie: MV P1/2t: 99.9 msec Ao max PG: LV V1 max: 75.0 cm/sec 13.8 mmHg 104.4 cm/sec MVA(P1/2t): 2.2 cm2 MV E/A: 1.3 MV dec slope: 326.3 cm/sec2 MV dec time: 0.20 sec PA V2 max: PI end-d benjie: TR max benjie: MV P1/2t-pr_phl: 107.6 cm/sec 161.6 cm/sec 235.0 cm/sec 99.9 msec PA max PG: TR max P.6 mmHg 22.1 mmHg Left Ventricle The left ventricle is mildly dilated. Left ventricular systolic function is normal. The Ejection Fraction estimate is 50-55%. Doppler measurements suggest normal left ventricular diastolic function. Technically difficult study with poor definition of the endocardium however the short axis view does not demonstrate significant regional wall motion abnormalities. Right Ventricle The right ventricle is normal in size, thickness and function. The right ventricular systolic function is normal. Atria The right atrium is normal. The left atrium is mildly dilated. Mitral Valve There is mild mitral leaflet calcification. There is no evidence of mitral valve prolapse. There is no mitral valve stenosis. There is a mild amount of mitral regurgitation. Aortic Valve The aortic valve is moderately calcified. There is no aortic valvular vegetation. There is no aortic valve stenosis. No aortic regurgitation is present. Tricuspid Valve The tricuspid valve is not well visualized, but is grossly normal. There is no tricuspid valve prolapse. There is no tricuspid stenosis. There is a mild amount of tricuspid regurgitation. Pulmonic Valve The pulmonic valve is not well visualized. There is no pulmonic valvular stenosis. There is no pulmonic valvular regurgitation. Effusions There is no pleural effusion. : ARACELI BOND Antonio
[2020-06-21] MEDS ORDERED: CYCLOBENZAPRINE HCL 10 MG TABLET PO PRN (07:59)
[2020-06-21] MEDS ORDERED: INSULIN NPH (ISOPHANE), HUMAN 100 UNIT/ML 3 ML SUBCUT SCH (08:00)
[2020-06-21] MEDS: INSULIN NPH (ISOPHANE), HUMAN 100 UNIT/ML 3 ML SUBCUT SCH ×2 (08:37→16:49)
[2020-06-21] MEDS: INSULIN LISPRO 100 UNIT/ML 3 ML VIAL SUBCUT SCH ×4 (08:38→21:31)
[2020-06-21 08:45] LABS: FREE T3 2.87 pg/mL (2.77-5.27); FREE T4 (FREE THYROXINE) 0.9 ng/dL (0.78-2.19)
[2020-06-21] MEDS: BENAZEPRIL HCL 20 MG TABLET PO SCH (09:52)
[2020-06-21] MEDS: CARVEDILOL 12.5 MG TABLET PO SCH ×2 (09:52→21:30)
[2020-06-21] MEDS: FINASTERIDE 5 MG TABLET PO SCH (09:52)
[2020-06-21] MEDS: CLOPIDOGREL BISULFATE 75 MG TABLET PO SCH (09:52)
[2020-06-21] MEDS: ASPIRIN 81 MG TABLET, CHEWABLE PO SCH (09:52)
[2020-06-21] MEDS: TERBINAFINE HCL 250 MG TABLET PO SCH (09:53)
[2020-06-21] MEDS: DULOXETINE HCL 30 MG CAPSULE.DR PO SCH ×2 (09:53→21:29)
[2020-06-21] MEDS: ENOXAPARIN SODIUM INJ 150 MG/1 ML DISP.SYRIN SUBCUT SCH ×2 (09:54→21:38)
[2020-06-21] MEDS: FUROSEMIDE INJ/PF 40 MG/4 ML SDV IV SCH (09:54)
[2020-06-21] MEDS ORDERED: MELOXICAM 7.5 MG TABLET PO SCH (10:00)
[2020-06-21] MEDS ORDERED: MELOXICAM 15 MG TABLET PO SCH (10:00)
--- NOTE | 2020-06-21 10:06 | PDOC CONSULTATION ---
Consultation Consult Date: 06/21/20 Attending physician:: ARACELI BOND Provider Consulted: SONIA VALENTINE Consult reason:: NSTEMI History of Present Illness Admission Date/PCP: 06/20/20 16:27 NELY MEDEROS History of Present Illness: ISAMAR ROBERSON is a 70 year old male with history of CAD s/p remote CABG, HF, HTN, HLD, DM, tobacco use and morbid obesity who is consulted to our service for evaluation of NSTEMI. The patient presented yesterday to our ED via EMS complaining of shortness of breath for at least one 1 week. Unfortunately he is a very poor historian and cannot give me any details regarding his present or past history. He did sat he had been feeling weak and short of breath for at least one week. He endorsed chest pain yesterday that lasted approximately 6 hours but cannot be more specific about it. He has remained chest pain free si nce admission however his troponin was positive, peaked at 3.99 and is now downtrending. He is currently a DNR. His telemetry shows NSR without sustained dysrhythmias. Physical exam on 06/21/20: GENERAL: Sitting in recliner, sleeping but easily arousable, on BiPAP. Not in acute distress. Morbidly obese. HEENT: Normocephalic, atraumatic. Pupils equal. Sclerae anicteric. NECK: Difficult to evaluate for JVD secondary to his body habitus. No carotid bruits. LUNGS: Clear to auscultation bilaterally. CARDIOVASCULAR: Regular rate and rhythm, normal S1 and S2 without murmurs, rubs, or gallops. PMI not displaced. EXTREMITIES: Non-pitting edema bilaterally to include dorsum of both feet, erythematous, no cyanosis, no clubbing. SKIN: No lesions or rashes. MUSCULOSKELETAL: No chest tenderness to palpation. NEUROLOGIC: Nonfocal. No gross sensory or motor deficits bilateral upper or lower extremities. Cardiac studies: Echocardiogram on 06/20/2020 at [facility]: -Mild LVE. -EF 50 to 55%. -No gross wall motion abnormalities. -Mild MR, mild TR. Past Medical History Cardiac Medical History: Reports: Coronary Artery Disease, Myocardial Infarction - 35 YEARS, Hyperlipidema, Hypertension Pulmonary Medical History: Denies: Asthma, Chronic Obstructive Pulmonary Disease (COPD), Sleep Apnea - Patient denies sleep apnea Neurological Medical History: Denies: Seizures Endocrine Medical History: Reports: Diabetes Mellitus Type 2 GI Medical History: Reports: Gastroesophageal Reflux Disease Denies: Hepatitis, Hiatal Hernia Psychiatric Medical History: Denies: Depression Hematology: Denies: Anemia, Sickle Cell Disease Infectious Medical History: Denies: Clostridium Difficile Past Surgical History Past Surgical History: Reports: Cholecystectomy, Coronary Artery Bypass Graft Denies: Pacemaker Social History Lives with: Spouse/Significant other Smoking Status: Former Smoker Electronic Cigarette use?: No Frequency of Alcohol Use: None Hx Recreational Drug Use: No Drugs: None Hx Prescription Drug Abuse: No - Advance Directive Resuscitation Status: Do Not Resuscitate Family History Family History: Reviewed & Not Pertinent Parental Family History Reviewed: Yes Children Family History Reviewed: Yes Sibling(s) Family History Reviewed.: Yes Medication/Allergy Home Medications: Amlodipine Besylate [Norvasc 10 mg Tablet] 10 mg PO DAILY 06/25/19 Benazepril HCl [Lotensin] 40 mg PO DAILY 06/25/19 Carvedilol [Coreg 25 mg Tablet] 25 mg PO Q12 06/25/19 Meloxicam [Mobic] 15 mg PO DAILY 06/25/19 Metformin HCl [Glucophage] 1,000 mg PO BID 06/25/19 Tamsulosin HCl [Flomax 0.4 mg Cap.sr] 0.4 mg PO DAILY 06/25/19 Duloxetine HCl [Cymbalta] 60 mg PO BID 04/26/20 Glipizide [Glucotrol 10 mg Tablet] 20 mg PO DAILY 04/26/20 Insulin NPH Human Isophane [Novolin N Flexpen] 34 unit SQ BID 04/26/20 Atorvastatin Calcium [Lipitor 40 mg Tablet] 40 mg PO QHS #30 tablet 04/29/20 Finasteride [Proscar 5 mg Tablet] 5 mg PO DAILY #30 tablet 04/29/20 Furosemide [Lasix] 20 mg PO DAILY #30 tablet 04/29/20 Tramadol HCl [Ultram] 100 mg PO TIDP PRN #0 04/29/20 Aspirin [Aspirin 81 mg Chewable Tablet] 81 mg PO QAM 06/20/20 Cyclobenzaprine HCl [Flexeril 10 mg Tablet] 10 mg PO TIDP PRN 06/20/20 Terbinafine HCl [Lamisil 250 mg Tablet] 250 mg PO DAILY 06/20/20 Allergies/Adverse Reactions: iodine Allergy (Verified 03/17/18 11:05) Iodinated Contrast Media Adverse Reaction (Verified 04/26/20 00:10) Hives Physical Exam Vital Signs: Temp Pulse Resp BP Pulse Ox 97.5 F 96 27 H 138/71 H 98 06/21/20 03:35 06/21/20 03:35 06/21/20 04:15 06/21/20 03:35 06/21/20 04:15 Intake & Output 06/20/20 06/21/20 06/22/20 06:59 06:59 06:59 Output Total 2100 Balance -2100 Weight 146 kg Results Laboratory Results: 06/21/20 05:28 06/21/20 05:28 06/20/20 06/20/20 06/20/20 12:40 12:40 16:15 WBC 8.0 RBC 4.36 Hgb 12.5 L Hct 38.2 MCV 88 MCH 28.7 MCHC 32.7 RDW 14.3 H Plt Count 193 Seg Neutrophils % 67.8 VBG pH VBG pCO2 VBG HCO3 VBG Base Excess Sodium 139.9 Potassium 4.8 Chloride 97 L Carbon Dioxide 37 H Anion Gap 6 BUN 32 H Creatinine 0.76 Est GFR ( Amer) > 60 Glucose 177 H Calcium 9.8 Phosphorus Total Bilirubin 0.5 AST 26 Alkaline Phosphatase 69 Total Protein 6.5 Albumin 3.7 TSH Urine Color YELLOW Urine Appearance SLIGHTLY-CLOUDY Urine pH 5.0 Ur Specific [place] 1.021 Urine Protein NEGATIVE Urine Glucose (UA) NEGATIVE Urine Ketones NEGATIVE Urine Blood SMALL H Urine Nitrite NEGATIVE Ur Leukocyte Esterase TRACE H Urine WBC (Auto) 3 Urine RBC (Auto) 19 06/20/20 06/20/20 06/21/20 18:03 21:38 05:28 WBC 6.7 RBC 4.32 L Hgb 12.5 L Hct 37.6 L MCV 87 MCH 28.9 MCHC 33.2 RDW 14.5 H Plt Count 169 Seg Neutrophils % 80.9 H VBG pH 7.22 L 7.26 L VBG pCO2 100.7 H* 95.1 H* VBG HCO3 40.0 H 42.0 H VBG Base Excess 5.7 10.9 Sodium Potassium Chloride Carbon Dioxide Anion Gap BUN Creatinine Est GFR ( Amer) Glucose Calcium Phosphorus Total Bilirubin AST Alkaline Phosphatase Total Protein Albumin TSH Urine Color Urine Appearance Urine pH Ur Specific [place] Urine Protein Urine Glucose (UA) Urine Ketones Urine Blood Urine Nitrite Ur Leukocyte Esterase Urine WBC (Auto) Urine RBC (Auto) 06/21/20 06/21/20 06/21/20 05:28 05:28 05:28 WBC RBC Hgb Hct MCV MCH MCHC RDW Plt Count Seg Neutrophils % VBG pH 7.29 L VBG pCO2 79.9 H* VBG HCO3 37.1 H VBG Base Excess 7.6 Sodium 137.4 Potassium 4.9 Chloride 92 L Carbon Dioxide 36 H Anion Gap 9 BUN 27 H Creatinine 0.66 Est GFR ( Amer) > 60 Glucose 233 H Calcium 9.4 Phosphorus 4.0 Total Bilirubin AST Alkaline Phosphatase Total Protein Albumin TSH 0.36 L Urine Color Urine Appearance Urine pH Ur Specific [place] Urine Protein Urine Glucose (UA) Urine Ketones Urine Blood Urine Nitrite Ur Leukocyte Esterase Urine WBC (Auto) Urine RBC (Auto) 06/20/20 06/20/20 06/20/20 12:40 12:40 15:40 Creatine Kinase 243 H CK-MB (CK-2) 27.60 H Troponin I 2.430 Cancelled NT-Pro-B Natriuret Pep 1470 H 06/20/20 06/20/20 06/21/20 18:03 21:38 00:45 Creatine Kinase CK-MB (CK-2) Troponin I 3.920 3.990 3.110 NT-Pro-B Natriuret Pep Impressions: Chest X-Ray 06/20/20 12:56 IMPRESSION: NO ACUTE RADIOGRAPHIC FINDING IN THE CHEST. 06/21/20 05:28 06/21/20 05:28 MCV 87 fl (80-97) 06/21/20 05:28 MCH 28.9 pg (27.0-33.4) 06/21/20 05:28 MCHC 33.2 g/dL (32.0-36.0) 06/21/20 05:28 RDW 14.5 % (11.5-14.0) H 06/21/20 05:28 Seg Neutrophils % 80.9 % (42-78) H 06/21/20 05:28 VBG pH 7.29 (7.30-7.42) L 06/21/20 05:28 VBG pCO2 79.9 mmHg (35-63) H* 11/07/20 05:28 VBG HCO3 37.1 mmol/L (20-32) H 06/21/20 05:28 VBG Base Excess 7.6 mmol/L 06/21/20 05:28 Chloride 92 mmol/L (98-107) L 06/21/20 05:28 Carbon Dioxide 36 mmol/L (22-30) H 06/21/20 05:28 Anion Gap 9 (5-19) 06/21/20 05:28 Est GFR ( Amer) > 60 (>60) 06/21/20 05:28 Glucose 233 mg/dL (75-110) H 06/21/20 05:28 Calcium 9.4 mg/dL (8.4-10.2) 06/21/20 05:28 Phosphorus 4.0 mg/dL (2.5-4.5) 06/21/20 05:28 Total Bilirubin 0.5 mg/dL (0.2-1.3) 06/20/20 12:40 AST 26 U/L (17-59) 06/20/20 12:40 Alkaline Phosphatase 69 U/L (38-126) 06/20/20 12:40 Total Protein 6.5 g/dL (6.3-8.2) 06/20/20 12:40 Albumin 3.7 g/dL (3.5-5.0) 06/20/20 12:40 TSH 0.36 uIU/mL (0.47-4.68) L 06/21/20 05:28 Urine Color YELLOW 06/20/20 16:15 Urine Appearance SLIGHTLY-CLOUDY 06/20/20 16:15 Urine pH 5.0 (5.0-9.0) 06/20/20 16:15 Ur Specific [place] 1.021 06/20/20 16:15 Urine Protein NEGATIVE mg/dL (NEGATIVE) 06/20/20 16:15 Urine Glucose (UA) NEGATIVE mg/dL (NEGATIVE) 06/20/20 16:15 Urine Ketones NEGATIVE mg/dL (NEGATIVE) 06/20/20 16:15 Urine Blood SMALL (NEGATIVE) H 06/20/20 16:15 Urine Nitrite NEGATIVE (NEGATIVE) 06/20/20 16:15 Ur Leukocyte Esterase TRACE (NEGATIVE) H 06/20/20 16:15 Urine WBC (Auto) 3 /HPF 06/20/20 16:15 Urine RBC (Auto) 19 /HPF 06/20/20 16:15 06/20/20 06/20/20 06/20/20 12:40 12:40 15:40 Creatine Kinase 243 H CK-MB (CK-2) 27.60 H Troponin I 2.430 Cancelled NT-Pro-B Natriuret Pep 1470 H 06/20/20 06/20/20 06/21/20 18:03 21:38 00:45 Creatine Kinase CK-MB (CK-2) Troponin I 3.920 3.990 3.110 NT-Pro-B Natriuret Pep Current Medication List Generic Name Dose Route Start Last Admin Trade Name Freq PRN Reason Stop Dose Admin Acetaminophen 975 mg 06/20/20 18:05 Tylenol 325 Mg Tablet PO 07/20/20 18:04 Q4HP PRN FOR PAIN SCALE 1-3 Al Hydrox/Mg Hydrox/Simethicone 15 ml 06/20/20 17:37 Maalox Plus Susp 30 Udcup PO 07/20/20 17:36 Q6HP PRN HEARTBURN Albuterol 1.25 mg 06/20/20 20:24 Ventolin 0.042% Neb 1.25 Mg/3 Ml Ampul NEB 07/20/20 20:23 RTQ6HP PRN SHORTNESS OF BREATH Albuterol/Ipratropium 3 ml 06/21/20 02:00 06/21/20 01:44 Duoneb 3 Ml Ampul NEB 07/21/20 01:59 3 ml RTQ6 [facility] Administration Aspirin 81 mg 06/21/20 10:00 Aspirin 81 Mg Chewable Tablet PO 07/21/20 09:59 DAILY [facility]ON Atorvastatin Calcium 40 mg 06/20/20 22:00 06/20/20 21:38 Lipitor 40 Mg Tablet PO 07/20/20 21:59 40 mg QHS MASON Administration Benazepril HCl 40 mg 06/21/20 10:00 Lotensin 20 Mg Tablet PO 07/21/20 09:59 DAILY [facility]ON Carvedilol 12.5 mg 06/20/20 22:00 06/20/20 21:38 Coreg 12.5 Mg Tablet PO 07/20/20 21:59 12.5 mg Q12 MASON Administration Clopidogrel Bisulfate 75 mg 06/21/20 10:00 Plavix 75 Mg Tablet PO 07/21/20 09:59 DAILY [facility]ON Dextrose 25 gm 06/20/20 18:08 Dextrose Inj 50% Syringe (25 Gm/50 Ml) IV 07/20/20 18:07 PRN PRN PER PROTOCOL Protocol Dextrose 12.5 gm 06/20/20 18:08 Dextrose Inj 50% Syringe (25 Gm/50 Ml) IV 07/20/20 18:07 PRN PRN FOR BG 50-69 IN ALERT PATIENT Protocol Duloxetine HCl 60 mg 06/20/20 22:00 06/20/20 21:38 Cymbalta 30 Mg Capsule. PO 07/20/20 21:59 60 mg Q12 [facility]ON Administration Enoxaparin Sodium 140 mg 06/20/20 22:00 06/20/20 21:39 Lovenox Inj 150 Mg/1 Ml Disp.Syrin SUBCUT 07/20/20 21:59 140 mg Q12 [facility]ON Administration Finasteride 5 mg 06/21/20 10:00 Proscar 5 Mg Tablet PO 07/21/20 09:59 DAILY [facility]ON Furosemide 40 mg 06/21/20 10:00 Lasix Inj/Pf 40 Mg/4 Ml Sdv IV 07/21/20 09:59 DAILY [facility]ON Glucagon 1 mg 06/20/20 18:08 Glucagen Inj 1 Mg Vial IM 07/20/20 18:07 PRN PRN Evaluate for BG < 70 Protocol Glucose 15 gm 06/20/20 18:08 Glutose 40% Gel 15 Gm Tube PO 07/20/20 18:07 PRN PRN FOR BG 50-69 IN ALERT PATIENT Protocol Glucose 30 gm 06/20/20 18:08 Glutose 40% Gel 15 Gm Tube PO 07/20/20 18:07 PRN PRN FOR BG < 50 IN ALERT PATIENT Protocol Insulin Human Lispro 0 - 12 unit 06/20/20 22:00 06/20/20 21:39 Humalog Insulin 100 Unit/1 Ml 3 Ml Vial SUBCUT 07/20/20 21:59 Not Given ACHS [facility] Protocol Insulin Human NPH 30 unit 06/21/20 08:00 Humulin N (Nph) Insulin 100 Unit/1 Ml 3 Ml SUBCUT 07/21/20 07:59 BIDACBS [facility] Meloxicam 7.5 mg 06/21/20 10:00 Mobic 7.5 Mg Tablet PO 07/21/20 09:59 DAILY [facility]ON Nitroglycerin 1 tab 06/20/20 18:30 Nitrostat 0.4 Mg (1/150 Gr) Tabs 25/Bottle SL 07/20/20 18:29 Q5MP PRN FOR CHEST PAIN Ondansetron HCl 4 mg 06/20/20 17:37 Zofran Inj/Pf 4 Mg/2 Ml Sdv IV 07/20/20 17:36 Q8HP PRN FOR NAUSEA/VOMITING Pantoprazole Sodium 40 mg 06/21/20 06:00 06/21/20 06:[address] Tablet PO 07/21/20 05:59 40 mg Q6AM [facility] Administration Tamsulosin HCl 0.4 mg 06/21/20 18:00 Flomax 0.4 Mg Cap.Sr PO 07/21/20 17:59 PCSUPPER [facility] Tramadol HCl 50 mg 06/20/20 18:01 Ultram 50 Mg Tablet PO 06/27/20 18:00 Q8HP PRN FOR PAIN SCALE 4-5 Discontinued Medications Generic Name Dose Route Start Last Admin Trade Name Freq PRN Reason Stop Dose Admin Albuterol/Ipratropium 3 ml 06/20/20 21:00 06/20/20 20:35 Duoneb 3 Ml Ampul NEB 06/20/20 21:01 3 ml RTNOW ONE Administration Aspirin 324 mg 06/20/20 14:24 06/20/20 14:41 Aspirin 81 Mg Chewable Tablet PO 06/20/20 14:25 324 mg NOW ONE Administration Clopidogrel Bisulfate 75 mg 06/20/20 18:30 06/20/20 21:42 Plavix 75 Mg Tablet PO 06/20/20 18:31 Not Given NOW ONE Clopidogrel Bisulfate 75 mg 06/20/20 22:00 06/20/20 21:38 Plavix 75 Mg Tablet PO 06/20/20 22:01 75 mg NOW ONE Administration Furosemide 40 mg 06/20/20 18:30 06/20/20 21:42 Lasix Inj/Pf 40 Mg/4 Ml Sdv IV 06/20/20 18:31 Not Given NOW ONE Furosemide 40 mg 06/20/20 22:00 06/20/20 21:39 Lasix Inj/Pf 40 Mg/4 Ml Sdv IV 06/20/20 22:01 40 mg NOW ONE Administration Insulin Human NPH 15 unit 06/20/20 19:00 06/20/20 21:14 Humulin N (Nph) Insulin 100 Unit/1 Ml 3 Ml SUBCUT 06/20/20 19:01 Not Given NOW ONE Methylprednisolone Sodium Succinate 40 mg 06/20/20 21:30 06/20/20 21:38 Solu-Medrol Inj/Pf 40 Mg/1 Ml Sdv IV 06/20/20 21:31 40 mg NOW ONE Administration Nitroglycerin 1 each 06/20/20 14:47 06/20/20 15:50 Nitro-Dur 10 Mg (0.4mg/Hr) Transdermal Patch TD 06/20/20 14:48 1 each NOW ONE Administration Assessment & Plan - Diagnosis (1) Coronary artery disease Qualifiers: Coronary Disease-Associated Artery/Lesion type: tangirnaq artery Associated angina: with unspecified angina Is this a current diagnosis for this admission?: Yes Plan: 70y/o male with multiple comorbidities who was admitted with chest pain and dyspnea. His cardiac troponin is positive consistent with a NSTEMI and has remained hemodynamically and electrically stable without recurrence of index chest pain or HF symptoms. He is currently on GDMT. The patient is currently a DNR however I did offer him further cardiac w/u with [facility] however the patient wants to speak to his regarding this procedure prior to making a final decision. If he does opt for [facility], we will have to transfer the patient to [facility] due to his prior history of requiring anesthesia assistance for procedures that require the supine position for some time. Recommendations: -Continue with current management. -Increase lipitor to 80 mg qHS. -Will continue to follow with you. (2) Hyperlipidemia Is this a current diagnosis for this admission?: Yes Plan: Increase lipitor to 80mg qhs. (3) Heart failure with preserved ejection fraction Plan: The patient appears to be mildly fluid overloaded. Recommendations: -Continue with current diuretic regimen. -Strict intake and output. -Restrict fluid intake to 1.5 liters daily. -Low sodium diet. -Daily BMP, Mg and replace electrolytes as needed. (4) Hypertension Qualifiers: Hypertension type: essential hypertension Qualified Code(s): I10 - Essential (primary) hypertension Is this a current diagnosis for this admission?: Yes Plan: At goal. Recommendations: -Continue with current management.
[2020-06-21] MEDS: MELOXICAM 7.5 MG TABLET PO SCH (12:27)
--- NOTE | 2020-06-21 12:57 | PDOC PROGRESS REPORT ---
Subjective Progress Note for:: 06/21/20 Subjective:: Patient states his breathing feels better. He still notably on the BiPAP. He was able to eat breakfast. He is not having any chest pain at this time. Currently not hallucinating. Reason For Visit: NSTEMI,HEART FAILURE Physical Exam Vital Signs: Temp Pulse Resp BP Pulse Ox 97.5 F 85 20 125/90 H 95 06/21/20 09:11 06/21/20 08:49 06/21/20 08:49 06/21/20 08:30 06/21/20 08:49 Intake & Output 06/20/20 06/21/20 06/22/20 06:59 06:59 06:59 Output Total 2100 Balance -2100 Weight 146 kg General appearance: PRESENT: no acute distress, cooperative, morbidly obese. ABSENT: disheveled, hard of hearing Head exam: PRESENT: normocephalic Neck exam: ABSENT: JVD Respiratory exam: PRESENT: decreased breath sounds, symmetrical, unlabored. ABSENT: accessory muscle use, retraction, stridor, tachypnea, wheezes Cardiovascular exam: PRESENT: RRR, +S1, +S2. ABSENT: tachycardia GI/Abdominal exam: PRESENT: soft. ABSENT: rebound, rigid, tenderness Extremities exam: PRESENT: other - 3+ nonpitting bilateral lower extremity edema Neurological exam: PRESENT: alert, awake, oriented to person, oriented to place, oriented to time, oriented to situation Psychiatric exam: ABSENT: agitated, anxious Focused psych exam: ABSENT: internal stimuli Results Laboratory Results: 06/21/20 05:28 06/21/20 05:28 06/20/20 06/20/20 06/20/20 12:40 12:40 16:15 WBC 8.0 RBC 4.36 Hgb 12.5 L Hct 38.2 MCV 88 MCH 28.7 MCHC 32.7 RDW 14.3 H Plt Count 193 Seg Neutrophils % 67.8 VBG pH VBG pCO2 VBG HCO3 VBG Base Excess Sodium 139.9 Potassium 4.8 Chloride 97 L Carbon Dioxide 37 H Anion Gap 6 BUN 32 H Creatinine 0.76 Est GFR ( Amer) > 60 Glucose 177 H Calcium 9.8 Phosphorus Total Bilirubin 0.5 AST 26 Alkaline Phosphatase 69 Total Protein 6.5 Albumin 3.7 TSH Free T4 Free T3 pg/mL Urine Color YELLOW Urine Appearance SLIGHTLY-CLOUDY Urine pH 5.0 Ur Specific [place] 1.021 Urine Protein NEGATIVE Urine Glucose (UA) NEGATIVE Urine Ketones NEGATIVE Urine Blood SMALL H Urine Nitrite NEGATIVE Ur Leukocyte Esterase TRACE H Urine WBC (Auto) 3 Urine RBC (Auto) 19 06/20/20 06/20/20 06/21/20 18:03 21:38 05:28 WBC 6.7 RBC 4.32 L Hgb 12.5 L Hct 37.6 L MCV 87 MCH 28.9 MCHC 33.2 RDW 14.5 H Plt Count 169 Seg Neutrophils % 80.9 H VBG pH 7.22 L 7.26 L VBG pCO2 100.7 H* 95.1 H* VBG HCO3 40.0 H 42.0 H VBG Base Excess 5.7 10.9 Sodium Potassium Chloride Carbon Dioxide Anion Gap BUN Creatinine Est GFR ( Amer) Glucose Calcium Phosphorus Total Bilirubin AST Alkaline Phosphatase Total Protein Albumin TSH Free T4 Free T3 pg/mL Urine Color Urine Appearance Urine pH Ur Specific [place] Urine Protein Urine Glucose (UA) Urine Ketones Urine Blood Urine Nitrite Ur Leukocyte Esterase Urine WBC (Auto) Urine RBC (Auto) 06/21/20 06/21/20 06/21/20 05:28 05:28 05:28 WBC RBC Hgb Hct MCV MCH MCHC RDW Plt Count Seg Neutrophils % VBG pH 7.29 L VBG pCO2 79.9 H* VBG HCO3 37.1 H VBG Base Excess 7.6 Sodium 137.4 Potassium 4.9 Chloride 92 L Carbon Dioxide 36 H Anion Gap 9 BUN 27 H Creatinine 0.66 Est GFR ( Amer) > 60 Glucose 233 H Calcium 9.4 Phosphorus 4.0 Total Bilirubin AST Alkaline Phosphatase Total Protein Albumin TSH 0.36 L Free T4 Free T3 pg/mL Urine Color Urine Appearance Urine pH Ur Specific [place] Urine Protein Urine Glucose (UA) Urine Ketones Urine Blood Urine Nitrite Ur Leukocyte Esterase Urine WBC (Auto) Urine RBC (Auto) 06/21/20 05:28 WBC RBC Hgb Hct MCV MCH MCHC RDW Plt Count Seg Neutrophils % VBG pH VBG pCO2 VBG HCO3 VBG Base Excess Sodium Potassium Chloride Carbon Dioxide Anion Gap BUN Creatinine Est GFR ( Amer) Glucose Calcium Phosphorus Total Bilirubin AST Alkaline Phosphatase Total Protein Albumin TSH Free T4 0.90 Free T3 pg/mL 2.87 Urine Color Urine Appearance Urine pH Ur Specific [place] Urine Protein Urine Glucose (UA) Urine Ketones Urine Blood Urine Nitrite Ur Leukocyte Esterase Urine WBC (Auto) Urine RBC (Auto) 06/20/20 06/20/20 06/20/20 12:40 12:40 15:40 Creatine Kinase 243 H CK-MB (CK-2) 27.60 H Troponin I 2.430 Cancelled NT-Pro-B Natriuret Pep 1470 H 06/20/20 06/20/20 06/21/20 18:03 21:38 00:45 Creatine Kinase CK-MB (CK-2) Troponin I 3.920 3.990 3.110 NT-Pro-B Natriuret Pep Impressions: Chest X-Ray 06/20/20 12:56 IMPRESSION: NO ACUTE RADIOGRAPHIC FINDING IN THE CHEST. Assessment and Plan - Diagnosis (1) NSTEMI (non-ST elevated myocardial infarction) Is this a current diagnosis for this admission?: Yes Plan: Therapeutic Lovenox Aspirin Plavix, beta-yann, atorvastatin Troponin peaked at 3.99 then trended down Placed on telemetry Evaluated by cardiology this morning. Will need transfer to tertiary facility on Tuesday for left heart cath if patient is agreeable. (2) Acute on chronic diastolic (congestive) heart failure Is this a current diagnosis for this admission?: Yes Plan: Patient is certainly volume overloaded Repeat echocardiogram showing normal EF of 50 to 55% without clear wall motion abnormality but study was technically suboptimal. Continue daily Lasix IV 40 mg Strict I's and O's and monitor output 1500 cc fluid restriction (3) Acute and chronic respiratory failure with hypercapnia Is this a current diagnosis for this admission?: Yes Plan: Likely from obesity hypoventilation syndrome and/or COPD [never diagnosed before with PFTs but has extensive smoking history] Patient's venous blood gas shows significant CO2 retention yesterday and he was placed on BiPAP. Reviewing his previous labs, he has always had an elevated bicarb which suggests chronicity to his hypercapnic respiratory failure. However acutely decompensated. We will keep on BiPAP for now and repeat VBG later. Bronchodilator treatments. Discharge planning consult placed to get patient NIPPV. (4) Hypoxia Is this a current diagnosis for this admission?: Yes Plan: Patient was recently started on home oxygen 3 L. Chest x-ray shows findings suggestive of chronic interstitial disease. Have discussed with patient about the CT but patient states that he cannot tolerate laying flat for even up to 5 minutes. I have to defer further imaging at this time. He will need PFTs as outpatient. (5) Chronic back pain Is this a current diagnosis for this admission?: Yes (6) Frequent falls Is this a current diagnosis for this admission?: Yes Plan: PT/OT. Highly suspect patient will need SNF. environmental emergencies planner consulted. (7) Hallucinations Is this a current diagnosis for this admission?: Yes Plan: Likely metabolic encephalopathy from CO2 retention. TSH is minimally depressed but free T4 is normal. (8) Hyperglycemia due to diabetes mellitus Is this a current diagnosis for this admission?: Yes Plan: Continue NPH. Resumed glipizide at lower dose. Hold Metformin as he will need cath soon. sliding scale and Accu-Cheks (9) Hypertension Qualifiers: Hypertension type: essential hypertension Qualified Code(s): I10 - E ssential (primary) hypertension Is this a current diagnosis for this admission?: Yes (10) Morbid obesity with BMI of 50.0-59.9, adult Is this a current diagnosis for this admission?: Yes - Plan Summary Summary: Plan discussed with patient and his was at bedside. - Time Time Spent with patient: 25-34 minutes Anticipated Discharge Disposition: Tertiary Anticipated Discharge Timeframe: within 72 hours
[2020-06-21] MEDS ORDERED: GLIPIZIDE 10 MG TABLET PO ONE (13:30)
[2020-06-21] MEDS: TAMSULOSIN HCL 0.4 MG CAP.SR.24H PO SCH (17:51)
[2020-06-21] MEDS: ATORVASTATIN CALCIUM 80 MG TABLET PO SCH (21:31)
[2020-06-21] MEDS ORDERED: ATORVASTATIN CALCIUM 40 MG TABLET PO SCH (22:00)
[2020-06-22] MEDS: IPRATROPIUM/ALBUTEROL 0.5-2.5 MG/3 ML AMPUL NEB SCH ×4 (02:15→20:24)
[2020-06-22] MEDS: PANTOPRAZOLE SODIUM 40 MG TABLET.DR PO SCH (05:38)
[2020-06-22 05:54] LABS: HEMATOCRIT 36.3 % (37.9-51.0); HEMOGLOBIN 12.3 g/dL (13.5-17.0); MEAN CORPUSCULAR HGB CONC 33.8 g/dL (32.0-36.0); MEAN CORPUSCULAR VOLUME 86 fl (80-97); PLATELET COUNT 178 10^3/uL (150-450); RED BLOOD COUNT 4.23 10^6/uL (4.35-5.55); RED CELL DISTRIBUTION WIDTH 14.5 % (11.5-14.0); WHITE BLOOD COUNT 6.6 10^3/uL (4.0-10.5)
[2020-06-22 05:57] LABS: VENOUS BLOOD BASE EXCESS 11.2 mmol/L; VENOUS BLOOD HCO3 38.1 mmol/L (20-32); VENOUS BLOOD PCO2 61.4 mmHg (35-63); VENOUS BLOOD PH 7.41 (7.30-7.42)
[2020-06-22 06:20] LABS: ANION GAP 6 (5-19); BLOOD UREA NITROGEN 27 mg/dL (7-20); CALCIUM 9.4 mg/dL (8.4-10.2); CHLORIDE 94 mmol/L (98-107); GLUCOSE 130 mg/dL (75-110)
[2020-06-22 06:40] LABS: POTASSIUM 3.8 mmol/L (3.6-5.0)
[2020-06-22 06:42] LABS: CARBON DIOXIDE 40 mmol/L (22-30)
--- NOTE | 2020-06-22 07:42 | PDOC PROGRESS REPORT ---
Subjective Progress Note for:: 06/22/20 Subjective:: ISAMAR ROBERSON is a 70 year old male with history of CAD s/p remote CABG, HF, HTN, HLD, DM, tobacco use and morbid obesity who is consulted to our service for evaluation of NSTEMI. The patient presented yesterday to our ED via EMS complaining of shortness of breath for at least one 1 week. Unfortunately he is a very poor historian and cannot give me any details regarding his present or past history. He did sat he had been feeling weak and short of breath for at least one week. He endorsed chest pain yesterday that lasted approximately 6 hours but cannot be more specific about it. He has remained chest pain free since admission however his troponin was positive, peaked at 3.99 and is now downtrending. He is currently a DNR. His telemetry shows NSR without sustained dysrhythmias. 06/22/2020: The patient had an uneventful night and feels much better today. He is diuresing very well and is maintaining a negative fluid balance. He definitely looks a whole lot better today when compared to yesterday, he is fully awake and only on O2 by nasal cannula. He has no cardiovascular complaints. Physical exam on 06/22/20: GENERAL: Sitting in recliner, awake, on O2 by nasal cannula. Not in acute distress. Morbidly obese. Oriented x3. HEENT: Normocephalic, atraumatic. Pupils equal. Sclerae anicteric. NECK: Difficult to evaluate for JVD secondary to his body habitus. No carotid bruits. LUNGS: Clear to auscultation bilaterally. CARDIOVASCULAR: Regular rate and rhythm, normal S1 and S2 without murmurs, rubs, or gallops. PMI not displaced. EXTREMITIES: Non-pitting edema bilaterally to include dorsum of both feet, erythematous, no cyanosis, no clubbing. SKIN: No lesions or rashes. MUSCULOSKELETAL: No chest tenderness to palpation. NEUROLOGIC: Nonfocal. No gross sensory or motor deficits bilateral upper or lower extremities. Cardiac studies: Echocardiogram on 06/20/2020 at [facility]: -Mild LVE. -EF 50 to 55%. -No gross wall motion abnormalities. -Mild MR, mild TR. Reason For Visit: NSTEMI,HEART FAILURE Physical Exam Vital Signs: Temp Pulse Resp BP Pulse Ox 98.1 F 85 16 110/49 L 96 06/22/20 03:46 06/22/20 03:46 06/22/20 03:46 06/22/20 03:46 06/22/20 04:05 Intake & Output 06/20/20 06/21/20 06/22/20 06:59 06:59 06:59 Intake Total 840 Output Total 2099 3050 Balance -2099 Weight 146 kg Results Laboratory Results: 06/22/20 05:24 06/21/20 06/22/20 06/22/20 05:28 05:24 05:24 WBC 6.6 RBC 4.23 L Hgb 12.3 L Hct 36.3 L MCV 86 MCH 29.0 MCHC 33.8 RDW 14.5 H Plt Count 178 VBG pH 7.41 VBG pCO2 61.4 VBG HCO3 38.1 H VBG Base Excess 11.2 Free T4 0.90 Free T3 pg/mL 2.87 06/20/20 06/20/20 06/20/20 12:40 12:40 15:40 Creatine Kinase 243 H CK-MB (CK-2) 27.60 H Troponin I 2.430 Cancelled NT-Pro-B Natriuret Pep 1470 H 06/20/20 06/20/20 06/21/20 18:03 21:38 00:45 Creatine Kinase CK-MB (CK-2) Troponin I 3.920 3.990 3.110 NT-Pro-B Natriuret Pep Impressions: Chest X-Ray 06/20/20 12:56 IMPRESSION: NO ACUTE RADIOGRAPHIC FINDING IN THE CHEST. 06/22/20 05:24 06/22/20 05:24 MCV 86 fl (80-97) 06/22/20 05:24 MCH 29.0 pg (27.0-33.4) 06/22/20 05:24 MCHC 33.8 g/dL (32.0-36.0) 06/22/20 05:24 RDW 14.5 % (11.5-14.0) H 06/22/20 05:24 Seg Neutrophils % 80.9 % (42-78) H 06/21/20 05:28 VBG pH 7.41 (7.30-7.42) 06/22/20 05:24 VBG pCO2 61.4 mmHg (35-63) 06/22/20 05:24 VBG HCO3 38.1 mmol/L (20-32) H 06/22/20 05:24 VBG Base Excess 11.2 mmol/L 06/22/20 05:24 Chloride 94 mmol/L (98-107) L 06/22/20 05:24 Carbon Dioxide 40 mmol/L (22-30) H* 06/22/20 05:24 Anion Gap 6 (5-19) 06/22/20 05:24 Est GFR ( Amer) > 60 (>60) 06/22/20 05:24 Glucose 130 mg/dL (75-110) H 06/22/20 05:24 Calcium 9.4 mg/dL (8.4-10.2) 06/22/20 05:24 Phosphorus 4.0 mg/dL (2.5-4.5) 06/21/20 05:28 Magnesium 1.7 mg/dL (1.6-2.3) 06/22/20 05:24 Total Bilirubin 0.5 mg/dL (0.2-1.3) 06/20/20 12:40 AST 26 U/L (17-59) 06/20/20 12:40 Alkaline Phosphatase 69 U/L (38-126) 06/20/20 12:40 Total Protein 6.5 g/dL (6.3-8.2) 06/20/20 12:40 Albumin 3.7 g/dL (3.5-5.0) 06/20/20 12:40 TSH 0.36 uIU/mL (0.47-4.68) L 06/21/20 05:28 Free T4 0.90 ng/dL (0.78-2.19) 06/21/20 05:28 Free T3 pg/mL 2.87 pg/mL (2.77-5.27) 06/21/20 05:28 Urine Color YELLOW 06/20/20 16:15 Urine Appearance SLIGHTLY-CLOUDY 06/20/20 16:15 Urine pH 5.0 (5.0-9.0) 06/20/20 16:15 Ur Specific [place] 1.021 06/20/20 16:15 Urine Protein NEGATIVE mg/dL (NEGATIVE) 06/20/20 16:15 Urine Glucose (UA) NEGATIVE mg/dL (NEGATIVE) 06/20/20 16:15 Urine Ketones NEGATIVE mg/dL (NEGATIVE) 06/20/20 16:15 Urine Blood SMALL (NEGATIVE) H 06/20/20 16:15 Urine Nitrite NEGATIVE (NEGATIVE) 06/20/20 16:15 Ur Leukocyte Esterase TRACE (NEGATIVE) H 06/20/20 16:15 Urine WBC (Auto) 3 /HPF 06/20/20 16:15 Urine RBC (Auto) 19 /HPF 06/20/20 16:15 06/20/20 06/20/20 06/20/20 12:40 12:40 15:40 Creatine Kinase 243 H CK-MB (CK-2) 27.60 H Troponin I 2.430 Cancelled NT-Pro-B Natriuret Pep 1470 H 06/20/20 06/20/20 06/21/20 18:03 21:38 00:45 Creatine Kinase CK-MB (CK-2) Troponin I 3.920 3.990 3.110 NT-Pro-B Natriuret Pep Current Medication List Generic Name Dose Route Start Last Admin Trade Name Freq PRN Reason Stop Dose Admin Acetaminophen 975 mg 06/20/20 18:05 06/21/20 21:29 Tylenol 325 Mg Tablet PO 07/20/20 18:04 975 mg Q4HP PRN Administration FOR PAIN SCALE 1-3 Al Hydrox/Mg Hydrox/Simethicone 15 ml 06/20/20 17:37 Maalox Plus Susp 30 Udcup PO 07/20/20 17:36 Q6HP PRN HEARTBURN Albuterol 1.25 mg 06/20/20 20:24 Ventolin 0.042% Neb 1.25 Mg/3 Ml Ampul NEB 07/20/20 20:23 RTQ6HP PRN SHORTNESS OF BREATH Albuterol/Ipratropium 3 ml 06/21/20 02:00 06/22/20 02:15 Duoneb 3 Ml Ampul NEB 07/21/20 01:59 3 ml RTQ6 MASON Administration Aspirin 81 mg 06/21/20 10:00 06/21/20 09:52 Aspirin 81 Mg Chewable Tablet PO 07/21/20 09:59 81 mg DAILY MASON Administration Atorvastatin Calcium 80 mg 06/21/20 22:00 06/21/20 21:31 Lipitor 80 Mg Tablet PO 07/21/20 21:59 80 mg QHS MASON Administration Benazepril HCl 40 mg 06/21/20 10:00 06/21/20 09:52 Lotensin 20 Mg Tablet PO 07/21/20 09:59 40 mg DAILY MASON Administration Carvedilol 12.5 mg 06/20/20 22:00 06/21/20 21:30 Coreg 12.5 Mg Tablet PO 07/20/20 21:59 12.5 mg Q12 MASON Administration Clopidogrel Bisulfate 75 mg 06/21/20 10:00 06/21/20 09:52 Plavix 75 Mg Tablet PO 07/21/20 09:59 75 mg DAILY MASON Administration Cyclobenzaprine HCl 10 mg 06/21/20 07:59 Flexeril 10 Mg Tablet PO 07/21/20 07:58 TIDP PRN MUSCLE SPASMS Dextrose 25 gm 06/20/20 18:08 Dextrose Inj 50% Syringe (25 Gm/50 Ml) IV 07/20/20 18:07 PRN PRN PER PROTOCOL Protocol Dextrose 12.5 gm 06/20/20 18:08 Dextrose Inj 50% Syringe (25 Gm/50 Ml) IV 07/20/20 18:07 PRN PRN FOR BG 50-69 IN ALERT PATIENT Protocol Duloxetine HCl 60 mg 06/20/20 22:00 06/21/20 21:29 Cymbalta 30 Mg Capsule.Dr PO 07/20/20 21:59 60 mg Q12 MASON Administration Enoxaparin Sodium 140 mg 06/20/20 22:00 06/21/20 21:38 Lovenox Inj 150 Mg/1 Ml Disp.Syrin SUBCUT 07/20/20 21:59 140 mg Q12 MASON Administration Finasteride 5 mg 06/21/20 10:00 06/21/20 09:52 Proscar 5 Mg Tablet PO 07/21/20 09:59 5 mg DAILY MASON Administration Furosemide 40 mg 06/21/20 10:00 06/21/20 09:54 Lasix Inj/Pf 40 Mg/4 Ml Sdv IV 07/21/20 09:59 40 mg DAILY MASON Administration Glipizide 10 mg 06/22/20 08:00 Glucotrol 10 Mg Tablet PO 07/22/20 07:59 QAM MASON Glucagon 1 mg 06/20/20 18:08 Glucagen Inj 1 Mg Vial IM 07/20/20 18:07 PRN PRN Evaluate for BG < 70 Protocol Glucose 15 gm 06/20/20 18:08 Glutose 40% Gel 15 Gm Tube PO 07/20/20 18:07 PRN PRN FOR BG 50-69 IN ALERT PATIENT Protocol Glucose 30 gm 06/20/20 18:08 Glutose 40% Gel 15 Gm Tube PO 07/20/20 18:07 PRN PRN FOR BG < 50 IN ALERT PATIENT Protocol Insulin Human Lispro 0 - 12 unit 06/20/20 22:00 06/21/20 21:31 Humalog Insulin 100 Unit/1 Ml 3 Ml Vial SUBCUT 07/20/20 21:59 2 unit ACHS MASON Administration Protocol Insulin Human NPH 35 unit 06/21/20 09:00 06/21/20 16:49 Humulin N (Nph) Insulin 100 Unit/1 Ml 3 Ml SUBCUT 07/21/20 08:59 35 unit BIDACBS MASON Administration Meloxicam 7.5 mg 06/21/20 10:00 06/21/20 12:27 Mobic 7.5 Mg Tablet PO 07/21/20 09:59 7.5 mg DAILY MASON Administration Nitroglycerin 1 tab 06/20/20 18:30 Nitrostat 0.4 Mg (1/150 Gr) Tabs 25/Bottle SL 07/20/20 18:29 Q5MP PRN FOR CHEST PAIN Ondansetron HCl 4 mg 06/20/20 17:37 Zofran Inj/Pf 4 Mg/2 Ml Sdv IV 07/20/20 17:36 Q8HP PRN FOR NAUSEA/VOMITING Pantoprazole Sodium 40 mg 06/21/20 06:00 06/22/20 05:[address] Tablet PO 07/21/20 05:59 40 mg Q6AM MASON Administration Tamsulosin HCl 0.4 mg 06/21/20 18:00 06/21/20 17:51 Flomax 0.4 Mg Cap.Sr PO 07/21/20 17:59 0.4 mg PCSUPPER MASON Administration Terbinafine HCl 250 mg 06/21/20 10:00 06/21/20 09:53 Lamisil 250 Mg Tablet PO 06/28/20 09:59 250 mg DAILY MASON Administration Tramadol HCl 50 mg 06/20/20 18:01 Ultram 50 Mg Tablet PO 06/27/20 18:00 Q8HP PRN FOR PAIN SCALE 4-5 Discontinued Medications Generic Name Dose Route Start Last Admin Trade Name Margarito PRN Reason Stop Dose Admin Albuterol/Ipratropium 3 ml 06/20/20 21:00 06/20/20 20:35 Duoneb 3 Ml Ampul NEB 06/20/20 21:01 3 ml RTNOW ONE Administration Aspirin 324 mg 06/20/20 14:24 06/20/20 14:41 Aspirin 81 Mg Chewable Tablet PO 06/20/20 14:25 324 mg NOW ONE Administration Atorvastatin Calcium 40 mg 06/20/20 22:00 06/20/20 21:38 Lipitor 40 Mg Tablet PO 07/20/20 21:59 40 mg QHS MASON Administration Clopidogrel Bisulfate 75 mg 06/20/20 18:30 06/20/20 21:42 Plavix 75 Mg Tablet PO 06/20/20 18:31 Not Given NOW ONE Clopidogrel Bisulfate 75 mg 06/20/20 22:00 06/20/20 21:38 Plavix 75 Mg Tablet PO 06/20/20 22:01 75 mg NOW ONE Administration Furosemide 40 mg 06/20/20 18:30 06/20/20 21:42 Lasix Inj/Pf 40 Mg/4 Ml Sdv IV 06/20/20 18:31 Not Given NOW ONE Furosemide 40 mg 06/20/20 22:00 06/20/20 21:39 Lasix Inj/Pf 40 Mg/4 Ml Sdv IV 06/20/20 22:01 40 mg NOW ONE Administration Glipizide 10 mg 06/21/20 13:30 06/21/20 13:26 Glucotrol 10 Mg Tablet PO 06/21/20 13:31 10 mg NOW ONE Administration Insulin Human NPH 30 unit 06/21/20 08:00 06/21/20 10:32 Humulin N (Nph) Insulin 100 Unit/1 Ml 3 Ml SUBCUT 07/21/20 07:59 Not Given BIDACBS MASON Insulin Human NPH 15 unit 06/20/20 19:00 06/20/20 21:14 Humulin N (Nph) Insulin 100 Unit/1 Ml 3 Ml SUBCUT 06/20/20 19:01 Not Given NOW ONE Meloxicam 7.5 mg 06/21/20 10:00 Mobic 7.5 Mg Tablet PO 07/21/20 09:59 DAILY MASON Methylprednisolone Sodium Succinate 40 mg 06/20/20 21:30 06/20/20 21:38 Solu-Medrol Inj/Pf 40 Mg/1 Ml Sdv IV 06/20/20 21:31 40 mg NOW ONE Administration Nitroglycerin 1 each 06/20/20 14:47 06/20/20 15:50 Nitro-Dur 10 Mg (0.4mg/Hr) Transdermal Patch TD 06/20/20 14:48 1 each NOW ONE Administration Assessment & Plan - Diagnosis (1) Coronary artery disease Qualifiers: Coronary Disease-Associated Artery/Lesion type: [place] artery Associated angina: with unspecified angina Is this a current diagnosis for this admission?: Yes Plan: 70y/o male with multiple comorbidities who was admitted with chest pain and dyspnea. His cardiac troponin is positive consistent with a NSTEMI and has remained hemodynamically and electrically stable without recurrence of index chest pain or HF symptoms. He is currently on GDMT and much improved since yesterday. He continues to deny ischemic symptoms and his telemetry shows normal sinus rhythm with PVCs and no sustained dysrhythmias. We discussed 1 more time left heart catheterization in the setting of DNR. I discussed with him that if he wants to remain a DNR then the best thing to do is to proceed with medical management of his coronary artery disease as he would be at an elevated risk of complications during the procedure that may require resuscitation. He is currently leaning towards medical management and avoid invasive procedures particularly when he would have to be transferred to [facility] for the procedure to take place. He will further discuss this issue with his this morning and will let us know his final decision. Recommendations: -Continue with current management for ischemic heart disease. -May switch the patient from Lasix IV to p.o. -Further recommendations pending his discussion with his regarding LHC and DNR status. (2) Hyperlipidemia Is this a current diagnosis for this admission?: Yes Plan: Continue with current medical management. (3) Heart failure with preserved ejection fraction Is this a current diagnosis for this admission?: Yes Plan: He looks much better when compared to yesterday. He is maintaining a negative fluid balance. Recommendations: -May switch IV Lasix to p.o. dosing. -Strict intake and output. -Restrict fluid intake to 1.5 liters daily. -Low sodium diet. -Daily BMP, Mg and replace electrolytes as needed. (4) Hypertension Qualifiers: Hypertension type: essential hypertension Qualified Code(s): I10 - Essential (primary) hypertension Is this a current diagnosis for this admission?: Yes Plan: At goal. Recommendations: -Continue with current management.
[2020-06-22] MEDS: INSULIN LISPRO 100 UNIT/ML 3 ML VIAL SUBCUT SCH ×4 (08:05→21:25)
[2020-06-22] MEDS: GLIPIZIDE 10 MG TABLET PO SCH (08:09)
[2020-06-22] MEDS: INSULIN NPH (ISOPHANE), HUMAN 100 UNIT/ML 3 ML SUBCUT SCH ×2 (08:09→16:52)
[2020-06-22] MEDS: ASPIRIN 81 MG TABLET, CHEWABLE PO SCH (11:03)
[2020-06-22] MEDS: CARVEDILOL 12.5 MG TABLET PO SCH ×2 (11:04→21:24)
[2020-06-22] MEDS: DULOXETINE HCL 30 MG CAPSULE.DR PO SCH ×2 (11:04→21:24)
[2020-06-22] MEDS: CLOPIDOGREL BISULFATE 75 MG TABLET PO SCH (11:04)
[2020-06-22] MEDS: BENAZEPRIL HCL 20 MG TABLET PO SCH (11:04)
[2020-06-22] MEDS: FINASTERIDE 5 MG TABLET PO SCH (11:05)
[2020-06-22] MEDS: TERBINAFINE HCL 250 MG TABLET PO SCH (11:06)
[2020-06-22] MEDS: MELOXICAM 7.5 MG TABLET PO SCH (11:06)
[2020-06-22] MEDS: ENOXAPARIN SODIUM INJ 150 MG/1 ML DISP.SYRIN SUBCUT SCH (11:18)
[2020-06-22] MEDS: FUROSEMIDE INJ/PF 40 MG/4 ML SDV IV SCH (11:18)
--- NOTE | 2020-06-22 12:16 | PDOC PROGRESS REPORT ---
Subjective Progress Note for:: 06/22/20 Subjective:: Patient feels a lot better in terms of his breathing today. He is more comfortable. Seen on nasal cannula. He denies any chest pain. Does not feel short of breath at the moment. I had prolonged conversation with him and his about plans for left heart cath. Reason For Visit: NSTEMI,HEART FAILURE Physical Exam Vital Signs: Temp Pulse Resp BP Pulse Ox 98.3 F 98 17 146/68 H 93 06/22/20 10:57 06/22/20 10:57 06/22/20 10:57 06/22/20 10:57 06/22/20 10:57 Intake & Output 06/21/20 06/22/20 06/23/20 06:59 06:59 06:59 Intake Total 840 Output Total 2100 3425 Balance -2100 -2585 Weight 146 kg General appearance: PRESENT: no acute distress, cooperative, morbidly obese Neck exam: ABSENT: JVD Respiratory exam: PRESENT: decreased breath sounds, symmetrical, unlabored. ABSENT: accessory muscle use, crackles, rales, retraction, tachypnea, wheezes Cardiovascular exam: PRESENT: RRR, +S1, +S2. ABSENT: tachycardia GI/Abdominal exam: PRESENT: soft. ABSENT: distended, firm, guarding, rebound, rigid, tenderness Extremities exam: PRESENT: +2 edema - non pitting edema b/l Neurological exam: PRESENT: alert, awake, oriented to person, oriented to place, oriented to time, oriented to situation Results Laboratory Results: 06/22/20 05:24 06/22/20 05:24 06/22/20 06/22/20 06/22/20 05:24 05:24 05:24 WBC 6.6 RBC 4.23 L Hgb 12.3 L Hct 36.3 L MCV 86 MCH 29.0 MCHC 33.8 RDW 14.5 H Plt Count 178 VBG pH 7.41 VBG pCO2 61.4 VBG HCO3 38.1 H VBG Base Excess 11.2 Sodium 139.5 Potassium 3.8 D Chloride 94 L Carbon Dioxide 40 H* Anion Gap 6 BUN 27 H Creatinine 0.74 Est GFR ( Amer) > 60 Glucose 130 H Calcium 9.4 Magnesium 1.7 06/20/20 06/20/20 06/20/20 12:40 12:40 15:40 Creatine Kinase 243 H CK-MB (CK-2) 27.60 H Troponin I 2.430 Cancelled NT-Pro-B Natriuret Pep 1470 H 06/20/20 06/20/20 06/21/20 18:03 21:38 00:45 Creatine Kinase CK-MB (CK-2) Troponin I 3.920 3.990 3.110 NT-Pro-B Natriuret Pep Impressions: Chest X-Ray 06/20/20 12:56 IMPRESSION: NO ACUTE RADIOGRAPHIC FINDING IN THE CHEST. Assessment and Plan - Diagnosis (1) NSTEMI (non-ST elevated myocardial infarction) Is this a current diagnosis for this admission?: Yes Plan: His morning dose today completes his 48 hours of therapeutic Lovenox so we will go ahead and discontinue. Aspirin Plavix, beta-yann, atorvastatin Troponin peaked at 3.99 then trended down on telemetry Cardiology following. Discussed with Dr. Hooks today who informs me that given patient's comorbidities and high risk nature, his DNR status will pose a barrier to doing the left heart cath. I discussed with patient and his today and they are opting to revoke the DNR/DNI status and being a full code status ONLY for the [facility] procedure after which he will revert back to DNR/DNI. Will plan for transfer to [facility] on Tuesday for [facility]. (2) Acute on chronic diastolic (congestive) heart failure Is this a current diagnosis for this admission?: Yes Plan: echocardiogram showing normal EF of 50 to 55% without clear wall motion abnormality but study was technically suboptimal. Received a.m. dose of IV Lasix already. Switch to p.o. Lasix as recommended by cardiology. He has been diuresing very well. Strict I's and O's and monitor output 1500 cc fluid restriction (3) Acute and chronic respiratory failure with hypercapnia Is this a current diagnosis for this admission?: Yes Plan: Improved on VBG this morning. Continue on nasal cannula. He will sleep with BiPAP at night. Likely from OHS and/or COPD [never diagnosed before with PFTs but has extensive smoking history] Discharge planning consult placed to get patient nightly NIPPV. Pulmonary function test tomorrow (4) Hypoxia Is this a current diagnosis for this admission?: Yes Plan: Patient was recently started on home oxygen 3 L. Chest x-ray shows findings suggestive of mild chronic interstitial disease. We will obtain PFTs tomorrow. (5) Frequent falls Is this a current diagnosis for this admission?: Yes Plan: PT/OT. He will need SNF. communications planner is on board. (6) Hallucinations Is this a current diagnosis for this admission?: Yes Plan: Has not occurred during hospitalization. Likely metabolic encephalopathy from CO2 retention. TSH is minimally depressed but free T4 is normal. (7) Hyperglycemia due to diabetes mellitus Is this a current diagnosis for this admission?: Yes Plan: Continue NPH. glipizide at lower dose. Hold Metformin as he will need cath soon. sliding scale and Accu-Cheks (8) Hypertension Qualifiers: Hypertension type: essential hypertension Qualified Code(s): I10 - Essential (primary) hypertension Is this a current diagnosis for this admission?: Yes Plan: Continue Coreg and benazepril. Discontinued amlodipine given peripheral swelling. (9) Chronic back pain Is this a current diagnosis for this admission?: Yes (10) Morbid obesity with BMI of 50.0-59.9, adult Is this a current diagnosis for this admission?: Yes - Time Time Spent with patient: 25-34 minutes Anticipated Discharge Disposition: [facility] for [facility] Anticipated Discharge Timeframe: within 48 hours
[2020-06-22] MEDS: TAMSULOSIN HCL 0.4 MG CAP.SR.24H PO SCH (17:01)
--- NOTE | 2020-06-22 18:01 | EKG REPORT ---
SEVERITY:- ABNORMAL ECG - SINUS RHYTHM NONSPECIFIC INTRAVENTRICULAR CONDUCTION DELAY CONSIDER ANTEROSEPTAL INFARCT PVC BORDERLINE ST DEPRESSION, LATERAL LEADS : Confirmed by: Bon Juárez MD 22-Jun-2020 18:00:47
[2020-06-22] MEDS: ATORVASTATIN CALCIUM 80 MG TABLET PO SCH (21:24)
[2020-06-23] MEDS: IPRATROPIUM/ALBUTEROL 0.5-2.5 MG/3 ML AMPUL NEB SCH ×3 (02:22→13:54)
[2020-06-23] MEDS: PANTOPRAZOLE SODIUM 40 MG TABLET.DR PO SCH (05:34)
[2020-06-23] MEDS: INSULIN NPH (ISOPHANE), HUMAN 100 UNIT/ML 3 ML SUBCUT SCH (08:33)
[2020-06-23] MEDS: GLIPIZIDE 10 MG TABLET PO SCH (08:34)
[2020-06-23] MEDS: INSULIN LISPRO 100 UNIT/ML 3 ML VIAL SUBCUT SCH ×2 (08:34→11:56)
[2020-06-23] MEDS ORDERED: ALBUTEROL SULFATE 0.083% NEB 2.5 MG/3 ML AMPUL NEB PRN (09:00)
[2020-06-23] MEDS: DULOXETINE HCL 30 MG CAPSULE.DR PO SCH (09:44)
[2020-06-23] MEDS: CARVEDILOL 12.5 MG TABLET PO SCH (09:44)
[2020-06-23] MEDS: MELOXICAM 7.5 MG TABLET PO SCH (09:45)
[2020-06-23] MEDS: CLOPIDOGREL BISULFATE 75 MG TABLET PO SCH (09:45)
[2020-06-23] MEDS: BENAZEPRIL HCL 20 MG TABLET PO SCH (09:45)
[2020-06-23] MEDS: FINASTERIDE 5 MG TABLET PO SCH (09:45)
[2020-06-23] MEDS: TERBINAFINE HCL 250 MG TABLET PO SCH (09:45)
[2020-06-23] MEDS: ASPIRIN 81 MG TABLET, CHEWABLE PO SCH (09:45)
[2020-06-23] MEDS ORDERED: FUROSEMIDE 40 MG TABLET PO SCH (10:00)
[2020-06-23] MEDS ORDERED: ENOXAPARIN SODIUM INJ 150 MG/1 ML DISP.SYRIN SUBCUT SCH (10:00)
[2020-06-23] MEDS ORDERED: ENOXAPARIN SODIUM INJ 40 MG/0.4 ML DISP.SYRIN SUBCUT SCH (10:00)
--- NOTE | 2020-06-23 10:16 | PDOC PROGRESS REPORT ---
Subjective Date:: 06/23/20 Subjective:: Patient seen and examined. Resting comfortably. No chest pain is endorsed. Reason For Visit: NSTEMI,HEART FAILURE Physical Exam Vital Signs: Temp Pulse Resp BP Pulse Ox 98.2 F 91 15 145/71 H 94 06/23/20 10:00 06/23/20 08:36 06/23/20 08:36 06/23/20 07:47 06/23/20 08:36 Intake & Output 06/22/20 06/23/20 06/24/20 06:59 06:59 06:59 Intake Total 840 1217 Output Total 3422 7111 Balance -5631 -3560 General appearance: PRESENT: cooperative, obese, well-developed, well-nourished Head exam: PRESENT: atraumatic, normocephalic Eye exam: PRESENT: EOMI Mouth exam: PRESENT: moist Respiratory exam: PRESENT: clear to auscultation carlos, symmetrical, unlabored Cardiovascular exam: PRESENT: RRR, +S1, +S2, other - Healed sternotomy Pulses: PRESENT: normal radial pulses GI/Abdominal exam: PRESENT: soft Rectal exam: PRESENT: deferred Neurological exam: PRESENT: alert, awake, oriented to person, oriented to place, oriented to time Psychiatric exam: PRESENT: appropriate affect Skin exam: PRESENT: dry, intact, normal color Results Laboratory Results: 06/22/20 05:24 06/22/20 05:24 06/20/20 06/20/20 06/20/20 12:40 12:40 15:40 Creatine Kinase 243 H CK-MB (CK-2) 27.60 H Troponin I 2.430 Cancelled NT-Pro-B Natriuret Pep 1470 H 06/20/20 06/20/20 06/21/20 18:03 21:38 00:45 Creatine Kinase CK-MB (CK-2) Troponin I 3.920 3.990 3.110 NT-Pro-B Natriuret Pep EKG Comments: Twelve-lead EKG 06/20/2020. Independently viewed by me. Sinus rhythm, 87 bpm, nonspecific IVCD, QTC is 429 ms Transthoracic echocardiogram 06/20/2020 Left ventricle ejection fraction 50 to 55% Mild MR, mild tricuspid regurgitation no pericardial effusion Cardiac troponin 06/20/2020 1240-2 0.43 06/20/2020 1803-3 0.92 06/20/2020 2138-3.99 06/21/2020 0045-3.11 Impressions: Chest X-Ray 06/20/20 12:56 IMPRESSION: NO ACUTE RADIOGRAPHIC FINDING IN THE CHEST. Assessment & Plan - Diagnosis (1) Hypertension Qualifiers: Hypertension type: essential hypertension Qualified Code(s): I10 - Essential (primary) hypertension Is this a current diagnosis for this admission?: Yes Plan: Systemic hypertension Continue current management Avoid added salt (2) Hypercholesterolemia Is this a current diagnosis for this admission?: Yes Plan: Continue statin (3) Heart failure with preserved ejection fraction Qualifiers: Heart failure chronicity: chronic Qualified Code(s): I50.32 - Chronic diastolic (congestive) heart failure Is this a current diagnosis for this admission?: Yes Plan: Systemic hypertension Continue current management Avoid added salt (4) NSTEMI (non-ST elevated myocardial infarction) Is this a current diagnosis for this admission?: Yes Plan: Coronary artery disease-remote CABG Elevated troponin Presently chest pain-free EKG without ischemic changes Continue enoxaparin therapeutic dose Dr. Hooks admit made arrangements for cardiac catheterization for this patient. Will follow through. I discussed the care plan with them and patient is on board. Presently he denies any chest pain. We will continue medical therapy for now Congestive heart failure with preserved ejection fraction Appears euvolemic Continue maintenance diuretic
--- NOTE | 2020-06-23 12:11 | PDOC TRANSFER SUMMARY ---
General Admission Date/PCP: 06/20/20 16:27 NELY MEDEROS Admission Date: 06/20/20 Transfer Date: 06/23/20 Accepting Facility: [facility] Accepting Physician: Dr. Hilaria Motta Resuscitation Status: Do Not Resuscitate - Transfer Diagnosis (1) NSTEMI (non-ST elevated myocardial infarction) Is this a current diagnosis for this admission?: Yes (2) Acute on chronic diastolic (congestive) heart failure Is this a current diagnosis for this admission?: Yes (3) Acute and chronic respiratory failure with hypercapnia Is this a current diagnosis for this admission?: Yes (4) Hypoxia Is this a current diagnosis for this admission?: Yes (5) Frequent falls Is this a current diagnosis for this admission?: Yes (6) Hallucinations Is this a current diagnosis for this admission?: Yes (7) Hyperglycemia due to diabetes mellitus Is this a current diagnosis for this admission?: Yes (8) Hypertension Is this a current diagnosis for this admission?: Yes (9) Chronic back pain Is this a current diagnosis for this admission?: Yes (10) Morbid obesity with BMI of 50.0-59.9, adult Is this a current diagnosis for this admission?: Yes - Transfer Medications Home Medications: Amlodipine Besylate [Norvasc 10 mg Tablet] 10 mg PO DAILY 06/25/19 Benazepril HCl [Lotensin] 40 mg PO DAILY 06/25/19 Carvedilol [Coreg 25 mg Tablet] 25 mg PO Q12 06/25/19 Meloxicam [Mobic] 15 mg PO DAILY 06/25/19 Metformin HCl [Glucophage] 1,000 mg PO BID 06/25/19 Tamsulosin HCl [Flomax 0.4 mg Cap.sr] 0.4 mg PO DAILY 06/25/19 Duloxetine HCl [Cymbalta] 60 mg PO BID 04/26/20 Glipizide [Glucotrol 10 mg Tablet] 20 mg PO DAILY 04/26/20 Insulin NPH Human Isophane [Novolin N Flexpen] 34 unit SQ BID 04/26/20 Aspirin [Aspirin 81 mg Chewable Tablet] 81 mg PO QAM 06/20/20 Cyclobenzaprine HCl [Flexeril 10 mg Tablet] 10 mg PO TIDP PRN 06/20/20 Terbinafine HCl [Lamisil 250 mg Tablet] 250 mg PO DAILY 06/20/20 Transfer Medications: Current Medications Acetaminophen (Tylenol 325 Mg Tablet) 975 mg PO Q4HP PRN PRN Reason: FOR PAIN SCALE 1-3 Stop: 07/20/20 18:04 Last Admin: 06/21/20 21:29 Dose: 975 mg Documented by: Al Hydrox/Mg Hydrox/Simethicone (Maalox Plus Susp 30 Udcup) 15 ml PO Q6HP PRN PRN Reason: HEARTBURN Stop: 07/20/20 17:36 Albuterol (Ventolin 0.042% Neb 1.25 Mg/3 Ml Ampul) 1.25 mg NEB RTQ6HP PRN PRN Reason: SHORTNESS OF BREATH Stop: 07/20/20 20:23 Albuterol (Ventolin 0.083% Neb 2.5 Mg/3 Ml Ampul) 2.5 mg NEB .PRE/POSTPFT PRN PRN Reason: For Pre/Post PFT Spirometry Stop: 06/24/20 08:59 Albuterol/Ipratropium (Duoneb 3 Ml Ampul) 3 ml NEB RTQ6 [facility] Stop: 07/21/20 01:59 Last Admin: 06/23/20 08:35 Dose: 3 ml Documented by: Aspirin (Aspirin 81 Mg Chewable Tablet) 81 mg PO DAILY [facility] Stop: 07/21/20 09:59 Last Admin: 06/23/20 09:45 Dose: 81 mg Documented by: Atorvastatin Calcium (Lipitor 80 Mg Tablet) 80 mg PO QHS [facility] Stop: 07/21/20 21:59 Last Admin: 06/22/20 21:24 Dose: 80 mg Documented by: Benazepril HCl (Lotensin 20 Mg Tablet) 40 mg PO DAILY [facility] Stop: 07/21/20 09:59 Last Admin: 06/23/20 09:45 Dose: 40 mg Documented by: Carvedilol (Coreg 12.5 Mg Tablet) 25 mg PO Q12 [facility] Stop: 07/22/20 21:59 Last Admin: 06/23/20 09:44 Dose: 25 mg Documented by: Clopidogrel Bisulfate (Plavix 75 Mg Tablet) 75 mg PO DAILY [facility] Stop: 07/21/20 09:59 Last Admin: 06/23/20 09:45 Dose: 75 mg Documented by: Cyclobenzaprine HCl (Flexeril 10 Mg Tablet) 10 mg PO TIDP PRN PRN Reason: MUSCLE SPASMS Stop: 07/21/20 07:58 Dextrose (Dextrose Inj 50% Syringe (25 Gm/50 Ml)) 25 gm IV PRN PRN; Protocol PRN Reason: PER PROTOCOL Stop: 07/20/20 18:07 Dextrose (Dextrose Inj 50% Syringe (25 Gm/50 Ml)) 12.5 gm IV PRN PRN; Protocol PRN Reason: FOR BG 50-69 IN ALERT PATIENT Stop: 07/20/20 18:07 Duloxetine HCl (Cymbalta 30 Mg Capsule.Dr) 60 mg PO Q12 [facility] Stop: 07/20/20 21:59 Last Admin: 06/23/20 09:44 Dose: 60 mg Documented by: Enoxaparin Sodium (Lovenox Inj 40 Mg/0.4 Ml Disp.Syrin) 40 mg SUBCUT DAILY [facility] Stop: 07/23/20 09:59 Last Admin: 06/23/20 09:44 Dose: 40 mg Documented by: Finasteride (Proscar 5 Mg Tablet) 5 mg PO DAILY [facility] Stop: 07/21/20 09:59 Last Admin: 06/23/20 09:45 Dose: 5 mg Documented by: Furosemide (Lasix 40 Mg Tablet) 40 mg PO DAILY [facility] Stop: 07/23/20 09:59 Last Admin: 06/23/20 09:45 Dose: 40 mg Documented by: Glipizide (Glucotrol 10 Mg Tablet) 10 mg PO QAM [facility] Stop: 07/22/20 07:59 Last Admin: 06/23/20 08:34 Dose: 10 mg Documented by: Glucagon (Glucagen Inj 1 Mg Vial) 1 mg IM PRN PRN; Protocol PRN Reason: Evaluate for BG < 70 Stop: 07/20/20 18:07 Glucose (Glutose 40% Gel 15 Gm Tube) 15 gm PO PRN PRN; Protocol PRN Reason: FOR BG 50-69 IN ALERT PATIENT Stop: 07/20/20 18:07 Glucose (Glutose 40% Gel 15 Gm Tube) 30 gm PO PRN PRN; Protocol PRN Reason: FOR BG < 50 IN ALERT PATIENT Stop: 07/20/20 18:07 Insulin Human Lispro (Humalog Insulin 100 Unit/1 Ml 3 Ml Vial) 0 - 12 unit SUBCUT ACHS [facility]; Protocol Stop: 07/20/20 21:59 Last Admin: 06/23/20 08:34 Dose: 2 unit Documented by: Insulin Human NPH (Humulin N (Nph) Insulin 100 Unit/1 Ml 3 Ml) 35 unit SUBCUT BIDACBS [facility] Stop: 07/21/20 08:59 Last Admin: 06/23/20 08:33 Dose: 35 unit Documented by: Meloxicam (Mobic 7.5 Mg Tablet) 7.5 mg PO DAILY [facility] Stop: 07/21/20 09:59 Last Admin: 06/23/20 09:45 Dose: 7.5 mg Documented by: Nitroglycerin (Nitrostat 0.4 Mg (1/150 Gr) Tabs 25/Bottle) 1 tab SL Q5MP PRN PRN Reason: FOR CHEST PAIN Stop: 07/20/20 18:29 Ondansetron HCl (Zofran Inj/Pf 4 Mg/2 Ml Sdv) 4 mg IV Q8HP PRN PRN Reason: FOR NAUSEA/VOMITING Stop: 07/20/20 17:36 Pantoprazole Sodium (Protonix [address] Tablet) 40 mg PO Q6AM [facility] Stop: 07/21/20 05:59 Last Admin: 06/23/20 05:34 Dose: 40 mg Documented by: Tamsulosin HCl (Flomax 0.4 Mg Cap.Sr) 0.4 mg PO PCSUPPER [facility] Stop: 07/21/20 17:59 Last Admin: 06/22/20 17:01 Dose: 0.4 mg Documented by: Terbinafine HCl (Lamisil 250 Mg Tablet) 250 mg PO DAILY [facility] Stop: 06/28/20 09:59 Last Admin: 06/23/20 09:45 Dose: 250 mg Documented by: Tramadol HCl (Ultram 50 Mg Tablet) 50 mg PO Q8HP PRN PRN Reason: FOR PAIN SCALE 4-5 Stop: 06/27/20 18:00 - Allergies Allergies/Adverse Reactions: iodine Allergy (Verified 03/17/18 11:05) Iodinated Contrast Media Adverse Reaction (Verified 04/26/20 00:10) Hives - Diet/Activity Discharge Diet: Cardiac, Diabetic Hospital Course Hospital Course: History of Present Illness: ISAMAR ROBERSON is a 70 M with CAD s/p CABG 30 years ago, Morbid obesity, hypertension, hyperlipidemia, diabetes type 2, who presents to the hospital for evaluation of acute worsening shortness of breath. Patient states he did not have any chest pain at that time but states that he had back pain in his upper back. Patient's also noted that he was grabbing his chest during the episode earlier. He has chronic shortness of breath and sleeps in a recliner due to orthopnea. This has been going on for a while. He has been unable to tolerate laying down flat. He has also had worsening swelling in his lower extremities bilaterally. Denies any fevers or chills. Denies any history of diagnosis of COPD or asthma. He did smoke in the past but has stopped a while ago. He also denies any sick contacts. Denies any new onset cough, rhinorrhea. In the ER patient was noted to have significant trouble breathing and was placed on his BiPAP. Blood work also notable for elevated troponin. . (1) NSTEMI (non-ST elevated myocardial infarction) Is this a current diagnosis for this admission?: Yes Plan: Completed his 48 hours of therapeutic Lovenox yesterday. Aspirin Plavix, beta-yann, atorvastatin Troponin peaked at 3.99 then trended down on telemetry Cardiology following. Discussed with Dr. Hooks yesterday who informs me that given patient's comorbidities and high risk nature, his DNR status will pose a barrier to doing the left heart cath. I discussed with patient and his and they are opting to revoke the DNR/DNI status and being a full code status ONLY for the [facility] procedure after which he will revert back to DNR/DNI. Being transferred to [facility] for [facility]. (2) Acute on chronic diastolic (congestive) heart failure Is this a current diagnosis for this admission?: Yes Plan: echocardiogram showing normal EF of 50 to 55% without clear wall motion abnormality but study was technically suboptimal. Received a.m. dose of IV Lasix initially but now on p.o. Lasix 4omg daily as recommended by cardiology. Strict I's and O's and monitor output 1500 cc fluid restriction (3) Acute and chronic respiratory failure with hypercapnia Is this a current diagnosis for this admission?: Yes Plan: On admission few days ago vbg showed ph 7.22, pco2 100, bicarc of 40. Required Bipap. Last vbg was yesterday ph 7.41, pco2 61, bicarb 38. Currently just on nasal cannula. Etiology is likely from OHS and/or COPD [never diagnosed before with PFTs but has extensive smoking history] He will need PFTs. He will benefit from nightly NIPPV. Has not had sleep study either. (4) Hypoxia Is this a current diagnosis for this admission?: Yes Plan: Patient was recently started on home oxygen 3 L about 2 months ago. Chest x-ray shows findings suggestive of mild chronic interstitial disease. Will need PFTs. (5) Frequent falls Is this a current diagnosis for this admission?: Yes Plan: PT/OT/SW. Potential for SNF. (6) Hallucinations Is this a current diagnosis for this admission?: Yes Plan: Has not occurred during hospitalization. Likely metabolic encephalopathy from CO2 retention. TSH is minimally depressed but free T4 and T3 are normal. (7) Hyperglycemia due to diabetes mellitus Is this a current diagnosis for this admission?: Yes Plan: Continue NPH. glipizide. Hold Metformin as he will need cath soon. sliding scale and Accu-Cheks (8) Hypertension Qualifiers: Hypertension type: essential hypertension Qualified Code(s): I10 - Essenti al (primary) hypertension Is this a current diagnosis for this admission?: Yes Plan: Continue Coreg and benazepril. Discontinued amlodipine given peripheral swelling. (9) Chronic back pain Is this a current diagnosis for this admission?: Yes (10) Morbid obesity with BMI of 50.0-59.9, adult Is this a current diagnosis for this admission?: Yes Verbal signout given today by me via phone to BAR at [employer] Physical Exam Vital Signs: Temp Pulse Resp BP Pulse Ox 98.2 F 91 15 145/71 H 94 06/23/20 10:00 06/23/20 08:36 06/23/20 08:36 06/23/20 07:47 06/23/20 08:36 Intake & Output 06/22/20 06/23/20 06/24/20 06:59 06:59 06:59 Intake Total 840 1217 Output Total 6871 0205 Balance -9632 -1202 General appearance: PRESENT: no acute distress, cooperative, morbidly obese Neck exam: ABSENT: JVD Respiratory exam: PRESENT: clear to auscultation carlos, unlabored. ABSENT: crackles, wheezes Cardiovascular exam: PRESENT: RRR, +S1, +S2. ABSENT: tachycardia GI/Abdominal exam: PRESENT: soft. ABSENT: rebound, rigid, tenderness Extremities exam: PRESENT: full ROM, other - bilateral lower extremity with si gnificant nonpitting edema. ABSENT: calf tenderness, tenderness Neurological exam: PRESENT: alert, awake, oriented to person, oriented to place, oriented to time, oriented to situation Psychiatric exam: ABSENT: agitated, anxious Focused psych exam: ABSENT: internal stimuli Results Laboratory Results: 06/22/20 05:24 06/22/20 05:24 06/20/20 06/20/20 06/20/20 12:40 12:40 15:40 Creatine Kinase 243 H CK-MB (CK-2) 27.60 H Troponin I 2.430 Cancelled NT-Pro-B Natriuret Pep 1470 H 06/20/20 06/20/20 06/21/20 18:03 21:38 00:45 Creatine Kinase CK-MB (CK-2) Troponin I 3.920 3.990 3.110 NT-Pro-B Natriuret Pep Impressions: Chest X-Ray 06/20/20 12:56 IMPRESSION: NO ACUTE RADIOGRAPHIC FINDING IN THE CHEST. Plan Time Spent: Greater than 30 Minutes
[2020-06-23 14:31] VITALS: BP 137/70
== END 2020-06-23 15:26 | disposition short-term general hospital (02) | DRG 280 ==
LOC: ER 12:25 → EH 16:27 → 3W 20:18
PROVIDERS: ADMIT Internal Medicine; ATTEND Internal Medicine
PROC: 5A09457 Assistance with Respiratory Ventilation, 24-96 Consecutive Hours, Continuous Positive Airway Pressure (ICD-10-PCS; principal; 2020-06-20)
DX: I21.4 Non-ST elevation (NSTEMI) myocardial infarction (principal); J96.22 Acute and chronic respiratory failure with hypercapnia; I50.33 Acute on chronic diastolic (congestive) heart failure; Z68.43 Body mass index [BMI] 50.0-59.9, adult; E66.2 Morbid (severe) obesity with alveolar hypoventilation; I25.10 Atherosclerotic heart disease of native coronary artery without angina pectoris; Z95.1 Presence of aortocoronary bypass graft; M54.9 Dorsalgia, unspecified; G89.29 Other chronic pain; E11.65 Type 2 diabetes mellitus with hyperglycemia; Z20.828 Contact with and (suspected) exposure to other viral communicable diseases; E78.5 Hyperlipidemia, unspecified; I11.0 Hypertensive heart disease with heart failure; Z91.81 History of falling; Z91.041 Radiographic dye allergy status; Z88.8 Allergy status to other drugs, medicaments and biological substances; Z87.891 Personal history of nicotine dependence; I25.2 Old myocardial infarction; K21.9 Gastro-esophageal reflux disease without esophagitis; Z90.49 Acquired absence of other specified parts of digestive tract; Z79.4 Long term (current) use of insulin; Z79.899 Other long term (current) drug therapy; Z79.82 Long term (current) use of aspirin; Z99.81 Dependence on supplemental oxygen; Z66 Do not resuscitate
CPT/HCPCS: 36415; 71045; 80048; 80053; 81001; 82550; 82553; 82803; 82962; 83735; 83880; 84100; 84439; 84443; 84481; 84484; 85025; 85027; 85610; 85730; 87040; 87635; 93005; 93010; 93306; 94640; 94660; 99285; C9803; J1650; J1815; J1940; J2920; J3490